=== PATIENT | female | born 1950 | race Caucasian/White ===

== ENCOUNTER 2019-03-08 08:15 | Day surgery (SDC) | payer OTHER, BC ==
--- OUTSIDE RECORDS SUMMARY | 2019-03-08 08:22 | XMS REPORT ---
:1950 Author Organization [facility] Address [facility] [address] [place] [address] Care Team Providers Name Role Phone TARIQ OLIVO Unavailable Unavailable Problems This patient has no known problems. Allergies, Adverse Reactions, Alerts This patient has no known allergies or adverse reactions. Medications This patient has no known medications. Results Test Description Test Time Test Comments Text Results Atomic Results Result Comments CSF CULTURE + GRAM STAIN 2016-06-12 08:55:00 Test Item Value Reference Range Comments CULTURE (BEAKER) (test qfev=4784) No growth GRAM STAIN RESULT (BEAKER) (test wqot=9633) No White blood cells seen GRAM STAIN RESULT (BEAKER) (test sddm=81937) No organisms seen HSV 1/2 PCR, [id number] 13:55:00 Test Item Value Reference Range Comments HSV BY PCR (BEAKER) (test hbnm=503) NEGATIVE NEGATIVE Herpes Simplex Virus (HSV) not detected.These assays were performed by real- time PCR utilizing fluorogenic hydrolysis probe technology for the detection of Herpes Simplex Virus-1 and/or Herpes Simplex Virus-2 in approved specimens. A 154 base pair region of the HSV-1 and HSV-2 UL5 gene is amplified, and typing is achieved by using type specific probes. An internal control is used to confirm PCR amplification. Genetic variation and other factors can affect the accuracy of nucleic acid testing; therefore, the results should be interpreted in light of clinical data.This test was developed and its performance characteristics determined by the [facility] Pathology Department, Section of Molecular Pathology. It has not been cleared or approved by the U.S. Food and Drug Administration (FDA), as FDA approval is not required for clinical use of the test. Validation was done as required by the Clinical Laboratory Amendments of 1988.CBC W/PLT COUNT & AUTO [id number] 05:40:00 Test Item Value Reference Range Comments WHITE BLOOD CELL COUNT (BEAKER) (test antm=714) 3.2 K/ L 4.0-10.0 RED BLOOD CELL COUNT (BEAKER) (test lvkb=550) 3.52 M/ L 4.00-5.00 HEMOGLOBIN (BEAKER) (test nzrp=734) 10.5 GM/DL 12.0-15.0 HEMATOCRIT (BEAKER) (test ndky=458) 33.5 % 36.0-45.0 MEAN CORPUSCULAR VOLUME (BEAKER) (test qiul=411) 95.1 fL 82.0-99.0 MEAN CORPUSCULAR HEMOGLOBIN (BEAKER) (test 29.8 pg 27.0-33.0 hjgf=862) MEAN CORPUSCULAR HEMOGLOBIN CONC (BEAKER) (test 31.4 GM/DL 32.0-36.0 ttyd=135) RED CELL DISTRIBUTION WIDTH (BEAKER) (test 12.8 % 10.3-14.2 mmvt=792) PLATELET COUNT (BEAKER) (test jftg=287) 164 K/CU MM 150-430 MEAN PLATELET VOLUME (BEAKER) (test qhcf=190) 7.5 fL 6.5-10.5 NUCLEATED RED BLOOD CELLS (BEAKER) (test 0 /100 WBC 0-0 sfpg=021) NEUTROPHILS RELATIVE PERCENT (BEAKER) (test 83 % rugt=582) LYMPHOCYTES RELATIVE PERCENT (BEAKER) (test 16 % axvl=825) MONOCYTES RELATIVE PERCENT (BEAKER) (test 2 % qish=969) EOSINOPHILS RELATIVE PERCENT (BEAKER) (test 0 % skmc=901) BASOPHILS RELATIVE PERCENT (BEAKER) (test 0 % slas=147) NEUTROPHILS ABSOLUTE COUNT (BEAKER) (test 2.68 K/ L 1.80-8.00 aror=926) LYMPHOCYTES ABSOLUTE COUNT (BEAKER) (test 0.50 K/ L 1.48-4.50 gvoq=453) MONOCYTES ABSOLUTE COUNT (BEAKER) (test 0.05 K/ L 0.00-1.30 vqie=654) EOSINOPHILS ABSOLUTE COUNT (BEAKER) (test 0.00 K/ L 0.00-0.50 cwlk=427) BASOPHILS ABSOLUTE COUNT (BEAKER) (test 0.00 K/ L 0.00-0.20 vlle=526) 0.00BASI METABOLIC [id number] 05:15:00 Test Item Value Reference Range Comments SODIUM (BEAKER) (test 140 meq/L 136-145 fnrq=436) POTASSIUM (BEAKER) (test 4.0 meq/L 3.5-5.1 Specimen slightly jtyu=727) hemolyzed CHLORIDE (BEAKER) (test 107 meq/L 98-107 vnzu=871) CO2 (BEAKER) (test 22 meq/L 22-29 yiqw=671) BLOOD UREA NITROGEN 22 mg/dL 7-21 (BEAKER) (test iywa=674) CREATININE (BEAKER) (test 0.70 mg/dL 0.57-1.25 Specimen slightly nuex=518) hemolyzed GLUCOSE RANDOM (BEAKER) 155 mg/dL 70-105 (test xdio=737) CALCIUM (BEAKER) (test 8.5 mg/dL 8.4-10.2 ffwg=352) EGFR (BEAKER) (test 83 mL/min/1.73 sq m ESTIMATED GFR IS NOT kkgb=7511) ACCURATE CREATININE CLEARANCE IN PREDICTING GLOMERULAR FILTRATION RATE. ESTIMATED GFR IS NOT APPLICABLE FOR DIALYSIS PATIENTS. CBC W/PLT COUNT & AUTO [id number] 10:46:00 Test Item Value Reference Range Comments WHITE BLOOD CELL COUNT (BEAKER) (test fiwj=918) 2.5 K/ L 4.0-10.0 RED BLOOD CELL COUNT (BEAKER) (test hmbw=115) 3.38 M/ L 4.00-5.00 HEMOGLOBIN (BEAKER) (test tzgz=389) 10.6 GM/DL 12.0-15.0 HEMATOCRIT (BEAKER) (test qyqr=614) 32.9 % 36.0-45.0 MEAN CORPUSCULAR VOLUME (BEAKER) (test tgkv=181) 97.2 fL 82.0-99.0 MEAN CORPUSCULAR HEMOGLOBIN (BEAKER) (test 31.2 pg 27.0-33.0 kmaz=264) MEAN CORPUSCULAR HEMOGLOBIN CONC (BEAKER) (test 32.1 GM/DL 32.0-36.0 ngot=463) RED CELL DISTRIBUTION WIDTH (BEAKER) (test 13.8 % 10.3-14.2 qchx=418) PLATELET COUNT (BEAKER) (test bkiv=860) 146 K/CU MM 150-430 MEAN PLATELET VOLUME (BEAKER) (test wrqf=864) 7.1 fL 6.5-10.5 NUCLEATED RED BLOOD CELLS (BEAKER) (test 0 /100 WBC 0-0 cabm=275) NEUTROPHILS RELATIVE PERCENT (BEAKER) (test 44 % myli=366) LYMPHOCYTES RELATIVE PERCENT (BEAKER) (test 39 % iddx=245) MONOCYTES RELATIVE PERCENT (BEAKER) (test 13 % kbds=538) EOSINOPHILS RELATIVE PERCENT (BEAKER) (test 4 % ieup=164) BASOPHILS RELATIVE PERCENT (BEAKER) (test 1 % quih=664) NEUTROPHILS ABSOLUTE COUNT (BEAKER) (test 1.10 K/ L 1.80-8.00 hfsv=150) LYMPHOCYTES ABSOLUTE COUNT (BEAKER) (test 0.98 K/ L 1.48-4.50 jxfz=990) MONOCYTES ABSOLUTE COUNT (BEAKER) (test 0.33 K/ L 0.00-1.30 vews=593) EOSINOPHILS ABSOLUTE COUNT (BEAKER) (test 0.10 K/ L 0.00-0.50 duyr=252) BASOPHILS ABSOLUTE COUNT (BEAKER) (test 0.01 K/ L 0.00-0.20 bppj=604) 0.000.500.000.000.000.000.00(MANUAL DIFFERENTIAL)2016-06-09 10:46:00 Test Item Value Reference Range Comments TOTAL COUNTED (BEAKER) (test kkkr=9784) WBC MORPHOLOGY (BEAKER) (test kfkt=972) Normal PLT MORPHOLOGY (BEAKER) (test xamv=629) Normal RBC MORPHOLOGY (BEAKER) (test dvtl=158) Normal BASIC METABOLIC [id number] 05:41:00 Test Item Value Reference Range Comments SODIUM (BEAKER) (test 141 meq/L 136-145 mdgx=907) POTASSIUM (BEAKER) (test 3.5 meq/L 3.5-5.1 dvlj=271) CHLORIDE (BEAKER) (test 107 meq/L 98-107 yldw=988) CO2 (BEAKER) (test 24 meq/L 22-29 lcic=298) BLOOD UREA NITROGEN 13 mg/dL 7-21 (BEAKER) (test kmnr=600) CREATININE (BEAKER) (test 0.64 mg/dL 0.57-1.25 wfpp=952) GLUCOSE RANDOM (BEAKER) 106 mg/dL 70-105 (test tbkc=347) CALCIUM (BEAKER) (test 8.4 mg/dL 8.4-10.2 qyzs=098) EGFR (BEAKER) (test 93 mL/min/1.73 sq m ESTIMATED GFR IS NOT qels=4350) ACCURATE CREATININE CLEARANCE IN PREDICTING GLOMERULAR FILTRATION RATE. ESTIMATED GFR IS NOT APPLICABLE FOR DIALYSIS PATIENTS. CSF CELL COUNT [id number] 17:59:00 Test Item Value Reference Range Comments APPEARANCE CSF (BEAKER) (test ebmz=980) Clear Clear COLOR CSF (BEAKER) (test idjl=421) Colorless Colorless RBC CSF (BEAKER) (test rgmc=049) 59 /cu mm 0-5 WBC CSF (BEAKER) (test qxll=1884) 9 /cu mm <=5 RBCS FRESH (BEAKER) (test btla=8644) 100% Fresh NUMBER OF CELLS DIFF'D (BEAKER) (test rojf=3660) 20 NEUTROPHIL, CSF (BEAKER) (test usan=229) 0 % 0-5 LYMPHS CSF (BEAKER) (test nrcw=294) 80 % 40-80 MONO/MACROPHAGE CSF (BEAKER) (test svnx=807) 20 % 15-45 EOSINOPHILS CSF (BEAKER) (test mrro=328) 0 % <=0 BASO CSF (BEAKER) (test chxu=932) 0 % <=0 TUBE NUMBER CSF (BEAKER) (test euto=7535) 1 GLUCOSE, [id number] 17:10:00 Test Item Value Reference Range Comments GLUCOSE CSF (BEAKER) (test wkby=824) 55 mg/dL 40-70 PROTEIN, [id number] 17:10:00 Test Item Value Reference Range Comments PROTEIN CSF (BEAKER) (test aqcz=507) 59 mg/dL 15-45 HEMOGLOBIN [id number] 10:13:00 Test Item Value Reference Range Comments HEMOGLOBIN A1C (BEAKER) (test zomw=460) 5.2 % 4.3-6.1 BASIC METABOLIC [id number] 06:16:00 Test Item Value Reference Range Comments SODIUM (BEAKER) (test 137 meq/L 136-145 kihb=763) POTASSIUM (BEAKER) (test 3.9 meq/L 3.5-5.1 ddpf=242) CHLORIDE (BEAKER) (test 105 meq/L 98-107 qnvr=675) CO2 (BEAKER) (test 22 meq/L 22-29 leve=217) BLOOD UREA NITROGEN 12 mg/dL 7-21 (BEAKER) (test gbls=665) CREATININE (BEAKER) (test 0.60 mg/dL 0.57-1.25 jxco=120) GLUCOSE RANDOM (BEAKER) 87 mg/dL 70-105 (test jmzp=290) CALCIUM (BEAKER) (test 7.8 mg/dL 8.4-10.2 vwpu=564) EGFR (BEAKER) (test 100 mL/min/1.73 sq m ESTIMATED GFR IS NOT flmd=3806) ACCURATE CREATININE CLEARANCE IN PREDICTING GLOMERULAR FILTRATION RATE. ESTIMATED GFR IS NOT APPLICABLE FOR DIALYSIS PATIENTS. LIPID [id number] 06:07:00 Test Item Value Reference Range Comments TRIGLYCERIDES (BEAKER) (test iehu=135) 141 mg/dL CHOLESTEROL (BEAKER) (test pvgx=192) 194 mg/dL HDL CHOLESTEROL (BEAKER) (test vecf=051) 56 mg/dL LDL CHOLESTEROL CALCULATED (BEAKER) (test 110 mg/dL wljf=190) Triglyceride Reference Range: Low Risk <150 Borderline 150- 199 High Risk 200-499 Very High Risk >=500Cholesterol Reference Range: Low Risk <200 Borderline 200-239 High Risk > 240HDL Cholesterol Reference Range: Low Risk >=60 High Risk <40LDL Cholesterol Reference Range: Optimal <100 Near Optimal 100-129 Borderline 130-159 High 160-189 Very High >=190HEPATIC FUNCTION [id number] 06:07:00 Test Item Value Reference Range Comments TOTAL PROTEIN (BEAKER) (test fhxx=815) 5.5 gm/dL 6.0-8.3 ALBUMIN (BEAKER) (test btff=8042) 3.2 g/dL 3.5-5.0 BILIRUBIN TOTAL (BEAKER) (test tfnb=456) 0.5 mg/dL 0.2-1.2 BILIRUBIN DIRECT (BEAKER) (test scnh=445) 0.2 mg/dL 0.1-0.5 ALKALINE PHOSPHATASE (BEAKER) (test rihd=007) 59 U/L 40-150 AST (SGOT) (BEAKER) (test jbuk=503) 16 U/L 5-34 ALT (SGPT) (BEAKER) (test ojnb=761) 8 U/L 6-55 BASIC METABOLIC [id number] 05:40:00 Test Item Value Reference Range Comments SODIUM (BEAKER) (test 138 meq/L 136-145 urlz=326) POTASSIUM (BEAKER) (test 3.9 meq/L 3.5-5.1 qvoz=024) CHLORIDE (BEAKER) (test 107 meq/L 98-107 zzjv=680) CO2 (BEAKER) (test 23 meq/L 22-29 gjxs=742) BLOOD UREA NITROGEN 12 mg/dL 7-21 (BEAKER) (test fxvb=564) CREATININE (BEAKER) (test 0.59 mg/dL 0.57-1.25 rpfj=049) GLUCOSE RANDOM (BEAKER) 90 mg/dL 70-105 (test valh=758) CALCIUM (BEAKER) (test 7.8 mg/dL 8.4-10.2 baay=520) EGFR (BEAKER) (test 102 mL/min/1.73 sq m ESTIMATED GFR IS NOT emki=2116) ACCURATE CREATININE CLEARANCE IN PREDICTING GLOMERULAR FILTRATION RATE. ESTIMATED GFR IS NOT APPLICABLE FOR DIALYSIS PATIENTS. CBC W/PLT COUNT & AUTO [id number] 05:37:00 Test Item Value Reference Range Comments WHITE BLOOD CELL COUNT (BEAKER) (test utnh=247) 3.9 K/ L 4.0-10.0 RED BLOOD CELL COUNT (BEAKER) (test drlc=809) 3.45 M/ L 4.00-5.00 HEMOGLOBIN (BEAKER) (test lyel=378) 10.4 GM/DL 12.0-15.0 HEMATOCRIT (BEAKER) (test ihij=187) 32.6 % 36.0-45.0 MEAN CORPUSCULAR VOLUME (BEAKER) (test rgwh=270) 94.6 fL 82.0-99.0 MEAN CORPUSCULAR HEMOGLOBIN (BEAKER) (test 30.2 pg 27.0-33.0 gmen=634) MEAN CORPUSCULAR HEMOGLOBIN CONC (BEAKER) (test 32.0 GM/DL 32.0-36.0 smnp=902) RED CELL DISTRIBUTION WIDTH (BEAKER) (test 12.8 % 10.3-14.2 lqnj=915) PLATELET COUNT (BEAKER) (test jpns=241) 159 K/CU MM 150-430 MEAN PLATELET VOLUME (BEAKER) (test vmeq=612) 7.0 fL 6.5-10.5 NUCLEATED RED BLOOD CELLS (BEAKER) (test 0 /100 WBC 0-0 obcn=011) NEUTROPHILS RELATIVE PERCENT (BEAKER) (test 71 % oake=944) LYMPHOCYTES RELATIVE PERCENT (BEAKER) (test 16 % jzvl=143) MONOCYTES RELATIVE PERCENT (BEAKER) (test 11 % axxm=392) EOSINOPHILS RELATIVE PERCENT (BEAKER) (test 2 % mvtk=502) BASOPHILS RELATIVE PERCENT (BEAKER) (test 1 % hzpr=429) NEUTROPHILS ABSOLUTE COUNT (BEAKER) (test 2.75 K/ L 1.80-8.00 sudp=022) LYMPHOCYTES ABSOLUTE COUNT (BEAKER) (test 0.61 K/ L 1.48-4.50 hzwd=625) MONOCYTES ABSOLUTE COUNT (BEAKER) (test 0.43 K/ L 0.00-1.30 jcfz=537) EOSINOPHILS ABSOLUTE COUNT (BEAKER) (test 0.09 K/ L 0.00-0.50 yjbl=980) BASOPHILS ABSOLUTE COUNT (BEAKER) (test 0.02 K/ L 0.00-0.20 fkfz=375) [id number] 05:30:00 Test Item Value Reference Range Comments PROTIME (BEAKER) (test afss=389) 12.8 seconds 11.7-14.7 INR (BEAKER) (test pwqh=155) 1.0 <=5.9 PARTIAL THROMBOPLASTIN TIME (BEAKER) (test 26.3 seconds 22.5-36.0 pluw=548) RECOMMENDED COUMADIN/WARFARIN INR THERAPY RANGESSTANDARD DOSE: 2.0 - 3.0 Includes: PROPHYLAXIS forvenous thrombosis, systemic embolization; TREATMENT for venous thrombosis and/or pulmonary embolus.HIGH RISK: Target INR is 2.5-3.5 for patients with mechanical heart valves.POCT-GLUCOSE [id number] 22:11:00 Test Item Value Reference Range Comments POC-GLUCOSE METER (BEAKER) 107 mg/dL 70-110 TESTED AT [facility] [address] [facility] (test vsgl=5086) [facility] [address]
--- OUTSIDE RECORDS SUMMARY | 2019-03-08 08:22 | XMS REPORT ---
:1950 Author Organization [employer] Care Team Providers Name Role Phone Ranjan Membreno Provider Role Unavailable Allergies, Adverse Reactions, Alerts Substance Reaction Event Type codine Info Not Available Drug Allergy Sulfa Info Not Available Drug Allergy Problems Problem Type Condition Code Onset Dates Condition Status Assessment Pain of right hip joint M25.551 Active Assessment Right sciatic nerve pain M54.31 Active Problem Pain of right hip joint M25.551 Active Problem Abnormal mammogram R92.8 Active Problem Right sciatic nerve pain M54.31 Active Problem Asthma, unspecified asthma J45.909 Active severity, unspecified whether complicated, unspecified whether persistent Problem Essential hypertension I10 Active Problem Rheumatoid arthritis involving M06.9 Active multiple sites, unspecified rheumatoid factor presence Medications Medication Code Code Instructions Start End Status Dosage System Date Date Ferrous Sulfate [facility] 75946532645 325 (65 Fe) MG Active 1 tablet Orally Once a day Simvastatin ND 53525903084 20 MG Orally Active 1 tablet Once a day in the evening Leflunomide [facility] 54305263835 20 MG Orally Active 1 tablet Once a day Montelukast [facility] 75594450967 10 MG Orally Active 1 tablet Sodium Once a day Levothyroxine [facility] 98931972544 75 MCG Orally Active 1 tablet Sodium Once a day on an empty stomach in the morning Symbicort [facility] 73027747315 160-4.5 MCG/ACT Active 2 puffs Inhalation Twice a day Ibuprofen [facility] [address]-99 800 MG/8ML Active as Intravenous directed Lyrica [facility] 62180485221 100 MG Orally Active 1 capsule Three times a day Omeprazole ND 08621853932 20 MG Orally Active 1 capsule Once a day Lisinopril ND 21974396390 20 MG Orally Active 1 tablet Once a day ProAir HFA [facility] 70644375799 108 (90 Base) Active 2 puffs as MCG/ACT needed Inhalation every 6 hrs Results No Known Results Summary Purpose eClinicalWorks Submission
[2019-03-08 08:48] LABS: MPV 8.1 fL (7.6-11.3)
[2019-03-08 08:54] VITALS: BMI 28.3
[2019-03-08 08:57] LABS: Protime INR 0.99
[2019-03-08 09:22] LABS: Platelet Estimate ADEQ
[2019-03-08] MEDS ORDERED: ACETAMINOPHEN 500 MG TAB ONE (11:03)
--- NOTE | 2019-03-08 11:06 | RAD REPORT ---
EXAM DESCRIPTION: RAD - Spine Lumbar W obliques - 03/08/2019 10:43 am CLINICAL HISTORY: Back pain FINDINGS: Posterior fusion L4 and L5. Pedicular screws united by rods and bone plugs have been plac ed. Bones are osteoporotic. No fracture or dislocation Osteoarthritis involves the facet joints L5-S1
[2019-03-08 11:12] VITALS: O2SAT 96
--- NOTE | 2019-03-08 11:26 | RAD REPORT ---
EXAM DESCRIPTION: CTSpine Lumbar Wo Con03/08/2019 10:47 am CLINICAL HISTORY: Radiculopathy M54.5,M47.26 COMPARISON: December 2018 MRI TECHNIQUE: Computed axial tomography lumbar spine was obtained with coronal and sagittal reconstruct ion. 12 cc Isovue 200 was administered into the thecal sac All CT scans are performed using dose optimization technique as appropriate and may include automated exposure control or mA/KV adjustment according to patient size. FINDINGS: Minimal disc bulge L1-2 Disc bulge L2-3 mildly encroaches upon the thecal sac. The neural foramina are patent Disc bulge, ligamentum flavum and facet hypertrophy are present at L3-4. The thecal sac measures 9 mi llimeters. Mild narrowing of the neural foramina bilaterally Pedicular screws united by rods have been placed at L4 and L5. A bone plug is present at L4-5. A heidi laminectomy is present. The thecal sac is normal caliber. The neural foramina are patent. Specificall y the right neural foramina is not narrowed. Disc bulge and osteophyte L5-S1. Ligamentum flavum and facet hypertrophy. Mild narrowing of the theca l sac. Small right lateral disc herniation. Moderate to marked narrowing of the right neural foramina . IMPRESSION: Spondylosis L3-4 results in mild central spinal stenosis Posterior fusion L4 and L5 Spondylosis and small right lateral disc herniation L5-S1. This results in moderate to marked right f oraminal stenosis
--- NOTE | 2019-03-08 12:44 | RAD REPORT ---
EXAM DESCRIPTION: RAD - Myelography Lumbar - 03/08/2019 10:43 am CLINICAL HISTORY: Radiculopathy COMPARISON: MRI December 2018 TECHNIQUE: The procedure, risks and alternatives to the procedure were discussed with the patient in detail. After answering all questions, both oral and written consent were obtained. The patient was placed prone into the fluoroscopy suite. The skin and subcutaneous tissues were anest hetized with lidocaine. Under fluoroscopic guidance a 22 gauge spinal needle was advanced into the th ecal sac at the L2-3 level. 12 cc Isovue 200 was administered into the subarachnoid spaces 5 Fluoroscopic spot images were obtained. Fluoroscopy time 1.4 minutes. The patient then left for a CT scan. Patient's head was elevated 30 degrees IMPRESSION: Lumbar myelogram. Refer to the CT scan report for findings The patient experienced immediate complication
[2019-03-08 14:03] VITALS: BP 118/47; TEMP 97
== END 2019-03-08 13:00 | disposition home or self-care (01) ==
LOC: DS 08:15
PROVIDERS: ATTEND Specialist
DX: M54.5 Low back pain (principal); M47.26 Other spondylosis with radiculopathy, lumbar region
CPT/HCPCS: 36415; 62304; 72110; 72131; 85049; 85610; 85730

== ENCOUNTER 2020-02-03 10:09 | Day surgery (SDC) | payer OTHER, BC ==
[2020-02-01 15:58] LABS: Protime INR 1.23
--- NOTE | 2020-02-02 11:45 | EKG ---
Test Date: 2020-02-01 Test Time: 14:49:19 Property Insurance Claims Examiner: JEREMÍAS MEASUREMENT RESULTS: Intervals: Rate: 87 MN: 198 QRSD: 76 QT: 366 QTc: 440 [place]: P: 59 MN: 198 QRS: 0 T: 76 INTERPRETIVE STATEMENTS: Normal sinus rhythm Nonspecific ST abnormality Abnormal ECG Compared to ECG 10/06/2019 12:34:50 ST (T wave) deviation now present Atrial premature complex(es) no longer present Aberrant conduction of supraventricular beat(s) no longer present Left ventricular hypertrophy no longer present Electronically Signed On 02-02-20 11:40:47 NEIGHBORHOOD AIDE by Ney Nelson
--- OUTSIDE RECORDS SUMMARY | 2020-02-03 10:11 | XMS REPORT | Clinical Summary ---
:1950 Author Organization [facility] Address [address] [place] [address] Care Team Providers Name Role Phone Unavailable Primary Care Provider Unavailable Allergies Active Allergy Reactions Severity Noted Date Comments Codeine Nausea And Vomiting High 06/07/2016 Sulfa (Sulfonamide Antibiotics) Nausea And Vomiting High Tramadol Nausea And Vomiting High 06/08/2016 Medications Medication Sig Dispensed Refills Start Date End Date Status lisinopril Take 20 mg by 0 Activ e (PRINIVIL,ZESTRIL) 20 mouth daily. MG tablet omeprazole (PRILOSEC) Take 20 mg by 0 Active 20 MG capsule mouth daily. leflunomide (ARAVA) 20 Take 20 mg by 0 Active MG tablet mouth daily. predniSONE (DELTASONE) Take 5 mg by 0 Active 5 MG tablet mouth daily. calcium Take 1 tablet by 0 Act les carbonate-vitamin D3 mouth daily. (OSCAL-D) 500 mg(1,250mg) -200 unit per tablet coenzyme Q10 200 mg Take 200 mg by 0 Active capsule mouth daily. Active Problems Problem Noted Date Headache, unspecified headache type 06/07/2016 Social History Tobacco Use Types Packs/Day Years Used Date Never Smoker Alcohol Use Drinks/Week oz/Week Comments Not Asked Sex Assigned at Date Recorded Not on file Last Filed Vital Signs Not on file Plan of Treatment Not on file Results Not on fileafter 02/02/2019 Insurance Payer Benefit Plan / Subscriber ID Effective Dates Phone Addre ss Type Group MEDICARE MEDICARE A B [id number] 2013-Present Medicare [facility] POS [id number] 2016-Present HMO/POS - MGD CARE SELECT CHOICE Advance Directives For more information, please contact: [phone] Code Status Date Activated Date Inactivated Comments Full Code 06/07/2016 10:02 PM 06/11/2016 8:18 PM This code status was determined by: Patient
--- OUTSIDE RECORDS SUMMARY | 2020-02-03 10:12 | XMS REPORT ---
:1950 Author Organization [employer] Care Team Providers Name Role Phone Vivian Lala Provider Role Unavailable Allergies, Adverse Reactions, Alerts Substance Reaction Event Type Iron (Ferrous Gluconate) constipation Drug Allergy Sulfur Info Not Available Drug Allergy Remicade severe headaches Drug Allergy Hydroxychloroquine Sulfate nausea with Tramadol Drug Allergy Codeine Sulfate Info Not Available Drug Allergy Problems Problem Type Condition Code Onset Dates Condition Statu s Assessment Rheumatoid arthritis with M05.79 Ac tive rheumatoid factor of multiple sites without organ or systems involvement Assessment Pain, joint, multiple sites M25.50 Active Problem 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 therapy Problem Postmenopausal Z78.0 Active Problem Encounter for immunization Z23 A ctive Problem Benign essential hypertension I10 Active Problem Rheumatoid arthritis with M05.79 Ac tive rheumatoid factor of multiple sites without organ or systems involvement Problem Abnormal immunological finding in R76.9 Active serum Problem Osteoarthritis M19.90 Active Assessment Postmenopausal Z78.0 Active Assessment Other fpc (current) drug Z79.899 Active therapy Assessment Abnormal immunological finding in R76.9 Active serum Assessment Benign essential hypertension I10 Active Assessment Osteoarthritis M19.90 Active Medications Medication Code Code Instructions Start End Status Dosage System Date Date Ezetimibe [facility] 43560619069 10 MG Orally Active 1 tab let Once a day Omeprazole [facility] 23759844193 20 MG Orally Active 1 ca psule Once a day Ibuprofen [facility] 07843175795 800 MG Active TAKE 1 TABLET BY MOUTH TWICE A DAY WITH FOOD OR MILK NEEDED Montelukast ND 15664106873 10 MG Orally Active 1 t ablet in Sodium Once a day the evening Lyrica ND 70463803560 100 MG Orally Active 1 caps ule Once a day Cimzia [facility] 00010837416 2 X 200 MG/ML July 29Feb 09, Active 1 ml Prefilled Subcutaneous 2019 2019 every 2 weeks Leflunomide ND 83269084612 20 MG Orally Active 1 t ablet Once a day Duloxetine HCl ND 57618154140 60 MG Orally Active 1 capsule Once a day Lisinopril [facility] 52259451907 20 MG Orally Active 1 ta blet Once a day Albuterol ND 0 twice a day Active as direc ortiz (bid) as needed (prn) Symbicort [facility] 47234921215 160-4.5 MCG/ACT Active 2 puffs Inhalation Twice a day Vital Signs Date/Time: Dec 28, 2019 BMI 29.05 Index Weight 180 lbs Height 66 in Cardiac Monitoring Heart Rate 92 /min Blood Pressure Diastolic 98 mm Hg Blood Pressure Systolic 149 mm Hg Results No Known Results Summary Purpose eClinicalWorks Submission
--- OUTSIDE RECORDS SUMMARY | 2020-02-03 10:12 | XMS REPORT ---
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 91447217812 100 MG Orally Nov , Active 1 tablet twice a day 2019 (bid) Results No Known Results Summary Purpose eClinicalWorks Submission
--- OUTSIDE RECORDS SUMMARY | 2020-02-03 10:12 | XMS REPORT | Continuity of Care Document ---
:1950 Author Organization [employer] Care Team Providers Name Role Phone [employer] Unavailable Un available Problems Problem Status Onset Classification Date Comments Sourc e Date Reported Benign essential Active Problem 01/09/2020 [facility] hypertension [facility] [place] Rheumatoid Active Problem 01/09/[address] arthritis with of [facility] rheumatoid factor of multiple sites without organ or systems involvement Osteoarthritis Active Problem 01/09/2020 [facility] [place] Other [facility] Active Problem 01/09/2020 [facility] (current) drug of [facility] therapy Anemia Active Diagnosis 04/07/2019 [facility] [place] Heartburn Active Diagnosis 07/24/2019 [facility] [place] Pain in joint Active Diagnosis 07/24/2019 [facility] involving multiple o f [place] sites Postmenopausal Active Problem 01/09/2020 [facility] [place] Encounter for Active Problem 01/09/2020 [facility] immunization [facility] [place] Abnormal Active Problem 01/09/2020 [facility] immunological [facility] [place] finding in serum Pain, joint, Active Diagnosis 12/29/2019 [facility] multiple sites of [facility] Medications Medication Details Route Status Patient Ordering Order Source Instructions Provider Date Trimethoprim 1 tablet Orally Active 100 MG Orally Vo [facility] twice a day 020 [facility] (bid) [place] Leflunomide 1 tablet Orally Active 20 MG Orally Vo [facility] Once a day 020 [facility] [place] Cimzia 1 ml Subcutaneous Active 2 X 200 MG/ML [facility] Prefilled Subcutaneous 020 [facility] every 2 weeks [place] Duloxetine HCl 2 capsules Orally Active 30 MG Orally Vo R heum Once a day 020 [facility] [place] Leflunomide 1 tablet orally Active 20 mg orally Vo [facility] every day (qd) 019 [facility] [place] Rinvoq 1 tablet Orally Active 15 MG Orally Vo [facility] Once a day 019 [facility] [place] PredniSONE 1 tablet Orally Active 10 mg Orally [facility] Once a day 019 [facility] [place] Lyrica 1 capsule Orally Active 100 MG Orally [facility] Once a day [facility] [place] Iron 1 tablet Orally Active 325 (65 Fe) MG Vo [facility] Orally Once a [facility] of day [place] Albuterol as NA Active twice a day [facility] directed (bid) as [facility]tr of needed (prn) [place] Lisinopril 1 tablet Orally Active 20 MG Orally Vo [facility] Once a day [facility] [place] Omeprazole 1 capsule Orally Active 20 MG Orally [facility] Once a day [facility] [place] Promethazine 0.5 tablet Orally Active 50 MG Orally Vo [facility] HCl as needed every 12 hrs [facility] [place] Montelukast 1 tablet Orally Active 10 MG Orally [facility] Sodium in the Once a day [facility]tr of evening [place] Symbicort 2 puffs Inhalation Active 160-4.5 [facility] MCG/ACT [facility] Inhalation [place] Twice a day Ibuprofen TAKE 1 NA Active 800 MG [facility] TABLET BY [facility] MOUTH [place] TWICE A DAY WITH FOOD OR MILK NEEDED Lyrica 1 capsule Orally Active 75 MG Orally Vo [facility] Twice a day [facility] [place] Orencia 1 ml Subcutaneous Active 125 MG/ML Vo [facility] ClickJect Subcutaneous [facility]tr of once a week [place] Leflunomide 1 tablet Orally Active 20 MG Orally [facility] Once a day [facility] [place] Duloxetine HCl 1 capsule Orally Active 60 MG Orally [facility] Rh eum Once a day [facility] [place] Ezetimibe 1 tablet Orally Active 10 MG Orally [facility] Once a day [facility] [place] Omeprazole 1 capsule Orally Active 20 MG Orally [facility] Once a day [facility] [place] Lisinopril 1 tablet Orally Active 20 MG Orally [facility] Once a day [facility] [place] Allergies, Adverse Reactions, Alerts Substance Category Reaction Severity Reaction Status Date Comments S ource type Reported Iron (Ferrous Adverse constipation Adverse Active Rhe[facility] Gluconate) Reaction Reaction 0 [facility] [place] Sulfur Adverse Info Not Adverse Active Rhe[facility] Reaction Available Reaction 0 [facility] [place] Remicade Adverse severe Adverse Active [facility] Reaction headaches Reaction 0 [facility] [place] Hydroxychloroq Adverse nausea with Adverse Active Rhe[facility] uine Sulfate Reaction Tramadol Reaction 0 [facility] [place] Codeine Adverse Info Not Adverse Active [facility] Sulfate Reaction Available Reaction 0 [facility] [place] Immunizations No Data Provided for This Section Results No Data Provided for This Section Pathology Reports No Data Provided for This Section Diagnostic Reports No Data Provided for This Section Consultation Notes No Data Provided for This Section Discharge Summaries No Data Provided for This Section History and Physicals No Data Provided for This Section Vital Signs Vital Sign Value Date Comments Source Weight 180 12/28/2019 [facility] Height 66 12/28/2019 [facility] Heart Rate 92 12/28/2019 [facility] Diastolic (mm Hg) 98 12/28/2019 [facility] [place] Systolic (mm Hg) 149 12/28/2019 [facility] [place] Weight 174 04/06/2019 [facility] Height 66 04/06/2019 [facility] Heart Rate 97 04/06/2019 [facility] Diastolic (mm Hg) 98 04/06/2019 [facility] [place] Systolic (mm Hg) 161 04/06/2019 [facility] [place] Weight 187 02/02/2019 [facility] Height 66 02/02/2019 [facility] Heart Rate 85 02/02/2019 [facility] Diastolic (mm Hg) 83 02/02/2019 [facility] [place] Systolic (mm Hg) 144 02/02/2019 [facility] [place] Weight 169 11/10/2018 [facility] Height 66 11/10/2018 [facility] Heart Rate 95 11/10/2018 [facility] Diastolic (mm Hg) 81 11/10/2018 [facility] [place] Systolic (mm Hg) 143 11/10/2018 [facility] [place] Encounters No Data Provided for This Section Procedures No Data Provided for This Section Assessment and Plan No Data Provided for This Section Plan of Care No Data Provided for This Section Social History No Data Provided for This Section Family History No Data Provided for This Section Advance Directives No Data Provided for This Section Functional Status No Data Provided for This Section
--- OUTSIDE RECORDS SUMMARY | 2020-02-03 10:12 | XMS REPORT ---
:1950 Author Organization [employer] Care Team Providers Name Role Phone Gina Méndez Provider Role Unavailable Allergies No Known Allergies Problems Problem Type Condition Code Onset Dates Condition Statu s Assessment Rheumatoid arthritis with M05.79 Ac tive rheumatoid factor of multiple sites without organ or systems involvement Problem Other fdc (current) drug Z79.899 Active therapy Problem Postmenopausal Z78.0 Active Problem Encounter for immunization Z23 A ctive Problem Benign essential hypertension I10 Active Problem Rheumatoid arthritis with M05.79 Ac tive rheumatoid factor of multiple sites without organ or systems involvement Problem Abnormal immunological finding in R76.9 Active serum Problem Osteoarthritis M19.90 Active Medications Medication Code Code Instructions Start End Status Dosage System Date Date Duloxetine HCl [facility] [id number] 60 MG Orally Active 1 capsule Once a day Results No Known Results Summary Purpose [employer] Submission
--- OUTSIDE RECORDS SUMMARY | 2020-02-03 10:13 | XMS REPORT | Continuity of Care Document ---
:1950 Author Organization [facility] [place] t Address [facility] [address] [place] [address] Care Team Providers Name Role Phone KINSEY OLIVO Attending Clinician Unavailable KINSEY OLIVO Admitting Clinician Unavailable Problems Condition Condition Condition Status Onset Resolution Last Treating Co mments Source Name Details Category Date Date Treatment Clinician Date Headache, Headache, Disease Active [facility] unspecifie unspecifie 4-14 Maryam kes - d headache d headache 00:00: Me dical type type 00 Center Pain of Pain of Problem Active [facility] right hip right hip [facility] - joint joint [facility] Right Right Problem Active [facility] sciatic sciatic [facility] - nerve pain nerve pain Me moria l [facility] Clinics Abnormal Abnormal Problem Active [facility] mammogram mammogram [facility] - [facility] Asthma, Asthma, Problem Active [facility] unspecifie unspecifie Maryam kes - d asthma d asthma Memori a severity, severity, l unspecifie unspecifie Ou tpati d whether d whether ent complicate complicate Cl inics d, d, unspecifie unspecifie d whether d whether persistent persistent Essential Essential Problem Active [facility] hypertensi hypertensi Maryam kes - on on [facility] Rheumatoid Rheumatoid Problem Active [facility] arthritis arthritis Luke [facility] - involving involving Gordon nora multiple multiple l sites, sites, Outpati unspecifie unspecifie en t d d Clinics rheumatoid rheumatoid factor factor presence presence Benign Problem Active 2020-01-09 Memor ia essential 03:45:57 l hypertensi Benign Herm sammie on essential hypertensi on Active Problem 0 [facility] Rheumatoid Problem Active 2020-01-09 M emoria arthritis 03:45:57 l with [place] rheumatoid Rheumatoid factor of arthritis multiple with sites rheumatoid without factor of organ or multiple systems sites involvemen without t organ or systems involvemen t Active Problem 01/09/2020 [facility] Osteoarthr Problem Active 2020-01-09 M emoria itis 03:45:57 l [place] Osteoarthr itis Active Problem 01/09/2020 [facility] Other long Problem Active 2020-01-09 M emoria term 03:45:57 l (current) Other Sebastian n drug intermediate card tender therapy (current) drug therapy Active Problem 01/09/2020 [facility] Anemia Diagnosis Active 2019-04-07 Mem oria 03:45:32 l Anemia Carter Active Diagnosis 04/07/2019 [facility] Heartburn Diagnosis Active 2019-07-24 Memoria 02:45:19 l [place] Heartburn Active Diagnosis 07/24/2019 [facility] Postmenopa Problem Active 2020-01-09 M emoria usal 03:45:57 l [place] Postmenopa usal Active Problem 01/09/2020 [facility] Encounter Problem Active 2020-01-09 Nh moria for 03:45:57 l immunizati Sebastian n on Encounter for immunizati on Active Problem 0 [facility] Abnormal Problem Active 2020-01-09 Mem oria immunologi 03:45:57 l eder Abnormal Sebastian n finding in immunologi serum eder finding in serum Active Problem 01/09/2020 [facility] Pain, Diagnosis Active 2019-12-29 Mem oria joint, 03:45:53 l multiple Pain, Carter sites joint, multiple sites Active Diagnosis 12/29/2019 [facility] Allergies, Adverse Reactions, Alerts Allergy Allergy Status Severity Reaction(s) Onset Inactive Treating Comm ents Source Name Type Date Date Clinician Iron Iron Active constipation 2019-02 Gordon nora (Ferrous (Ferrous 1-03 l Gluconat Gluconat 00:00: Sebastian n e) e) 00 Sulfur Sulfur Active Info Not 2019-02 Memoria Available 1-03 l 00:00: [place] 00 Remicade Remicade Active severe 2019-02 Memori a headaches 1-03 l 00:00: [place] 00 Hydroxyc Hydroxyc Active nausea with 2019- M emoria hloroqui hloroqui Tramadol 1-03 l ne ne 00:00: Sulfate Sulfate 00 Codeine Codeine Active Info Not 2019-02 Memori a Sulfate Sulfate Available 1-03 l 00:00: 00 Tramadol Drug Active Nausea And [facility] Int[facility]omiting 4[facility]15 [facility] Center Codeine Drug Active [facility] Allergy [facility] - [facility] Center Sulfa Drug Active Nausea And [facility] (Sulfona Allergy Vomiting 4-14 [facility] - mide 00:00: Medical Antibiot 00 Center ics) codine Adverse Active Info Not [facility] Sulfa Adverse Active Info Not [facility] Social History Social Habit Start Date Stop Date Quantity Comments Source Sex Assigned At [facility] Alcohol intake 2016-06-07 2016-06-07 [facility] es - 00:00:00 00:00:00 [facility] Smoking Status Start Date Stop Date Source Never smoker [facility] Medications Ordered Filled Start Stop Current Ordering Indication Dosage Frequency Signature Comments Components Source Medication Medication Date Date Medication? Clinician (SIG) Name Name Trimethopri 2019-02 Yes Gina 1 tablet Memoria m 1-10 Vo l 00:00: 00 Lyrica 2019-02 Yes Vivian 1 capsule Memor ia 1-04 Vilardo l 03:45: 53 Albuterol 2019-02 Yes Viivan as Memoria -04 Vilardo directed l 03:45: 53 Montelukast 2019-02 Yes Vivian 1 tablet M emoria Sodium -04 Vilardo in the l 03:45: evening 53 Symbicort 2019-02 Yes Vivian 2 puffs Gordon nora -04 Vilardo l 03:45: 53 Ibuprofen 2019-02 Yes Vivian TAKE 1 Memor ia 1-04 Vilardo TABLET BY l 03:45: MOUTH 53 TWICE A DAY WITH FOOD OR MILK NEEDED Leflunomide 2019-02 Yes Vivian 1 tablet M emoria 1-04 Vilardo l 03:45: Carter Duloxetine 2019-1 Yes Vivian 1 capsule M emoria HCl 1-04 Vilardo l 03:45: Carter 53 Ezetimibe 2019- Yes Vivian 1 tablet Mem oria -04 Vilardo l 03:45: Carter Omeprazole 2019- Yes Vivian 1 capsule M emoria -04 Vilardo l 03:45: Carter Lisinopril 2019- Yes Vivian 1 tablet Me moria -04 Vilardo l 03:45: Carter Leflunomide 2019-0 Yes Gina 1 tablet Memoria 8-27 Vo l 00:00: Cimzia 2019-0 Yes Vivian 1 ml Memoria Prefilled 6-05 Vilardo l 00:00: Iron 2019-0 Yes Gina 1 tablet Mem oria 5-30 Vo l 02:45: Carter Lisinopril 2019-0 Yes Gina 1 tablet Memoria 5-30 Vo l 02:45: Carter Omeprazole 2019-0 Yes Gina 1 capsule Memoria 5-30 Vo l 02:45: Carter Promethazin 2019-0 Yes Gina 0.5 tablet Memoria e HCl 5-30 Vo as needed l 02:45: Carter Duloxetine 2019-0 Yes Gina 2 capsules Memoria HCl 2-11 Vo l 00:00: Leflunomide 2018- Yes Gina 1 tablet Memoria 2-16 Vo l 00:00: Rinvoq 2018- Yes Gina 1 tablet M emoria 2-11 Vo l 00:00: Lyrica 2018-0 Yes Gina 1 capsule Memoria 9-18 Vo l 02:45: Carter Orencia 2018-0 Yes Gina 1 ml Gordon nora ClickJect 9-18 Vo l 02:45: Carter PredniSONE 2018-0 Yes Gina 1 tablet Memoria 9-17 Vo l 00:00: lisinopril Yes 20mg QD Take [address] (PRINIVIL,Z 4-18 by mouth Luke s - ESTRIL) 20 18:18: daily. Medic al MG tablet 35 Center omeprazole Yes 20mg QD Take [address] (PRILOSEC) 4-18 by mouth [facility] - 20 MG 18:18: daily. Medical capsule 35 [place] leflunomide Yes 20mg QD Take [address] [facility] (ARAVA) 20 4-18 by mouth [facility] - MG tablet 18:18: daily. Medica l 35 [place] predniSONE Yes 5mg QD Take [address] (DELTASONE) 4-18 by mouth Luke s - 5 MG tablet 18:18: daily. Medi eder 35 [place] calcium Yes 1{tbl} QD Take [address] [facility] carbonate-v 4-18 tablet by Nikki es - itamin D3 18:18: mouth Medical (OSCAL-D) 35 daily. [place] 500 mg(1,250mg) -200 unit per tablet coenzyme Yes 200mg QD Take [address] [facility] Q10 200 mg 4-18 mg by Lukes - capsule 18:18: mouth Medical 35 daily. [place] Ferrous Ferrous Yes Ranjan [address] [facility] Sulfate Sulfate [facility] Clinics Simvastatin Simvastatin Yes Ranjan [address] [facility] Membreno in the [facility] - evening Mem[facility] l Outpat[facility] ent Clinics Leflunomide Leflunomide Yes Ranjan [address] [facility] [facility] [place] Yes Ranjan [address] [facility] Sodium Sodium Membreno [facility] Outpati ent Clinics Levothyroxi Levothyroxi Yes Ranajn [address] [facility] ne Sodium ne Sodium Membreno on an Maryam kes - empty Memoria stomach in l the Outpati morning ent Clinics Symbicort Symbicort Yes Ranjan [address] [facility] Ibuprofen Ibuprofen Yes Ranjan as [facility] directed [facility] Lyrica Lyrica Yes Ranjan [address] [facility] Omeprazole Omeprazole Yes Ranjan [address] [facility] Lisinopril Lisinopril Yes Ranjan [address] [facility] [facility] ProAir HFA ProAir HFA Yes Ranjan [address] [facility] Membreno needed [facility]ics Vital Signs Vital Name Observation Time Observation Value Comments Source Weight 2019-12-28 15:30:00 [facility] [place] Height 2019-12-28 15:30:00 [facility] [place] Heart Rate 2019-12-28 15:30:00 [facility] [place] Diastolic (mm Hg) 2019-12-28 15:30:00 Mem orial [place] Systolic (mm Hg) 2019-12-28 15:30:00 Gordon rial Carter Weight 2019-04-06 17:00:00 [facility] [place] Height 2019-04-06 17:00:00 [facility] [place] Heart Rate 2019-04-06 17:00:00 [facility] [place] Diastolic (mm Hg) 2019-04-06 17:00:00 Mem orial [place] Systolic (mm Hg) 2019-04-06 17:00:00 Gordon rial Carter Weight 2019-02-02 17:00:00 [facility] [place] Height 2019-02-02 17:00:00 [facility] [place] Heart Rate 2019-02-02 17:00:00 [facility] [place] Diastolic (mm Hg) 2019-02-02 17:00:00 Mem orial [place] Systolic (mm Hg) 2019-02-02 17:00:00 Gordon rial [place] Weight 2018-11-10 15:15:00 [facility] [place] Height 2018-11-10 15:15:00 [facility] [place] Heart Rate 2018-11-10 15:15:00 [facility] [place] Diastolic (mm Hg) 2018-11-10 15:15:00 Mem orial [place] Systolic (mm Hg) 2018-11-10 15:15:00 Gordon rial [place] Procedures This patient has no known procedures. Encounters Start End Encounter Admission Attending Care Care Encounter Source Date/Time Date/Time Type Type Clinicians Facility Department ID 2020-01-04 2020-01-04 [facility] - [id number] e[facility]inic 13:26:00 13:26:00 Rheumatol [facility] 2019-12-28 2019-12-28 Outpatient PRL - PRL - [id number] eClinic 09:30:00 09:30:00 Rheumatol [facility] 2019-11-22 2019-11-22 Outpatient [facility] - [id number] eClinic 14:05:00 14:05:00 Rheumatol [facility] 2019-07-23 2019-07-23 Outpatient [facility] - [facility] - [id number] eClinic 12:58:00 12:58:00 Rheumatol [facility] 2019-07-23 2019-07-23 Outpatient [facility] - [facility] - [id number] eClinic 11:30:00 11:30:00 Rheumatol [facility] 2019-04-06 2019-04-06 Outpatient PRL - PRL - [id number] eClinic 11:00:00 11:00:00 Rheumatol [facility] 2019-02-02 2019-02-02 Outpatient [facility] - [facility] - [id number] eClinic 12:07:00 12:07:00 Rheumatol [facility] 2019-02-02 2019-02-02 Outpatient PRL - PRL - [id number] eClinic 11:00:00 11:00:00 Rheumatol [facility] 2018-11-20 2018-11-20 Outpatient [facility] - [facility] - [id number] eClinic 09:07:00 09:07:00 Rheumatol [facility] 2018-11-11 2018-11-11 Outpatient [facility] - [facility] - [id number] eClinic 11:31:00 11:31:00 Rheumatol [facility] 2018-11-10 2018-11-10 Outpatient PRL - PRL - [id number] eClinic 10:15:00 10:15:00 Rheumatol [facility] 2018-09-30 2018-09-30 [facility] [id number] 14:00:00 14:00:00 [facility] Clinics Results Test Description Test Time Test Comments Results Result Comments Source CSF CULTURE + GRAM STAIN 2016-06-12 08:55:00 Test Item Value Reference Range Interpretation Comme nts CULTURE (BEAKER) (test code = 1095) No growth GRAM STAIN RESULT (BEAKER) (test code = 1123) No White blood cells seen GRAM STAIN RESULT (BEAKER) (test code = 35213) No organisms seen HSV 1/2 PCR, [id number] 13:55:00 Test Item Value Reference Range Interpretation Comments HSV BY PCR (BEAKER) (test code = NEGATIVE NEGATIVE 334) Herpes Simplex Virus (HSV) not detected.These assays were performed by real-time PCR utilizing fluorogenic hydrolysis probe technology for [...] and its performance characteristics determined by the [facility] Pathology Department, Section of Molecular Pathology. It has not been cleared or approved by the U.S. Food and Drug Administration (FDA), as FDA approval is not required for clinical use of the test. Validation was done as required by the Clinical Laboratory Amendments of 1988.CBC W/PLT COUNT & AUTO [id number] 05:40:00 Test Item Value Reference Range Interpretation Comments WHITE BLOOD CELL COUNT (BEAKER) 3.2 K/ L 4.0-10.0 L (test code = 775) RED BLOOD CELL COUNT (BEAKER) 3.52 M/ L 4.00-5.00 L (test code = 761) HEMOGLOBIN (BEAKER) (test code = 10.5 GM/DL 12.0-15.0 L 410) HEMATOCRIT (BEAKER) (test code = 33.5 % 36.0-45.0 L 411) MEAN CORPUSCULAR VOLUME (BEAKER) 95.1 fL 82.0-99.0 (test code = 753) MEAN CORPUSCULAR HEMOGLOBIN 29.8 pg 27.0-33.0 (BEAKER) (test code = 751) MEAN CORPUSCULAR HEMOGLOBIN CONC 31.4 GM/DL 32.0-36.0 L (BEAKER) (test code = 752) RED CELL DISTRIBUTION WIDTH 12.8 % 10.3-14.2 (BEAKER) (test code = 412) PLATELET COUNT (BEAKER) (test 164 K/CU MM 150-430 code = 756) MEAN PLATELET VOLUME (BEAKER) 7.5 fL 6.5-10.5 (test code = 754) NUCLEATED RED BLOOD CELLS 0 /100 WBC 0-0 (BEAKER) (test code = 413) NEUTROPHILS RELATIVE PERCENT 83 % (BEAKER) (test code = 429) LYMPHOCYTES RELATIVE PERCENT 16 % (BEAKER) (test code = 430) MONOCYTES RELATIVE PERCENT 2 % (BEAKER) (test code = 431) EOSINOPHILS RELATIVE PERCENT 0 % (BEAKER) (test code = 432) BASOPHILS RELATIVE PERCENT 0 % (BEAKER) (test code = 437) NEUTROPHILS ABSOLUTE COUNT 2.68 K/ L 1.80-8.00 (BEAKER) (test code = 670) LYMPHOCYTES ABSOLUTE COUNT 0.50 K/ L 1.48-4.50 L (BEAKER) (test code = 414) MONOCYTES ABSOLUTE COUNT (BEAKER) 0.05 K/ L 0.00-1.30 (test code = 415) EOSINOPHILS ABSOLUTE COUNT 0.00 K/ L 0.00-0.50 (BEAKER) (test code = 416) BASOPHILS ABSOLUTE COUNT (BEAKER) 0.00 K/ L 0.00-0.20 (test code = 417) 0.00BASI METABOLIC [id number] 05:15:00 Test Item Value Reference Range Interpretation Comments SODIUM (BEAKER) 140 meq/L 136-145 (test code = 381) POTASSIUM (BEAKER) 4.0 meq/L 3.5-5.1 Specimen slightly (test code = 379) hemolyzed CHLORIDE (BEAKER) 107 meq/L 98-107 (test code = 382) CO2 (BEAKER) (test 22 meq/L 22-29 code = 355) BLOOD UREA NITROGEN 22 mg/dL 7-21 H (BEAKER) (test code = 354) CREATININE (BEAKER) 0.70 mg/dL 0.57-1.25 Specimen slightly (test code = 358) hemolyzed GLUCOSE RANDOM 155 mg/dL 70-105 H (BEAKER) (test code = 652) CALCIUM (BEAKER) 8.5 mg/dL 8.4-10.2 (test code = 697) EGFR (BEAKER) (test 83 mL/min/1.73 ESTIMA QUINTEN GFR IS code = 1092) sq m NOT ACCURATE CREATININE CLEARANCE IN PREDICTING GLOMERULAR FILTRATION RATE . ESTIMATED GFR I S NOT APPLICABLE FOR DIALYSIS PATIEN TS. CBC W/PLT COUNT & AUTO [id number] 10:46:00 Test Item Value Reference Range Interpretation Comments WHITE BLOOD CELL COUNT (BEAKER) 2.5 K/ L 4.0-10.0 L (test code = 775) RED BLOOD CELL COUNT (BEAKER) 3.38 M/ L 4.00-5.00 L (test code = 761) HEMOGLOBIN (BEAKER) (test code = 10.6 GM/DL 12.0-15.0 L 410) HEMATOCRIT (BEAKER) (test code = 32.9 % 36.0-45.0 L 411) MEAN CORPUSCULAR VOLUME (BEAKER) 97.2 fL 82.0-99.0 (test code = 753) MEAN CORPUSCULAR HEMOGLOBIN 31.2 pg 27.0-33.0 (BEAKER) (test code = 751) MEAN CORPUSCULAR HEMOGLOBIN CONC 32.1 GM/DL 32.0-36.0 (BEAKER) (test code = 752) RED CELL DISTRIBUTION WIDTH 13.8 % 10.3-14.2 (BEAKER) (test code = 412) PLATELET COUNT (BEAKER) (test 146 K/CU MM 150-430 L code = 756) MEAN PLATELET VOLUME (BEAKER) 7.1 fL 6.5-10.5 (test code = 754) NUCLEATED RED BLOOD CELLS 0 /100 WBC 0-0 (BEAKER) (test code = 413) NEUTROPHILS RELATIVE PERCENT 44 % (BEAKER) (test code = 429) LYMPHOCYTES RELATIVE PERCENT 39 % (BEAKER) (test code = 430) MONOCYTES RELATIVE PERCENT 13 % (BEAKER) (test code = 431) EOSINOPHILS RELATIVE PERCENT 4 % (BEAKER) (test code = 432) BASOPHILS RELATIVE PERCENT 1 % (BEAKER) (test code = 437) NEUTROPHILS ABSOLUTE COUNT 1.10 K/ L 1.80-8.00 L (BEAKER) (test code = 670) LYMPHOCYTES ABSOLUTE COUNT 0.98 K/ L 1.48-4.50 L (BEAKER) (test code = 414) MONOCYTES ABSOLUTE COUNT (BEAKER) 0.33 K/ L 0.00-1.30 (test code = 415) EOSINOPHILS ABSOLUTE COUNT 0.10 K/ L 0.00-0.50 (BEAKER) (test code = 416) BASOPHILS ABSOLUTE COUNT (BEAKER) 0.01 K/ L 0.00-0.20 (test code = 417) 0.000.500.000.000.000.000.00(MANUAL DIFFERENTIAL)2016-06-09 10:46:00 Test Item Value Reference Range Interpretation Comments TOTAL COUNTED (BEAKER) (test code = 1351) WBC MORPHOLOGY (BEAKER) (test code = Normal 487) PLT MORPHOLOGY (BEAKER) (test code = Normal 486) RBC MORPHOLOGY (BEAKER) (test code = Normal 762) BASIC METABOLIC [id number] 05:41:00 Test Item Value Reference Range Interpretation Comments SODIUM (BEAKER) 141 meq/L 136-145 (test code = 381) POTASSIUM (BEAKER) 3.5 meq/L 3.5-5.1 (test code = 379) CHLORIDE (BEAKER) 107 meq/L 98-107 (test code = 382) CO2 (BEAKER) (test 24 meq/L 22-29 code = 355) BLOOD UREA NITROGEN 13 mg/dL 7-21 (BEAKER) (test code = 354) CREATININE (BEAKER) 0.64 mg/dL 0.57-1.25 (test code = 358) GLUCOSE RANDOM 106 mg/dL 70-105 H (BEAKER) (test code = 652) CALCIUM (BEAKER) 8.4 mg/dL 8.4-10.2 (test code = 697) EGFR (BEAKER) (test 93 mL/min/1.73 ESTIMA QUINTEN GFR IS code = 1092) sq m NOT ACCURATE CREATININE CLEARANCE IN PREDICTING GLOMERULAR FILTRATION RATE . ESTIMATED GFR I S NOT APPLICABLE FOR DIALYSIS PATIEN TS. CSF CELL COUNT [id number] 17:59:00 Test Item Value Reference Range Interpretation Comments APPEARANCE CSF (BEAKER) (test code Clear Clear = 407) COLOR CSF (BEAKER) (test code = Colorless Colorless 408) RBC CSF (BEAKER) (test code = 409) 59 /cu mm 0-5 H WBC CSF (BEAKER) (test code = 9 /cu mm <=5 H 1020) RBCS FRESH (BEAKER) (test code = 100% Fresh 1444) NUMBER OF CELLS DIFF'D (BEAKER) 20 (test code = 1591) NEUTROPHIL, CSF (BEAKER) (test 0 % 0-5 code = 324) LYMPHS CSF (BEAKER) (test code = 80 % 40-80 438) MONO/MACROPHAGE CSF (BEAKER) (test 20 % 15-45 code = 439) EOSINOPHILS CSF (BEAKER) (test 0 % <=0 code = 360) BASO CSF (BEAKER) (test code = 0 % <=0 440) TUBE NUMBER CSF (BEAKER) (test 1 code = 2678) GLUCOSE, [id number] 17:10:00 Test Item Value Reference Range Interpretation Comments GLUCOSE CSF (BEAKER) (test code = 55 mg/dL 40-70 406) PROTEIN, [id number] 17:10:00 Test Item Value Reference Range Interpretation Comments PROTEIN CSF (BEAKER) (test code = 59 mg/dL 15-45 H 378) HEMOGLOBIN [id number] 10:13:00 Test Item Value Reference Range Interpretation Comments HEMOGLOBIN A1C (BEAKER) (test code = 5.2 % 4.3-6.1 368) BASIC METABOLIC [id number] 06:16:00 Test Item Value Reference Range Interpretation Comments SODIUM (BEAKER) 137 meq/L 136-145 (test code = 381) POTASSIUM (BEAKER) 3.9 meq/L 3.5-5.1 (test code = 379) CHLORIDE (BEAKER) 105 meq/L 98-107 (test code = 382) CO2 (BEAKER) (test 22 meq/L 22-29 code = 355) BLOOD UREA NITROGEN 12 mg/dL 7-21 (BEAKER) (test code = 354) CREATININE (BEAKER) 0.60 mg/dL 0.57-1.25 (test code = 358) GLUCOSE RANDOM 87 mg/dL 70-105 (BEAKER) (test code = 652) CALCIUM (BEAKER) 7.8 mg/dL 8.4-10.2 L (test code = 697) EGFR (BEAKER) (test 100 mL/min/1.73 ESTIM ATED GFR IS code = 1092) sq m NOT ACCURATE CREATININE CLEARANCE IN PREDICTING GLOMERULAR FILTRATION RATE . ESTIMATED GFR I S NOT APPLICABLE FOR DIALYSIS PATIEN TS. LIPID [id number] 06:07:00 Test Item Value Reference Range Interpretation Comments TRIGLYCERIDES (BEAKER) (test code = 141 mg/dL 540) CHOLESTEROL (BEAKER) (test code = 194 mg/dL 631) HDL CHOLESTEROL (BEAKER) (test code 56 mg/dL = 976) LDL CHOLESTEROL CALCULATED (BEAKER) 110 mg/dL (test code = 633) Triglyceride Reference Range: Low Risk <150 Borderline 150-199 High Risk 200-499 Very High Risk >=500Cholesterol Reference Range: Low Risk <200 Borderline 200-239 High Risk >240HDL Cholesterol Reference Range: Low Risk >=60 High Risk <40LDL Cholesterol Reference Range: Optimal <100 Near Optimal 100-129 Borderline 130-159 High 160-189 Very High >=190HEPATIC FUNCTION [id number] 06:07:00 Test Item Value Reference Range Interpretation Comments TOTAL PROTEIN (BEAKER) (test code = 5.5 gm/dL 6.0-8.3 L 770) ALBUMIN (BEAKER) (test code = 1145) 3.2 g/dL 3.5-5.0 L BILIRUBIN TOTAL (BEAKER) (test code 0.5 mg/dL 0.2-1.2 = 377) BILIRUBIN DIRECT (BEAKER) (test 0.2 mg/dL 0.1-0.5 code = 706) ALKALINE PHOSPHATASE (BEAKER) (test 59 U/L 40-150 code = 346) AST (SGOT) (BEAKER) (test code = 16 U/L 5-34 353) ALT (SGPT) (BEAKER) (test code = 8 U/L 6-55 347) BASIC METABOLIC [id number] 05:40:00 Test Item Value Reference Range Interpretation Comments SODIUM (BEAKER) 138 meq/L 136-145 (test code = 381) POTASSIUM (BEAKER) 3.9 meq/L 3.5-5.1 (test code = 379) CHLORIDE (BEAKER) 107 meq/L 98-107 (test code = 382) CO2 (BEAKER) (test 23 meq/L 22-29 code = 355) BLOOD UREA NITROGEN 12 mg/dL 7-21 (BEAKER) (test code = 354) CREATININE (BEAKER) 0.59 mg/dL 0.57-1.25 (test code = 358) GLUCOSE RANDOM 90 mg/dL 70-105 (BEAKER) (test code = 652) CALCIUM (BEAKER) 7.8 mg/dL 8.4-10.2 L (test code = 697) EGFR (BEAKER) (test 102 mL/min/1.73 ESTIM ATED GFR IS code = 1092) sq m NOT ACCURATE CREATININE CLEARANCE IN PREDICTING GLOMERULAR FILTRATION RATE . ESTIMATED GFR I S NOT APPLICABLE FOR DIALYSIS PATIEN TS. CBC W/PLT COUNT & AUTO [id number] 05:37:00 Test Item Value Reference Range Interpretation Comments WHITE BLOOD CELL COUNT (BEAKER) 3.9 K/ L 4.0-10.0 L (test code = 775) RED BLOOD CELL COUNT (BEAKER) 3.45 M/ L 4.00-5.00 L (test code = 761) HEMOGLOBIN (BEAKER) (test code = 10.4 GM/DL 12.0-15.0 L 410) HEMATOCRIT (BEAKER) (test code = 32.6 % 36.0-45.0 L 411) MEAN CORPUSCULAR VOLUME (BEAKER) 94.6 fL 82.0-99.0 (test code = 753) MEAN CORPUSCULAR HEMOGLOBIN 30.2 pg 27.0-33.0 (BEAKER) (test code = 751) MEAN CORPUSCULAR HEMOGLOBIN CONC 32.0 GM/DL 32.0-36.0 (BEAKER) (test code = 752) RED CELL DISTRIBUTION WIDTH 12.8 % 10.3-14.2 (BEAKER) (test code = 412) PLATELET COUNT (BEAKER) (test 159 K/CU MM 150-430 code = 756) MEAN PLATELET VOLUME (BEAKER) 7.0 fL 6.5-10.5 (test code = 754) NUCLEATED RED BLOOD CELLS 0 /100 WBC 0-0 (BEAKER) (test code = 413) NEUTROPHILS RELATIVE PERCENT 71 % (BEAKER) (test code = 429) LYMPHOCYTES RELATIVE PERCENT 16 % (BEAKER) (test code = 430) MONOCYTES RELATIVE PERCENT 11 % (BEAKER) (test code = 431) EOSINOPHILS RELATIVE PERCENT 2 % (BEAKER) (test code = 432) BASOPHILS RELATIVE PERCENT 1 % (BEAKER) (test code = 437) NEUTROPHILS ABSOLUTE COUNT 2.75 K/ L 1.80-8.00 (BEAKER) (test code = 670) LYMPHOCYTES ABSOLUTE COUNT 0.61 K/ L 1.48-4.50 L (BEAKER) (test code = 414) MONOCYTES ABSOLUTE COUNT (BEAKER) 0.43 K/ L 0.00-1.30 (test code = 415) EOSINOPHILS ABSOLUTE COUNT 0.09 K/ L 0.00-0.50 (BEAKER) (test code = 416) BASOPHILS ABSOLUTE COUNT (BEAKER) 0.02 K/ L 0.00-0.20 (test code = 417) 0.00PT/[id number] 05:30:00 Test Item Value Reference Range Interpretation Comments PROTIME ([facility]) (test code = 12.8 seconds 11.7-14.7 759) INR ([facility]) (test code = 370) 1.0 <=5.9 PARTIAL THROMBOPLASTIN TIME 26.3 seconds 22.5-36.0 (BEAKER) (test code = 760) RECOMMENDED COUMADIN/WARFARIN INR THERAPY RANGESSTANDARD DOSE: 2.0 - 3.0 Includes: PROPHYLAXIS forvenous thrombosis, systemic embolization; TREATMENT for venous thrombosis and/or pulmonary embolus.HIGH RISK: Target INR is 2.5-3.5 for patients with mechanical heart valves.POCT-GLUCOSE [id number] 22:11:00 Test Item Value Reference Range Interpretation Comments POC-GLUCOSE METER 107 mg/dL 70-[address] [facility] 67[address] ([facility]) (test code = [place] 0885) [id number]
[2020-02-03] MEDS ORDERED: NA CHLORIDE 0.9% 500 ML ONE (10:31)
[2020-02-03] MEDS ORDERED: HEPA 1000U/500MLS 2,000 UNIT/1,000 ML BAG IV ONE (13:04)
[2020-02-03] MEDS ORDERED: HEPARIN 5000 UNIT/ML 1 ML VIAL ONE (13:04)
[2020-02-03] MEDS ORDERED: MIDAZOLAM HCL 2 MG/2 ML INJ ONE (13:05)
[2020-02-03] MEDS ORDERED: FENTANYL CITR 100 MCG/2 ML ONE (13:05)
[2020-02-03] MEDS ORDERED: HEPARIN 10,000 UNIT/10 ML VIAL IV ONE (13:05)
[2020-02-03] MEDS ORDERED: VERAPAMIL HCL 10 MG/4 ML VIAL IV ONE (13:05)
[2020-02-03] MEDS ORDERED: NITROGLYCERIN 100 MCG/ML SYR (for cath lab use only) IV ONE (13:05)
[2020-02-03] MEDS ORDERED: ATROPINE SULF 1 MG/10 ML SYR IV ONE (13:06)
[2020-02-03] MEDS ORDERED: ACETYLCYST 20% 4 ML VIAL IH ONE (13:38)
[2020-02-03] MEDS ORDERED: NA CHLORIDE 0.9% 0 ML IV ONE ×2 (13:43→14:43)
[2020-02-03] MEDS ORDERED: METOPROLOL TARTRATE 5 MG/5 ML INJ IV ONE ×2 (14:14→14:16)
[2020-02-03] MEDS ORDERED: REGADENOSON 0.4 MG/5 ML SYR IV ONE (14:17)
[2020-02-03] MEDS ORDERED: HEPA 1000U/500MLS 1,000 UNIT/500 ML BAG IV ONE (14:24)
[2020-02-03] MEDS ORDERED: ONDANSETRON 4 MG/2 ML VIAL ONE (14:41)
[2020-02-03] MEDS ORDERED: ADENOSINE 6 MG/ 2ML VIAL IV ONE (14:42)
[2020-02-03] MEDS ORDERED: TICAGRELOR 90 MG TABLET PO ONE (14:49)
[2020-02-03] MEDS ORDERED: CLOPIDOGREL 75 MG TABLET ONE (15:12)
[2020-02-03] MEDS ORDERED: ASPIRIN 325 MG TAB ONE (15:12)
[2020-02-03] MEDS ORDERED: PROMETHAZINE INJ 25 MG/ML AMP ONE (15:33)
[2020-02-03 17:51] VITALS: TEMP 96.9
[2020-02-03 18:00] VITALS: O2SAT 98
[2020-02-03 18:35] VITALS: BP 126/70
--- NOTE | 2020-02-03 23:28 | OP ---
Date of Procedure: 02/03/2020 Surgeon: COTY FIGUEROA Procedure Performed: 1.Selective coronary angiogram. 2.Right heart catheterization. 3.Percutaneous coronary intervention of severe mid left anterior descending stenosis using 2.75 x 38 mm Synergy drug-eluting stent. Access: Right radial artery 6-[place] closed with TR band. Complications: None. Bleeding: Less than 50 mL. Anesthesia: Total sedation time was 75 minutes. Description Of Procedure: After risks, benefits, and alternatives were explained, the patient agreed to procedure and signed informed consent, the patient was brought into the cardiac catheterization l aboratory, prepped and draped in usual sterile fashion. Then, accessed right radial artery using a [employer] micropuncture kit and we then took a 5-[place] Lucama catheter into the aortic root, engaged t he left main and the right coronary artery, took standard views, and then proceeded intervention part . We gave systemic heparin to assure ACT level above 250 and then we took an EBU 3.5 guide, 6-[place] in to the aortic root, engaged the left main, and then we took initially the Comet wire into the aortic root and equalized pressure and we used a Comet wire to cross the mid LAD stenosis and the IFR was 0. 89 and FFR was 0.79 and decided to proceed with PCI based on the FFR and IFR numbers. Then, we took a short Runthrough wire across the stenosis and then took a 2.5 x 20 mm NC balloon and pre-dilated th e lesion very well and the lesion was expanded nicely and then we took a 2.75 x 38 mm Synergy drug-el uting stent deployed across the long tubular stenosis with good results, BRITTANY-3 flow, and 0% restenos is. I removed the wire and final injection showed no complications. Then, we removed the guide and the sheath and placed TR band with good hemostasis. Conclusion: Severe mid LAD disease confirmed by IFR and FFR 0.89 and 0.79 and status post PCI using 2.75 x 38 mm Synergy drug-eluting stent. Plan: 1.We will load Brilinta and aspirin. Continue Plavix 75 mg daily. She will get a Plavix load with 300 before she leaves and Lipitor 40 mg daily and aspirin 81 mg. She will take also Eliquis as tripl e therapy for a month and then we will drop the aspirin after that. 2.Discharge home once criteria met and follow up in the office in 4 weeks. /EL Voice ID: [id number] Report ID: [id number]
== END 2020-02-03 18:25 | disposition home or self-care (01) ==
LOC: CCL 10:09
PROVIDERS: ATTEND Internal Medicine
DX: I25.10 Atherosclerotic heart disease of native coronary artery without angina pectoris (principal); I11.0 Hypertensive heart disease with heart failure; I50.30 Unspecified diastolic (congestive) heart failure; Z20.828 Contact with and (suspected) exposure to other viral communicable diseases
CPT/HCPCS: 93005; 36415; 85610; 85347 ×4; 85730; 93456; 92978; 93571; U0002; C1893; C1725; C9600; J0153; J2550; J1644 ×3; J2250; J3010; J2785; J7040; J2405

== ENCOUNTER 2022-04-10 06:00 | Day surgery (SDC) | payer OTHER, BC ==
[2022-04-10] MEDS ORDERED: Ringers Lactate 1,000 ML IV ONE (06:22)
[2022-04-10] MEDS ORDERED: LABETALOL 20 MG/4ML SYRINGE IV ONE (06:26)
[2022-04-10] MEDS ORDERED: NA CHLORIDE 0.9% 1,000 ML ONE (06:38)
[2022-04-10] MEDS ORDERED: CEFAZOLIN SODIUM 1 GM/VIAL ONE (06:38)
[2022-04-10] MEDS ORDERED: propofoL 200 MG/20 ML VIAL IV ONE (07:43)
[2022-04-10] MEDS ORDERED: LIDOCAINE 1% MPF 5 ML VIAL ONE (07:43)
[2022-04-10 10:38] VITALS: BP 148/80; TEMP 97.7; O2SAT 98
[2022-04-10] MEDS ORDERED: HYDROCODONE/APAP 10/325 TAB ONE (11:09)
--- NOTE | 2022-04-10 12:08 | RAD REPORT ---
EXAM DESCRIPTION: RAD - Small Bowel Series - 04/10/2022 11:53 am CLINICAL HISTORY: Status post EGD. Bleeding in stomach. COMPARISON: None. TECHNIQUE: AP labor relations consultant images of the abdomen were obtained. Serial AP images of the abdomen were obtai braulio following oral and IV contrast administration. FINDINGS: Machine Clipper film shows a nonspecific bowel gas pattern. No obstruction or free air. No suspicious calcifica tions. Lumbar fusion hardware is present. Gastric size and muscosal fold pattern are normal. No delay in transit of contrast into the small bow el, with contrast reaching the ascending colon 30 minutes following oral administration. Small bowel is normal in diameter with no muscosal fold thickening or other abnormalities. No intrinsic or extrin sic mass identifiable. Terminal ileum has normal appearance. Transit time to the colon is normal. IMPRESSION: Normal small bowel series.
[2022-04-11 14:31] LABS: Specific Gravity 1.014 (1.005-1.030); Urine Bacteria <20 /HPF (<20); Urine Bilirubin NEGATIVE (Negative); Urine Blood Trace (Negative); Urine Clarity Turbid (Clear); Urine Color Light-Yellow (Yellow); Urine Crystals Unidentified Few /HPF (None Seen); Urine Glucose NEGATIVE (Negative); Urine Mucus 1+ /HPF (None Seen); Urine Protein TRACE (Negative); Urine RBC 21-50 /HPF (None Seen); Urine Urobilinogen Normal (Normal); Urine WBC Clump Rare /HPF (None Seen)
== END 2022-04-10 09:30 | disposition home or self-care (01) ==
LOC: OR 06:00
PROVIDERS: ATTEND Internal Medicine Gastroenterology
PROC: 0DB68ZX Excision of Stomach, Via Natural or Artificial Opening Endoscopic, Diagnostic (ICD-10-PCS; principal; 2022-04-10 07:30)
PROC: 0DB88ZX Excision of Small Intestine, Via Natural or Artificial Opening Endoscopic, Diagnostic (ICD-10-PCS; 2022-04-10 07:30)
DX: D50.9 Iron deficiency anemia, unspecified (principal); K44.9 Diaphragmatic hernia without obstruction or gangrene; K29.71 Gastritis, unspecified, with bleeding; K25.3 Acute gastric ulcer without hemorrhage or perforation; K29.50 Unspecified chronic gastritis without bleeding
CPT/HCPCS: 88312; 88305; 74250; 43239; J2704; J2001; J7120; J7030; J0690

== ENCOUNTER 2023-01-03 10:58 | Emergency (ER) | payer OTHER, BC ==
--- OUTSIDE RECORDS SUMMARY | 2023-01-03 11:05 | XMS REPORT | Continuity of Care Document ---
:1950 Author Organization [facility] t Address [address] [place] [address] [address] [place] [address] Care Team Providers Name Role Phone KACY FORD Primary Care Physician Unavailable Giana Peterson Attending Clinician Unavailable [email or web address] Attending Clinician Unavailable MIGUEL ANGEL NOEL Attending Clinician Unavailable Miguel Angel Noel MD Attending Clinician ROSELYN ESCALANTE Attending Clinician Unavailable ROSELYN ESCALANTE Attending Clinician Unavailable Roselyn Escalante DO Attending Clinician Doctor Unassigned, [place] Attending Clinician Unavailable TATE GUNN Attending Clinician Unavailable TARIQ OLIVO Attending Clinician Unavailable Giana Peterson Admitting Clinician Unavailable [email or web address] Admitting Clinician Unavailable MIGUEL ANGEL NOEL Admitting Clinician Unavailable TARIQ OLIVO Admitting Clinician Unavailable Payers Payer Name Policy Type Policy Effective Date Expiration Date Sour ce Number MEDICARE PART A [id number] 2013 \\T\\ B 00:00:00 BCBS TRADITIONAL [id number] 2016 00:00:00 [employer] Blue 6 [id number] [facility] Shield of [facility] Problems Condition Condition Condition Status Onset Resolution Last Treating Co mments Source Name Details Category Date Date Treatment Clinician Date Headache, Headache, Disease Active [facility] unspecifie unspecifie 4-14 Maryam kes d headache d headache 00:00: Me dical type type 00 Center Osteoarthr Osteoarth Diagnosis Active 2021-08-08 Memoria itis ritis 02:46:18 l Active [place] Diagnosis 08/08/2021 [facility] Primary Primary Problem Active 2021-08-08 Me moria osteoarthr osteoarthr 02:46:18 l itis of itis of [place] right hip right hip Active Problem 08/08/2021 [facility] Abnormal Abnormal Problem Active 2021-08-08 Memoria immunologi immunologi 02:46:18 l eder eder [place] finding in finding in serum serum Active Problem 08/08/2021 [facility] Primary Primary Problem Active 2021-08-08 M emoria osteoarthr osteoarthr 02:46:18 l itis of itis of [place] left hip left hip Active Problem 08/08/2021 [facility] 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) Herm sammie drug drug therapy therapy Active Diagnosis 08/08/2021 [facility] Postmenopa Postmenop Problem Active 2021-08-08 Memoria usal ausal 02:46:18 l Active [place] Problem 08/08/2021 [facility] Encounter Encounter Problem Active 2021-08-08 Memoria for for 02:46:18 l immunizati immunizati Maximiliano rmann on on Active Problem 08/08/2021 [facility] Pain in Pain in Diagnosis Active 2020-10-21 Memoria left hand left hand 02:45:06 l Active [place] Diagnosis 10/21/2020 [facility] Pain in Pain in Diagnosis Active 2020-10-21 Memoria right hand right hand 02:45:06 l Active [place] Diagnosis 10/21/2020 [facility] Heartburn Heartburn Diagnosis Active 2019-07-24 Memoria Active 02:45:19 l Diagnosis [place] 07/24/2019 [facility] Anemia Anemia Diagnosis Active 2019-04-07 Me moria Active 03:45:32 l Diagnosis [place] 04/07/2019 [facility] Pain, Pain, Diagnosis Active 2020-03-01 Mem oria joint, joint, 03:45:53 l multiple multiple Sebastian n sites sites Active Diagnosis 03/01/2020 [facility] Greater Greater Diagnosis Active 2021-08-08 Memoria trochanter trochanter 02:46:18 l ic ic [place] bursitis bursitis of right of right hip hip Active Diagnosis 08/08/2021 [facility] Shortness Shortness Diagnosis Active 2020-05-31 Memoria of breath of breath 02:45:45 l Active [place] Diagnosis 05/31/2020 [facility] Pain in Pain in Diagnosis Active 2020-05-31 Memoria hip hip Active 02:45:45 l Diagnosis Sebastian n 05/31/2020 [facility] Pain in Pain in Diagnosis Active 2020-05-31 Memoria hand hand 02:45:45 l Active [place] Diagnosis 05/31/2020 [facility] Benign Benign Problem Active 2021-08-08 Gordon blake essential essential 02:46:18 l hypertensi hypertensi He rmann on on Active Problem 08/08/2021 [facility] Rheumatoid Rheumatoi Problem Active 2021-08-08 Memoria arthritis d 02:46:18 l with arthritis [place] rheumatoid with factor of rheumatoid multiple factor of sites multiple without sites organ or without systems organ or involvemen systems t involvemen t Active Problem 08/08/2021 [facility] No known No known Disease Unive rs active active ity of problems problems [facility] [place] [facility] Rheumatoid Acute Problem Commo n arthritis rheumatoid Spi rit arthritis - [facility] Iron Fe Problem Common deficiency deficiency Sp dewey anemia anemia - [facility] 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 anthony [facility] [id number] Primary Problem Comm on osteoarthr Spirit itis of - [facility] right knee [facility] [id number] Right Problem Common sciatic [facility] nerve pain [facility] [id number] Asthma, Problem Commo n unspecifie Spirit d asthma - [facility] severity, St unspecifie [facility] d whether Medical complicate Center d, unspecifie d whether persistent [id number] Essential Problem Comm on hypertensi Spirit on [facility] [id number] Rheumatoid Problem Co mmon arthritis [facility] involving - [facility] multiple [facility] unspecifie Medica l d Center rheumatoid factor presence [id number] Abnormal Problem Comm on mammogram [facility] Allergies, Adverse Reactions, Alerts Allergy Allergy Status Severity Reaction(s) Onset Inactive Treating Comm ents Source Name Type Date Date Clinician Iron Iron Active constipation Gordon blake (Ferrous (Ferrous 6-14 l Gluconat Gluconat 00:00: Sebastian shields) cornelius) 00 Sulfur Sulfur Active Info Not Memoria Available 6-14 l 00:00: Remicade Remicade Active severe Memori a headaches 6-14 l 00:00: Hydroxyc Hydroxyc Active nausea with M emoria hloroqui hloroqui Tramadol 6-14 l ne ne 00:00: Sulfate Sulfate 00 Codeine Codeine Active Info Not Memori a Sulfate Sulfate Available 6-14 l 00:00: CODEINE DRUG Active Rash Univers INGREDI 4-23 ity of 00:00: [address] Codeine Propensi Active Other - See " sick as Univers ty to comments 06-16 a dog per ity o f adverse 00:00: patient" [place] reaction 00 Medical s Branch codeine DA Active SV [facility] 06-16 [place] 00:00: [place] 00 [facility] SULPHA DA Active SV RASHES AND [facility] DRUGS VERY SICK TO 06-16 [place] HER STOMACH 00:00: [place] 00 [facility] codeine DA Active SV BAD [facility] RASH,HORRIBL 06-16 [place] Y SICK IN 00:00: [place] HER STOMACH 00 Medic al Center Tramadol Drug Active Nause[facility] Center Codeine Drug Active [facility] Allergy [facility]: [facility] Center Sulfa Drug Active Nause[facility] (Sulfona [facility]ergy [facility]omiting 4[facility]14 [facility] 00:00: Medical Antibiot 00 Center ics) Social History Social Habit Start Date Stop Date Quantity Comments Source History of [facility] - Tobacco Use [facility] Exposure to 2022-07-01 2022-07-11 Not sure University of SARS-CoV-2 00:00:00 10:33:00 [facility] (event) [place] Tobacco use and 2021-01-25 2021-01-25 Smokeless tobacco Un iversity of exposure 00:00:00 00:00:00 non-user [facility] [place] [facility] Alcohol intake 2016-06-07 2016-06-07 [facility]k es 00:00:00 00:00:00 [facility] Sex Ass[birth year] At [birth year] [facility] 00:00:00 00:00:00 Medical Center Smoking Status Start Date Stop Date Source Never Smoker [facility] Medications Ordered Filled Start Stop Current Ordering Indication Dosage Frequency Signature Comments Components Source Medication Medication Date Date Medication? Clinician (SIG) Name Name Muaricio Martínez No 1mL Common (Triamcinol (Triamcinol 8-29 S pirit one) one) 00:00: - [facility] Bupivicaine Bupivicaine No 4mL Common Thayer Thayer 8-29 Spirit 00:00: - [facility] Mauricio Martínez 2023-0 No 1mL Common (Triamcinol (Triamcinol 8-29 S pirit one) one) 00:00: - [facility] 00 [facility] Bupivicaine Bupivicaine 2022-0 No 4mL Common Thayer Thayer 8-29 Spirit 00:00: - [facility] 00 [facility] Bupivicaine Bupivicaine 2022-0 No 2.5mg Common Thayer Thayer 2-13 Spirit 00:00: - [facility] 00 [facility] Kenalog Kenalog 2022-0 No 40mg Common (Triamcinol (Triamcinol 2-13 S pirit one) one) 00:00: - [facility] 00 [facility] Bupivicaine Bupivicaine 2022-0 No 2.5mg Common Thayer Thayer 2-13 Spirit 00:00: - [facility] 00 [facility] Markoalog Kenalog 2022-0 No 40mg Common (Triamcinol (Triamcinol 2-13 S pirit one) one) 00:00: - [facility] 00 [facility] Naropin Naropin 2021-0 No 5mg Common (Ropivacain (Ropivacain 9-20 S pirit e HCl) e HCl) 00:00: - [facility] 00 [facility] Mauricio Kenalog 2021-0 No 40mg Common (Triamcinol (Triamcinol 9-20 S pirit one) one) 00:00: - [facility] 00 [facility] Naropin Naropin 2021-0 No 5mg Common (Ropivacain (Ropivacain 9-20 S pirit e HCl) e HCl) 00:00: - [facility] 00 [facility] Kenalog Kenalog 2021-0 No 40mg Common (Triamcinol (Triamcinol 9-20 S pirit one) one) 00:00: - [facility] 00 [facility] Naropin Naropin 2021-0 No 5mg Common (Ropivacain (Ropivacain 9-20 S pirit e HCl) e HCl) 00:00: - [facility]I 00 [facility] Markoalog Kenalog 2021-0 No 40mg Common (Triamcinol (Triamcinol 9-20 S pirit one) one) 00:00: - [facility] 00 [facility] Naropin Naropin 2-0 No 5mg Common (Ropivacain (Ropivacain 9-20 S pirit e HCl) e HCl) 00:00: - [facility] 00 [facility] Kenalog Kenalog 2021-0 No 40mg Common (Triamcinol (Triamcinol 9-20 S pirit one) one) 00:00: - [facility]I 00 [facility] Naropin Naropin 2-0 No 5mg Common (Ropivacain (Ropivacain 9-20 S pirit e HCl) e HCl) 00:00: - [facility]I 00 [facility] Kenalog Kenalog 2021-0 No 40mg Common (Triamcinol (Triamcinol 9-20 S pirit one) one) 00:00: - [facility] 00 [facility] Naropin Naropin 2-0 No 5mg Common (Ropivacain (Ropivacain 9-20 S pirit e HCl) e HCl) 00:00: - [facility]I 00 [facility] Kenalog Kenalog 2021-0 No 40mg Common (Triamcinol (Triamcinol 9-20 S pirit one) one) 00:00: - [facility]I 00 [facility] Naropin Naropin 2-0 No 5mg Common (Ropivacain (Ropivacain 9-20 S pirit e HCl) e HCl) 00:00: - CHI 00 [facility] Kenalog Kenalog 2021-0 No 40mg Common (Triamcinol (Triamcinol 9-20 S pirit one) one) 00:00: - CHI 00 [facility] Naropin Naropin 2-0 No 5mg Common (Ropivacain (Ropivacain 9-20 S pirit e HCl) e HCl) 00:00: - CHI 00 [facility] Kenalog Kenalog 2-0 No 40mg Common (Triamcinol (Triamcinol 9-20 S pirit one) one) 00:00: - CHI 00 [facility] Naropin Naropin 2-0 No 5mg Common (Ropivacain (Ropivacain 9-20 S pirit e HCl) e HCl) 00:00: - CHI 00 [facility] Kenalog Kenalog No 40mg Common (Triamcinol (Triamcinol 9-20 S pirit one) one) 00:00: - [facility]I 00 [facility] Montelukast Yes Gina 1 tablet Memoria Sodium 6-15 Vo in the l 02:46: evening [place] 18 Ibuprofen 0 Yes Gina TAKE 1 Memoria 6-15 Vo TABLET BY l 02:46: MOUTH [place] 18 TWICE A DAY WITH FOOD OR MILK NEEDED Albuterol Yes Gina as Me moria 6-15 Vo directed l 02:46: [place] 18 Leflunomide Yes Gina 1 tablet Memoria 6-15 Vo l 02:46: [place] 18 Cimzia Yes Gina 1 ml Memor ia 6-15 Vo l 02:46: [place] 18 Ezetimibe Yes Gina 1 tablet Memoria 6-15 Vo l 02:46: [place] Peralta Levocetiriz Yes Gina 1 tablet Memoria ine 6-15 Vo in the l Dihydrochlo 02:46: evening Her courtney ride 18 Gabapentin 0 Yes Gina 1 capsule Memoria 6-15 Vo l 02:46: [place] 18 Vitamin D Yes Gina 1 capsule Memoria (Ergocalcif 6-15 Vo l manav) 02:46: [place] 18 Furosemide 0 Yes Gina 1 tablet Memoria 6-15 Vo l 02:46: [place] 18 Metoprolol 0 Yes Gina 1 tablet Memoria Tartrate 6-15 Vo with food l 02:46: [place] 18 Clopidogrel 0 Yes Gina 1 tablet Memoria Bisulfate 6-15 Vo l 02:46: [place] 18 Pantoprazol 0 Yes Gina 1 tablet Memoria e Sodium 6-15 Vo l 02:46: [place] 18 Melatonin 0 Yes Gina 1 tablet Memoria 6-15 Vo at bedtime l 02:46: as needed [place] 18 Lisinopril Yes Gina 1 tablet Memoria 6-15 Vo l 02:46: [place] 18 Atorvastati Yes Gina 1 tablet Memoria n Calcium 6-15 Vo l 02:46: [place] 18 Eliquis Yes Gina TAKE 1 Me moria 6-15 Vo TABLET BY l 02:46: MOUTH [place] 18 TWICE A DAY Duloxetine Yes Gina TAKE 1 Memoria HCl 6-15 Vo CAPSULE BY l 02:46: MOUTH [place] 18 EVERY DAY FOR 30 DAYS Nitrofurant Yes Gina one Memoria oin-Macrobi 6-09 Vo capsule l d 100 mg 5d 00:00: Sebastian n 00 Duloxetine Yes Vivian 1 capsule M emoria HCl 4-19 Vil[place] l 02:45: Symbicort Yes Vivian 2 puffs Gordon blake 4-19 [place] l 02:45: Omeprazole Yes Vivian 1 capsule M emoria 4-19 [place] l 02:45: Dexamethaso Yes Vivian 1 tab Gordon blake ne 4-19 [place] l 02:45: leflunomide 2020-02 Yes 20mg Take 20 mg Univers 20 mg 2-02 by mouth ity of tablet 15:24: daily. [address] DULoxetine 2020-02 Yes 60mg Take 60 mg U nivers 60 mg 2-02 by mouth ity of capsule 15:24: daily. [address] ibuprofen 2020-02 Yes 800mg Take 800 Uni vers 800 mg 2-02 mg by ity of tablet 15:24: mouth [place] 48 every 6 Medical (six) Branch hours as needed. albuterol 2020-02 Yes 2{puff} Inhale 2 U nivers 90 2-02 Puffs 4 ity of mcg/actuati 15:24: (four[place] inhal[place] 48 times Medical daily. Branch budesonide- 2020-02 Yes 2{puff} Inhale 2 Univers formoteroL 2-02 Puffs 2 ity of 160-4.5 15:24: (two) [place] mcg/actuati 48 times Medical on inhaler daily. Branch Certolizuma 2020-02 Yes inject Univ ers b Pegol 2-02 under the ity of (CIMZIA) 15:24: skin. [place] 400 mg/2 mL 48 Every Medical (200 mg/mL other Branch x 2) SyKt Friday. leflunomide 2020-02 Yes 20mg Take 20 mg Univers 20 mg 2-02 by mouth ity of tablet 15:24: daily. [address] DULoxetine 2020-02 Yes 60mg Take 60 mg U nivers 60 mg 2-02 by mouth ity of capsule 15:24: daily. [address] ibuprofen 2020-02 Yes 800mg Take 800 Uni vers 800 mg 2-02 mg by ity of tablet 15:24: mouth [place] 48 every 6 Medical (six) Branch hours as needed. albuterol 2020-02 Yes 2{puff} Inhale 2 U nivers 90 2-02 Puffs 4 ity of mcg/actuati 15:24: (four) [place] inhaler 48 times Medical daily. Branch budesonide- 2020-02 Yes 2{puff} Inhale 2 Univers formoteroL 2-02 Puffs 2 ity of 160-4.5 15:24: (two) [place] mcg/actuati 48 times Medical on inhaler daily. Branch Certolizuma 2020-02 Yes inject [facility] ers b Pegol 2-02 under the ity of (CIMZIA) 15:24: skin. [place] 400 mg/2 mL 48 Every Medical (200 mg/mL other Branch x 2) SyKt Friday. leflunomide 2020-02 Yes 20mg Take 20 mg Univers 20 mg 2-02 by mouth ity of tablet 15:24: daily. [address] DULoxetine 2020-02 Yes 60mg Take 60 mg U nivers 60 mg 2-02 by mouth ity of capsule 15:24: daily. [address] ibuprofen 2020-02 Yes 800mg Take 800 Uni vers 800 mg 2-02 mg by ity of tablet 15:24: mouth [place] 48 every 6 Medical (six) Branch hours as needed. albuterol 2020-02 Yes 2{puff} Inhale 2 U nivers 90 2-02 Puffs 4 ity of mcg/actuati 15:24: (four) [place] inhaler 48 times Medical daily. Branch budesonide- 2020-02 Yes 2{puff} Inhale 2 Univers formoteroL 2-02 Puffs 2 ity of 160-4.5 15:24: (two) [place] mcg/actuati 48 times Medical on inhaler daily. Branch Certolizuma 2020-02 Yes inject Univ ers b Pegol 2-02 under the ity of (CIMZIA) 15:24: skin. [place] 400 mg/2 mL 48 Every Medical (200 mg/mL other Branch x 2) SyKt Friday. leflunomide 2020-02 Yes 20mg Take 20 mg Univers 20 mg 2-02 by mouth ity of tablet 15:24: daily. [address] Branch DULoxetine 2020-02 Yes 60mg Take 60 mg U nivers 60 mg 2-02 by mouth ity of capsule 15:24: daily. [address] Branch ibuprofen 2020-02 Yes 800mg Take 800 Uni vers 800 mg 2-02 mg by ity of tablet 15:24: mouth [place] [id number] every 6 Medical (six) Branch hours as needed. albuterol 2020-02 Yes 2{puff} Inhale 2 U nivers 90 2-02 Puffs 4 ity of mcg/actuati 15:24: (four) [place] inhaler 48 times Medical daily. Branch budesonide- 2020-02 Yes 2{puff} Inhale 2 Univers formoteroL 2-02 Puffs 2 ity of 160-4.5 15:24: (two) [place] mcg/actuati 48 times Medical on inhaler daily. Branch Certolizuma 2020-02 Yes inject Univ ers b Pegol 2-02 under the ity of (CIMZIA) 15:24: skin. [place] 400 mg/2 mL 48 Every Medical (200 mg/mL other Branch x 2) SyKt Friday. metoprolol 2020-02 Yes 25mg Take 25 mg U nivers succinate 2-02 by mouth ity of XL 25 mg 24 15:24: daily. [place] hr tablet Medical Branch apixaban 2020-02 Yes 2.5mg Take 2.5 Univ ers 2.5 mg 2-02 mg by ity of tablet 15:24: mouth 2 [place] 47 (two) Medical times Branch daily. lisinopriL 2020-02 Yes 10mg Take 10 mg U nivers 10 mg 2-02 by mouth ity of tablet 15:24: daily. [address] Branch clopidogreL 2020-02 Yes 75mg Take 75 mg Univers 75 mg 2-02 by mouth ity of tablet 15:24: daily. [place] [address] Medical Branch atorvastati 2020-02 Yes 40mg Take 40 mg Univers n 40 mg 2-02 by mouth ity of tablet 15:24: at [place] [address] bedtime. Medical Branch ergocalcife 2020-02 Yes [id number] Take Univ ers rol, 2-02 50,000 ity of vitamin D2, 15:24: Units by [place] (VITAMIN D2 47 mouth Medical ORAL) weekly. Branch metoprolol 2020-02 Yes 25mg Take 25 mg U nivers succinate 2-02 by mouth ity of XL 25 mg 24 15:24: daily. [place] hr tablet Medical Branch apixaban 2020-02 Yes 2.5mg Take 2.5 Univ ers 2.5 mg 2-02 mg by ity of tablet 15:24: mouth 2 [place] [address] ([facility]) Medical times [place] daily. lisinopriL 2020-02 Yes 10mg Take 10 mg U nivers 10 mg 2-02 by mouth ity of tablet 15:24: daily. [address] clopidogreL 2020-02 Yes 75mg Take 75 mg Univers 75 mg 2-02 by mouth ity of tablet 15:24: daily. [address] Branch atorvastati 2020-02 Yes 40mg Take 40 mg Univers n 40 mg 2-02 by mouth ity of tablet 15:24: at [place] [address] bedtime. Medical Branch ergocalcife 2020-02 Yes [id number] Take Univ ers rol, 2-02 50,000 ity of vitamin D2, 15:24: Units by [place] (VITAMIN D2 47 mouth Medical ORAL) weekly. Branch metoprolol 2020-02 Yes 25mg Take 25 mg U nivers succinate 2-02 by mouth ity of XL 25 mg 24 15:24: daily. [place] hr tablet 47 Medical Branch apixaban 2020-02 Yes 2.5mg Take 2.5 Univ ers 2.5 mg 2-02 mg by ity of tablet 15:24: mouth 2 [place] [address] (two) Medical times [place] daily. lisinopriL 2020-02 Yes 10mg Take 10 mg U nivers 10 mg 2-02 by mouth ity of tablet 15:24: daily. [address] clopidogreL 2020-02 Yes 75mg Take 75 mg Univers 75 mg 2-02 by mouth ity of tablet 15:24: daily. [address] Branch atorvastati 2020-02 Yes 40mg Take 40 mg Univers n 40 mg 2-02 by mouth ity of tablet 15:24: at [place] [address] bedtime. Medical Branch ergocalcife 2020-02 Yes [id number] Take Univ ers rol, 2-02 50,000 ity of vitamin D2, 15:24: Units by [place] (VITAMIN D2 47 mouth Medical ORAL) weekly. Branch metoprolol 2020-02 Yes 25mg Take 25 mg U nivers succinate 2-02 by mouth ity of XL 25 mg 24 15:24: daily. [facility] s hr [place] [address] Medical Branch apixaban 2020-02 Yes 2.5mg Take 2.5 Univ ers 2.5 mg 2-02 mg by ity of tablet 15:24: mouth 2 [place] [address] (two) Medical times Branch daily. lisinopriL 2020-02 Yes 10mg Take 10 mg U nivers 10 mg 2-02 by mouth ity of tablet 15:24: daily. [address] clopidogreL 2020-02 Yes 75mg Take 75 mg Univers 75 mg 2-02 by mouth ity of tablet 15:24: daily. [address] atorvastati 2020-02 Yes 40mg Take 40 mg Univers n 40 mg 2-02 by mouth ity of tablet 15:24: at [place] [address] bedtime. Medical Branch ergocalcife 2020-02 Yes [id number] Take Univ ers rol, 2-02 50,000 ity of vitamin D2, 15:24: Units by [place] (VITAMIN D2 47 mouth Medical ORAL) weekly. Branch furosemide 2020-02 Yes 20mg Take 20 mg U nivers 20 mg 2-02 by mouth ity of tablet 15:24: daily. [address] pantoprazol 2020-02 Yes 40mg Take 40 mg Univers e 40 mg EC 2-02 by mouth ity o f tablet 15:24: daily. [address] montelukast 2020-02 Yes 10mg Take 10 mg Univers 10 mg 2-02 by mouth ity of tablet 15:24: daily. [address] gabapentin 2020-02 Yes 300mg Take 300 Un christopher 300 mg 2-02 mg by ity of capsule 15:24: mouth [place] [address] daily. [facility] ezetimibe 2020-02 Yes 10mg Take 10 mg Un christopher 10 mg 2-02 by mouth ity of tablet 15:24: daily. [address] furosemide 2020-02 Yes 20mg Take 20 mg U nivers 20 mg 2-02 by mouth ity of tablet 15:24: daily. [address] pantoprazol 2020-02 Yes 40mg Take 40 mg Univers e 40 mg EC 2-02 by mouth ity o f tablet 15:24: daily. [address] montelukast 2020-02 Yes 10mg Take 10 mg Univers 10 mg 2-02 by mouth ity of tablet 15:24: daily. [address] gabapentin 2020-02 Yes 300mg Take 300 Un christopher 300 mg 2-02 mg by ity of capsule 15:24: mouth [place] [address] daily. [facility] ezetimibe 2020-02 Yes 10mg Take 10 mg Un christopher 10 mg 2-02 by mouth ity of tablet 15:24: daily. [address] furosemide 2020-02 Yes 20mg Take 20 mg U nivers 20 mg 2-02 by mouth ity of tablet 15:24: daily. [address] pantoprazol 2020-02 Yes 40mg Take 40 mg Univers e 40 mg EC 2-02 by mouth ity o f tablet 15:24: daily. [address] montelukast 2020-02 Yes 10mg Take 10 mg Univers 10 mg 2-02 by mouth ity of tablet 15:24: daily. [address] gabapentin 2020-02 Yes 300mg Take 300 Un christopher 300 mg 2-02 mg by ity of capsule 15:24: mouth [place] [address] daily. [facility] ezetimibe 2020-02 Yes 10mg Take 10 mg Un christpoher 10 mg 2-02 by mouth ity of tablet 15:24: daily. [address] furosemide 2020-02 Yes 20mg Take 20 mg U nivers 20 mg 2-02 by mouth ity of tablet 15:24: daily. [address] pantoprazol 2020-02 Yes 40mg Take 40 mg Univers e 40 mg EC 2-02 by mouth ity o f tablet 15:24: daily. [address] montelukast 2020-02 Yes 10mg Take 10 mg Univers 10 mg 2-02 by mouth ity of tablet 15:24: daily. [address] gabapentin 2020-02 Yes 300mg Take 300 Un christopher 300 mg 2-02 mg by ity of capsule 15:24: mouth [place] [address] daily. Medical Branch ezetimibe 2020-02 Yes 10mg Take 10 mg Un christopher 10 mg 2-02 by mouth ity of tablet 15:24: daily. [address] Gabapentin 2020-02 Yes Vivian 1 capsule M emoria 2-01 Vil[place] l 03:45: [place] 54 Eliquis 2020-02 Yes Vivian TAKE 1 Memoria 2-01 [place] TABLET BY l 03:45: MOUTH [place] 54 TWICE A DAY Lyrica Yes Gina 1 capsule Memoria 4-07 Vo l 02:45: [place] 45 Lisinopril Yes Gina 1 tablet Memoria 4-07 Vo l 02:45: [place] 45 Aspirin EC Yes Gina 1 tablet Memoria 4-07 Vo l 02:45: [place] 45 Cimzia Yes Gina INJECT 200 Memoria Prefilled 4-07 Vo MG l 02:45: SUBCUTANEO [place] 45 USLY EVERY 2 WEEKS Trimethopri 2019-02 Yes Vivian 1 tablet M emoria m 1-10 [place] l 00:00: [place] Leflunomide 2019-0 Yes Gina 1 tablet Memoria 8-27 Vo l 00:00: [place] 00 Cimzia 2019-0 Yes Vivian 1 ml Memoria Prefilled 6-05 [place] l 00:00: [place] 00 Iron 2019-0 Yes Gina 1 tablet Mem oria 5-30 Vo l 02:45: [place] 19 Omeprazole 2019-0 Yes Gina 1 capsule Memoria 5-30 Vo l 02:45: [place] 19 Promethazin 2019-0 Yes Gina 0.5 tablet Memoria e HCl 5-30 Vo as needed l 02:45: [place] 19 Lisinopril 2019-0 Yes Gina 1 tablet Memoria 5-30 Vo l 02:45: Carter 19 Duloxetine 2019-0 Yes Gina 2 capsules Memoria HCl 2-11 Vo l 00:00: Leflunomide 2018- Yes Gina 1 tablet Mem[facility] 2-16 Vo l 00:00: Rinvoq 2018- Yes Gina 1 tablet M emoria 2-11 Vo l 00:00: Lyrica 0 Yes Gina 1 capsule [facility] 9-18 Vo l 02:45: Orencia Yes Gina 1 ml Gordon blake ClickJect 9-18 Vo l 02:45: PredniSONE Yes Gina 1 tablet [facility] 9-17 Vo l 00:00: omeprazole Yes 20mg QD Take [address] [facility] (PRILOSEC) 4-18 by mouth [facility] 20 MG 18:18: daily. Medical capsule 35 [place] leflunomide Yes 20mg QD Take [address] [facility] (ARAVA) 20 4-18 by mouth [facility] MG tablet 18:18: daily. Medica l [address] [place] predniSONE Yes 5mg QD Take [address] [facility] (DELTASONE) 4-18 by mouth Luke [facility] 5 MG tablet 18:18: daily. Medi eder 35 [place] calcium Yes 1{tbl} QD Take [address] [facility] carbonate-v 4-18 tablet by Nikki es itamin D3 18:18: mouth Medical (OSCAL-D) 35 daily. [place] 500 mg(1,250mg) -200 unit per tablet coenzyme Yes 200mg QD Take [address] Q10 200 mg 4-18 mg by [facility] capsule 18:18: mouth Medical 35 daily. [place] lisinopril Yes 20mg QD Take [address] (PRINIVIL,Z 4-18 by mouth Luke s ESTRIL) 20 18:18: daily. Medic al MG tablet 35 [place] Ferrous Ferrous Yes Ranjan 1 tablet Com mon Sulfate Sulfate [facility] Simvastatin Simvastatin Yes Ranjan 1 tablet Common [place] in the [facility] evening [facility] Leflunomide Leflunomide Yes Ranjan 1 tablet Common [facility] Montelukast Montelukast Yes Ranjan 1 tablet Common Sodium Sodium [facility] Levothyroxi Levothyroxi Yes Ranjan 1 tablet Common ne Sodium ne Sodium Membreno on an Sp dewey empty - [facility] stomach in [facility] Symbicort Symbicort Yes Ranjan 2 puffs Common [facility] Ibuprofen Ibuprofen Yes Ranjan as Com mon Membreno directed [facility] Lyrica Lyrica Yes Ranjan 1 capsule Comm on [facility] Omeprazole Omeprazole Yes Ranjan 1 capsule Common [facility] Lisinopril Lisinopril Yes Ranjan 1 tablet Common [facility] ProAir HFA ProAir HFA Yes Ranjan 2 puffs as Common Membreno needed [facility] Ezetimibe Ezetimibe No Ezetimibe ProAir HFA ProAir HFA No 2{puffs QID ProAir HFA 108 (90 108 (90 _as_nee 108 (90 Base) Base) ded} Base) MCG/ACT MCG/ACT MCG/ACT Lyrica 100 Lyrica 100 No 1{capsu TID Lyrica 100 MG MG le} MG Leflunomide Leflunomide No 1{table QD Leflunomid 20 MG 20 MG t} e 20 MG Metoprolol Metoprolol No Metoprolol Tartrate Tartrate Tartrate Levothyroxi Levothyroxi No Levothyrox ne Sodium ne Sodium ine Sodium Eliquis Eliquis No Eliquis DULoxetine DULoxetine No DULoxetine HCl HCl HCl Pantoprazol Pantoprazol No Pantoprazo e Sodium e Sodium le Sodium Furosemide Furosemide No Furosemide Omeprazole Omeprazole No 1{capsu QD Omeprazole 20 MG 20 MG le} 20 MG Gabapentin Gabapentin No Gabapentin Lisinopril Lisinopril No 1{table QD Lisinopril 20 MG 20 MG t} 20 MG Atorvastati Atorvastati No Atorvastat n Calcium n Calcium in Calcium Montelukast Montelukast No 1{table QD Montelukas Sodium 10 Sodium 10 t} t Sodium MG MG 10 MG Symbicort Symbicort No 2{puffs BID Symbicort 160-4.5 160-4.5 } 160-4.5 MCG/ACT MCG/ACT MCG/ACT Levocetiriz Levocetiriz No Levocetiri ine ine zine Dihydrochlo Dihydrochlo Dihydrochl ride ride oride Clopidogrel Clopidogrel No Clopidogre & Aspirin & Aspirin l & Aspirin Ezetimibe Ezetimibe No Ezetimibe ProAir HFA ProAir HFA No 2{puffs QID ProAir HFA 108 (90 108 (90 _as_nee 108 (90 Base) Base) ded} Base) MCG/ACT MCG/ACT MCG/ACT Lyrica 100 Lyrica 100 No 1{capsu TID Lyrica 100 MG MG le} MG Leflunomide Leflunomide No 1{table QD Leflunomid 20 MG 20 MG t} e 20 MG Metoprolol Metoprolol No Metoprolol Tartrate Tartrate Tartrate Levothyroxi Levothyroxi No Levothyrox ne Sodium ne Sodium ine Sodium Eliquis Eliquis No Eliquis DULoxetine DULoxetine No DULoxetine HCl HCl HCl Pantoprazol Pantoprazol No Pantoprazo e Sodium e Sodium le Sodium Furosemide Furosemide No Furosemide Omeprazole Omeprazole No 1{capsu QD Omeprazole 20 MG 20 MG le} 20 MG Gabapentin Gabapentin No Gabapentin Gabapentin Gabapentin No Gabapentin Symbicort Symbicort No 2{puffs BID Symbicort 160-4.5 160-4.5 } 160-4.5 MCG/ACT MCG/ACT MCG/ACT Lisinopril Lisinopril No 1{table QD Lisinopril 20 MG 20 MG t} 20 MG Montelukast Montelukast No 1{table QD Montelukas Sodium 10 Sodium 10 t} t Sodium MG MG 10 MG Atorvastati Atorvastati No Atorvastat n Calcium n Calcium in Calcium Lyrica 100 Lyrica 100 No 1{capsu TID Lyrica 100 MG MG le} MG ProAir HFA ProAir HFA No 2{puffs QID ProAir HFA 108 (90 108 (90 _as_nee 108 (90 Base) Base) ded} Base) MCG/ACT MCG/ACT MCG/ACT Ezetimibe Ezetimibe No Ezetimibe Furosemide Furosemide No Furosemide Omeprazole Omeprazole No 1{capsu QD Omeprazole 20 MG 20 MG le} 20 MG Pantoprazol Pantoprazol No Pantoprazo e Sodium e Sodium le Sodium Clopidogrel Clopidogrel No Clopidogre & Aspirin & Aspirin l & Aspirin Leflunomide Leflunomide No 1{table QD Leflunomid 20 MG 20 MG t} e 20 MG Levocetiriz Levocetiriz No Levocetiri ine ine zine Dihydrochlo Dihydrochlo Dihydrochl ride ride oride DULoxetine DULoxetine No DULoxetine HCl HCl HCl Eliquis Eliquis No Eliquis Levothyroxi Levothyroxi No Levothyrox ne Sodium ne Sodium ine Sodium Metoprolol Metoprolol No Metoprolol Tartrate Tartrate Tartrate Gabapentin Gabapentin No Gabapentin Symbicort Symbicort No 2{puffs BID Symbicort 160-4.5 160-4.5 } 160-4.5 MCG/ACT MCG/ACT MCG/ACT Lisinopril Lisinopril No 1{table QD Lisinopril 20 MG 20 MG t} 20 MG Montelukast Montelukast No 1{table QD Montelukas Sodium 10 Sodium 10 t} t Sodium MG MG 10 MG Atorvastati Atorvastati No Atorvastat n Calcium n Calcium in Calcium Lyrica 100 Lyrica 100 No 1{capsu TID Lyrica 100 MG MG le} MG ProAir HFA ProAir HFA No 2{puffs QID ProAir HFA 108 (90 108 (90 _as_nee 108 (90 Base) Base) ded} Base) MCG/ACT MCG/ACT MCG/ACT Ezetimibe Ezetimibe No Ezetimibe Furosemide Furosemide No Furosemide Omeprazole Omeprazole No 1{capsu QD Omeprazole 20 MG 20 MG le} 20 MG Pantoprazol Pantoprazol No Pantoprazo e Sodium e Sodium le Sodium Clopidogrel Clopidogrel No Clopidogre & Aspirin & Aspirin l & Aspirin Leflunomide Leflunomide No 1{table QD Leflunomid 20 MG 20 MG t} e 20 MG Levocetiriz Levocetiriz No Levocetiri ine ine zine Dihydrochlo Dihydrochlo Dihydrochl ride ride oride DULoxetine DULoxetine No DULoxetine HCl HCl HCl Eliquis Eliquis No Eliquis Levothyroxi Levothyroxi No Levothyrox ne Sodium ne Sodium ine Sodium Metoprolol Metoprolol No Metoprolol Tartrate Tartrate Tartrate Montelukast Montelukast No 1{table QD Montelukas Sodium 10 Sodium 10 t} t Sodium MG MG 10 MG Leflunomide Leflunomide No 1{table QD Leflunomid 20 MG 20 MG t} e 20 MG Omeprazole Omeprazole No 1{capsu QD Omeprazole 20 MG 20 MG le} 20 MG Symbicort Symbicort No 2{puffs BID Symbicort 160-4.5 160-4.5 } 160-4.5 MCG/ACT MCG/ACT MCG/ACT Lyrica 100 Lyrica 100 No 1{capsu TID Lyrica 100 MG MG le} MG ProAir HFA ProAir HFA No 2{puffs QID ProAir HFA 108 (90 108 (90 _as_nee 108 (90 Base) Base) ded} Base) MCG/ACT MCG/ACT MCG/ACT Lisinopril Lisinopril No 1{table QD Lisinopril 20 MG 20 MG t} 20 MG Montelukast Montelukast No 1{table QD Montelukas Sodium 10 Sodium 10 t} t Sodium MG MG 10 MG Leflunomide Leflunomide No 1{table QD Leflunomid 20 MG 20 MG t} e 20 MG Omeprazole Omeprazole No 1{capsu QD Omeprazole 20 MG 20 MG le} 20 MG Symbicort Symbicort No 2{puffs BID Symbicort 160-4.5 160-4.5 } 160-4.5 MCG/ACT MCG/ACT MCG/ACT Lyrica 100 Lyrica 100 No 1{capsu TID Lyrica 100 MG MG le} MG ProAir HFA ProAir HFA No 2{puffs QID ProAir HFA 108 (90 108 (90 _as_nee 108 (90 Base) Base) ded} Base) MCG/ACT MCG/ACT MCG/ACT Lisinopril Lisinopril No 1{table QD Lisinopril 20 MG 20 MG t} 20 MG Montelukast Montelukast No 1{table QD Montelukas Sodium 10 Sodium 10 t} t Sodium MG MG 10 MG Leflunomide Leflunomide No 1{table QD Leflunomid 20 MG 20 MG t} e 20 MG Omeprazole Omeprazole No 1{capsu QD Omeprazole 20 MG 20 MG le} 20 MG Symbicort Symbicort No 2{puffs BID Symbicort 160-4.5 160-4.5 } 160-4.5 MCG/ACT MCG/ACT MCG/ACT Lyrica 100 Lyrica 100 No 1{capsu TID Lyrica 100 MG MG le} MG ProAir HFA ProAir HFA No 2{puffs QID ProAir HFA 108 (90 108 (90 _as_nee 108 (90 Base) Base) ded} Base) MCG/ACT MCG/ACT MCG/ACT Lisinopril Lisinopril No 1{table QD Lisinopril 20 MG 20 MG t} 20 MG Montelukast Montelukast No 1{table QD Montelukas Sodium 10 Sodium 10 t} t Sodium MG MG 10 MG Leflunomide Leflunomide No 1{table QD Leflunomid 20 MG 20 MG t} e 20 MG Omeprazole Omeprazole No 1{capsu QD Omeprazole 20 MG 20 MG le} 20 MG Symbicort Symbicort No 2{puffs BID Symbicort 160-4.5 160-4.5 } 160-4.5 MCG/ACT MCG/ACT MCG/ACT Lyrica 100 Lyrica 100 No 1{capsu TID Lyrica 100 MG MG le} MG ProAir HFA ProAir HFA No 2{puffs QID ProAir HFA 108 (90 108 (90 _as_nee 108 (90 Base) Base) ded} Base) MCG/ACT MCG/ACT MCG/ACT Lisinopril Lisinopril No 1{table QD Lisinopril 20 MG 20 MG t} 20 MG Lyrica 100 Lyrica 100 No 1{capsu TID Lyrica 100 MG MG le} MG Montelukast Montelukast No 1{table QD Montelukas Sodium 10 Sodium 10 t} t Sodium MG MG 10 MG Leflunomide Leflunomide No 1{table QD Leflunomid 20 MG 20 MG t} e 20 MG Lisinopril Lisinopril No 1{table QD Lisinopril 20 MG 20 MG t} 20 MG ProAir HFA ProAir HFA No 2{puffs QID ProAir HFA 108 (90 108 (90 _as_nee 108 (90 Base) Base) ded} Base) MCG/ACT MCG/ACT MCG/ACT Symbicort Symbicort No 2{puffs BID Symbicort 160-4.5 160-4.5 } 160-4.5 MCG/ACT MCG/ACT MCG/ACT Omeprazole Omeprazole No 1{capsu QD Omeprazole 20 MG 20 MG le} 20 MG Lisinopril Lisinopril No 1{table QD Lisinopril 20 MG 20 MG t} 20 MG Atorvastati Atorvastati No Atorvastat n Calcium n Calcium in Calcium Montelukast Montelukast No 1{table QD Montelukas Sodium 10 Sodium 10 t} t Sodium MG MG 10 MG Symbicort Symbicort No 2{puffs BID Symbicort 160-4.5 160-4.5 } 160-4.5 MCG/ACT MCG/ACT MCG/ACT Levocetiriz Levocetiriz No Levocetiri ine ine zine Dihydrochlo Dihydrochlo Dihydrochl ride ride oride Clopidogrel Clopidogrel No Clopidogre & Aspirin & Aspirin l & Aspirin Vital Signs Vital Name Observation Time Observation Value Comments Source height 2022-04-08 11:00:00 65 [in_i] [facility] weight 2022-04-08 11:00:00 181 [lb_av] [facility] temperature 2022-04-08 11:00:00 98.4 [degF] [facility] bmi 2022-04-08 11:00:00 30.12 kg/m2 [facility] blood pressure 2022-04-08 11:00:00 138 mm[Hg] [facility] blood pressure 2022-04-08 11:00:00 86 mm[Hg] [facility] height 2022-03-26 09:00:00 65 [in_i] [facility] weight 2022-03-26 09:00:00 181.1 [lb_av] [facility] temperature 2022-03-26 09:00:00 98.1 [degF] [facility] bmi 2022-03-26 09:00:00 30.13 kg/m2 [facility] blood pressure 2022-03-26 09:00:00 133 mm[Hg] [facility] - systolic [facility] blood pressure 2022-03-26 09:00:00 81 mm[Hg] [facility] height 2022-01-15 14:30:00 65 [in_i] [facility] weight 2022-01-15 14:30:00 182.6 [lb_av] [facility] temperature 2022-01-15 14:30:00 97.0 [degF] [facility] bmi 2022-01-15 14:30:00 30.38 kg/m2 [facility] blood pressure 2022-01-15 14:30:00 133 mm[Hg] [facility] blood pressure 2022-01-15 14:30:00 79 mm[Hg] [facility] height 2021-11-13 15:00:00 65 [in_i] [facility] weight 2021-11-13 15:00:00 182.6 [lb_av] Common [facility] temperature 2021-11-13 15:00:00 97.6 [degF] [facility] bmi 2021-11-13 15:00:00 30.38 kg/m2 [facility] blood pressure 2021-11-13 15:00:00 136 mm[Hg] [facility] blood pressure 2021-11-13 15:00:00 78 mm[Hg] [facility] Systolic blood 2021-03-29 15:32:00 137 mm[Hg] Univer sity of pressure [facility] Diastolic blood 2021-03-29 15:32:00 81 mm[Hg] Unive rsity of pressure [facility] Heart rate 2021-03-29 15:32:00 89 /min [facility] Respiratory rate 2021-03-29 15:32:00 19 /min [facility] Body height 2021-03-29 15:32:00 166.4 cm [facility] Body weight 2021-03-29 15:32:00 80.105 kg [facility] BMI 2021-03-29 15:32:00 28.94 kg/m2 [facility] Oxygen saturation in 2021-03-29 15:32:00 97 /min [facility] Arterial blood by [facility] Pulse oximetry Branch Weight 2021-08-07 16:10:00 [facility] Height 2021-08-07 16:10:00 [facility] [place] Heart Rate 2021-08-07 16:10:00 [facility] [place] Diastolic (mm Hg) 2021-08-07 16:10:00 Mem [facility] [place] Systolic (mm Hg) 2021-08-07 16:10:00 Gordon [facility] [place] Weight 2021-04-24 19:40:00 [facility] Height 2021-04-24 19:40:00 [facility] [place] Heart Rate 2021-04-24 19:40:00 [facility] [place] Diastolic (mm Hg) 2021-04-24 19:40:00 Mem orial [facility] Systolic (mm Hg) 2021-04-24 19:40:00 Gordon [facility] [place] Weight 2021-01-23 19:30:00 [facility] [place] Height 2021-01-23 19:30:00 [facility] [place] Temperature Oral (F) 2021-01-23 19:30:00 97.8 F [facility] [place] Heart Rate 2021-01-23 19:30:00 [facility] [place] Diastolic (mm Hg) 2021-01-23 19:30:00 Mem orial [facility] Systolic (mm Hg) 2021-01-23 19:30:00 Gordon rial [place] Weight 2020-05-30 15:30:00 [facility] [place] Height 2020-05-30 15:30:00 [facility] [place] Heart Rate 2020-05-30 15:30:00 [facility] Diastolic (mm Hg) 2020-05-30 15:30:00 Mem orial [place] Systolic (mm Hg) 2020-05-30 15:30:00 Gordon rial [place] Weight 2020-02-29 17:20:00 [facility] Height 2020-02-29 17:20:00 [facility] [place] Heart Rate 2020-02-29 17:20:00 [facility] [place] Diastolic (mm Hg) 2020-02-29 17:20:00 Mem orial [facility] Systolic (mm Hg) 2020-02-29 17:20:00 Gordon rial [facility] Weight 2019-12-28 15:30:00 [facility] Height 2019-12-28 15:30:00 [facility] [place] Heart Rate 2019-12-28 15:30:00 [facility] [place] Diastolic (mm Hg) 2019-12-28 15:30:00 Mem orial [facility] Systolic (mm Hg) 2019-12-28 15:30:00 Gordon rial [place] Weight 2019-04-06 17:00:00 [facility] Height 2019-04-06 17:00:00 [facility] Heart Rate 2019-04-06 17:00:00 [facility] [place] Diastolic (mm Hg) 2019-04-06 17:00:00 Mem orial [place] Systolic (mm Hg) 2019-04-06 17:00:00 Gordon rial [facility] Weight 2019-02-02 17:00:00 [facility] Height 2019-02-02 17:00:00 [facility] [place] Heart Rate 2019-02-02 17:00:00 [facility] Diastolic (mm Hg) 2019-02-02 17:00:00 Mem orial [place] Systolic (mm Hg) 2019-02-02 17:00:00 Gordon rial [facility] Weight 2018-11-10 15:15:00 [facility] [place] Height 2018-11-10 15:15:00 [facility] Heart Rate 2018-11-10 15:15:00 [facility] Diastolic (mm Hg) 2018-11-10 15:15:00 Mem orial [facility] Systolic (mm Hg) 2018-11-10 15:15:00 Gordon rial [place] Procedures Procedure Date / Time Performing Clinician Source Performed MR LUMBAR SPINE WO 2022-07-11 16:17:23 Miguel Angel Noel [facility] NOTICE OF PRIVACY 2022-07-11 15:34:05 Doctor Unassigned, No Univ [facility] PRACTICES Name Medical Branch CONSENT/REFUSAL FOR 2022-07-11 15:32:57 Doctor Unassigned, No Un [facility] DIAGNOSIS AND TREATMENT Name Medical Branch ASSIGNMENT OF BENEFITS 2022-07-11 15:32:38 Doctor Unassigned, No [facility] Medical Branch AUTHORIZATION TO RELEASE 2021-03-29 06:01:00 Doctor Unassigned, No [facility] PHI TO [facility] Name Medical Branch [id number] 2020-06-19 00:00:00 RANRO [facility] [place] Encounters Start End Encounter Admission Attending Care Care Encounter Source Date/Time Date/Time Type Type Clinicians Facility Department ID 2023-01-03 Outpatient [id number] Memoria 11:01:30 [id number] [place] [id number] 2022-03-26 Outpatient STLMLC STLMLC [id number] Common 10:10:00 [id number] [facility] 2021-11-13 Outpatient STLMLC STLMLC [id number] Common 14:53:00 [id number] [facility] 2021-11-12 Outpatient STLMLC STLMLC [id number] Common 15:16:01 [facility] 2021-03-21 Outpatient STLMLC STLMLC [id number] Common 13:12:03 [id number] [facility] 2021-03-21 Outpatient STLMLC STLMLC [id number] Common 13:06:13 [id number] [facility] 2020-12-24 Emergency [facility] [id number] Univers 14:55:32 [facility] 2020-06-16 Inpatient LESLY PetersonDAMASO MED [id number] [facility] 19:26:00 Nioti 60 [facility] 2022-12-24 2022-12-24 Outpatient [id number] PRIV PRIV [id number] [facility] 00:00:00 00:00:00 diyala_S [id number] Medic al 2022-12-23 2022-12-23 Outpatient [id number] PRIV PRIV [id number] [facility] 00:00:00 00:00:00 diyala_S [id number] Medic al 2022-07-11 2022-07-11 [facility] [id number] Univers 10:33:54 23:59:00 MIGUEL ANGEL ity [facility] 2022-07-11 2022-07-11 [facility] [id number] Univers 10:33:54 23:59:00 Encounter Miguel Angel Rondon EMMONAK [id number] ity [facility] [id number] [facility] [id number] [facility] 804 Branch 2022-04-08 2022-04-08 OFFICE STLMLC STLMLC [id number] Co mmon 00:00:00 00:00:00 VISIT [facility] ESTAB PT - CHI LEVEL 4 [facility] 2022-04-03 2022-04-03 (TEL) STLMLC STLMLC [id number] Co mmon 00:00:00 00:00:00 Spirit [facility] 2022-03-27 2022-03-27 (TEL) STLMLC STLMLC [id number] Co mmon 00:00:00 00:00:00 [facility] - [facility] 2022-03-26 2022-03-26 OFFICE STLMLC STLMLC [id number] Co mmon 00:00:00 00:00:00 VISIT [facility] ESTAB PT - CHI LEVEL 4 [facility] 2022-01-15 2022-01-15 OFFICE STLMLC STLMLC [id number] Co mmon 00:00:00 00:00:00 VISIT [facility] ESTAB PT - CHI LEVEL 4 [facility] 2021-11-15 2021-11-15 (TEL) STLMLC STLMLC [id number] Co mmon 00:00:00 00:00:00 Spirit [facility] 2021-11-13 2021-11-13 OFFICE STLMLC STLMLC [id number] Co mmon 00:00:00 00:00:00 VISIT NEW Spir it PT LEVEL 4 - [facility] 2021-08-16 2021-08-16 Outpatient R ROSELYN ESCALANTE [facility] [id number] Univers 10:30:00 10:30:00 ROSELYN ESCALANTE i ty of [facility] 2021-08-16 2021-08-16 Outpatient R ROSELYN ESCALANTE [facility] 10 [id number] Univers 10:30:00 10:30:00 ROSELYN ESCALANTE i ty of [facility] 2021-08-07 2021-08-07 Outpatient PRL - PRL - [id number] eClinic 11:10:00 11:10:00 Rheumatol [facility]Works ogy y [facility] 2021-07-30 2021-07-30 Outpatient SEBLE FISHERU - [id number] eClinic 22:49:00 22:49:00 Rheumatol Rheumatolog alWorks ogy y [facility] 2021-04-24 2021-04-24 Outpatient PRL - PRL - [id number] eClinic 14:40:00 14:40:00 Rheumatol Rheumatolog alWorks ogy y [facility] 2021-03-29 2021-03-29 Outpatient R ROSELYN ESCALANTE [facility] 10 [id number] Univers 10:00:00 10:17:13 ROSELYN ESCALANTE i ty [facility] 2021-03-29 2021-03-29 Office Petar [facility] [id number] Univers 10:00:00 10:17:13 Visit Roselyn ARELLANO [id number] i ty [facility] [id number] Graciela s PROFESSIO [id number] Va dical NAL 085 [facility] 2021-03-29 2021-03-29 Outpatient R ROSELYN ESCALANTE [facility] [id number] Univers 10:00:00 10:17:13 ROSELYN ESCALANTE i ty [facility] 2021-03-29 2021-03-29 Orders Doctor LOWE [id number] Univers 00:00:00 00:00:00 Only Unassigned, NATAN [id number] ity of [place] [facility] [id number] Ish as [id number] [address] 2021-02-26 2021-02-26 Outpatient PRL - PRL - [id number] eClinic 15:20:00 15:20:00 Rheumatol [facility]umatolog [facility]Works ogy y [facility] 2021-01-25 2021-01-25 Outpatient R ROSELYN ESCALANTE [facility] 10 [id number] Univers 15:00:00 15:00:00 ROSELYN ESCALANTE i ty [facility] 2021-01-25 2021-01-25 Outpatient R ROSELYN ESCALANTE [facility] 10 [id number] Univers 15:00:00 15:00:00 ROSELYN ESCALANTE i ty [facility] 2021-01-25 2021-01-25 Office Petar [facility] [id number] Univers 14:15:45 14:45:45 Visit Roselyn ARELLANO [id number] i ty [facility] [id number] [place] [id number] [place] [id number] [facility] 2021-01-25 2021-01-25 Orders Doctor MYNOR [id number] Univers 00:00:00 00:00:00 Only Unassigned, NATAN [id number] ity of [place] [facility] [id number] Ish as [id number] [address] 2021-01-24 2021-01-24 Outpatient PRL - PRL - [id number] eClinic 14:51:00 14:51:00 Rheumatol [facility]Works ogy y [facility] 2021-01-23 2021-01-23 Outpatient PRL - PRL - [id number] eClinic 13:30:00 13:30:00 Rheumatol [facility]Works ogy y [facility] 2020-11-13 2020-11-13 Orders Doctor MYNOR [id number] Univers 00:00:00 00:00:00 Only Unassigned, NATAN [id number] [facility] [id number] Ish as [id number] [address] 2020-07-14 2020-07-14 Outpatient SEBLE - SEBLE - [id number] eClinic 10:35:00 10:35:00 Rheumatol [facility] ogy y [facility] 2020-06-28 2020-06-28 Outpatient PRL - PRL - [id number] eClinic 10:50:00 10:50:00 Rheumatol [facility] ogy y [facility] 2020-06-15 2020-06-15 Outpatient Moira GUNN, [facility] [id number] [facility] 12:15:00 12:15:00 TATE itfrances [facility] 2020-05-30 2020-05-30 Outpatient PRL - PRL - [id number] eClinic 10:30:00 10:30:00 Rheumatol [facility]umatolog [facility]Works ogy y [facility] 2020-04-04 2020-04-04 Outpatient PRL - PRL - [id number] eClinic 10:31:00 10:31:00 Rheumatol [facility]umatolog [facility]Works ogy y [facility] 2020-02-29 2020-02-29 Outpatient PRL - PRL - [id number] eClinic 11:20:00 11:20:00 Rheumatol [facility] ogy y [facility] 2020-01-04 2020-01-04 Outpatient SEBLE - SEBLE - [id number] eClinic 13:26:00 13:26:00 Rheumatol [facility]Works ogy y [facility] 2019-12-28 2019-12-28 Outpatient PRL - PRL - [id number] eClinic 09:30:00 09:30:00 Rheumatol [facility]umatolog [facility]Works ogy y [facility] 2019-11-22 2019-11-22 Outpatient SEBLE - SEBLE - [id number] eClinic 14:05:00 14:05:00 Rheumatol Rheumatolog alWorks ogy y [facility] 2019-07-23 2019-07-23 Outpatient SEBLE - SEBLE - [id number] eClinic 12:58:00 12:58:00 Rheumatol Rheumatolog alWorks ogy y [facility] 2019-07-23 2019-07-23 Outpatient SEBLE - SEBLE - [id number] eClinic 11:30:00 11:30:00 Rheumatol Rheumatolog alWorks [facility]gy y [facility] 2019-04-06 2019-04-06 Outpatient PRL - PRL - [id number] eClinic 11:00:00 11:00:00 Rheumatol Rheumatolog alWorks ogy y [facility] 2019-02-02 2019-02-02 Outpatient SEBLE - SEBLE - [id number] eClinic 12:07:00 12:07:00 Rheumatol Rheumatolog alWorks ogy y [facility] 2019-02-02 2019-02-02 Outpatient PRL - PRL - [id number] eClinic 11:00:00 11:00:00 Rheumatol Rheumatolog alWorks ogy y [facility] 2018-11-20 2018-11-20 Outpatient SEBLE - SEBLE - [id number] eClinic 09:07:00 09:07:00 Rheumatol Rheumatolog alWorks ogy y [facility] 2018-11-11 2018-11-11 Outpatient SEBLE - SEBLE - [id number] eClinic 11:31:00 11:31:00 Rheumatol Rheumatolog alWorks ogy y [facility] 2018-11-10 2018-11-10 Outpatient PRL - PRL - [id number] eClinic 10:15:00 10:15:00 Rheumatol Rheumatolog alWorks ogy y [facility] 2018-09-30 2018-09-30 [id number] Common 14:00:00 14:00:00 [facility] Results Test Description Test Time Test Comments Results Result Comments Source TRANSFERRRIN 2020-06-20 07:16:00 Test Item Value Reference Range Interpretation Comme nts TRANSFERRRIN (test code = 289 mg/dL 192-364 Pe rformed At: [facility] TRANSF) [address] [id number] Sanjai MD Ph:80 [phone] VITAMIN [id number] 07:16:00 Test Item Value Reference Range Interpretation Comments VITAMIN B12 (test code = VITB12) 453 pg/mL 239-931 N FOLIC ACID BY [id number] 07:16:00 Test Item Value Reference Range Interpretation Comments FOLIC ACID BY BLAKE 9.8 ng/mL REFERENCE VALUES: (test code = FOLR) NORMAL: 2 .76 - >20 ng/ML DEFICIENT: 1.04 - 2.79 ng/ML [id number] 07:16:00 Test Item Value Reference Range Interpretation Comments FERRITIN (test code = TAY) 15.0 NG/ML 11.1-264 N BASIC METABOLIC [id number] 04:29:00 Test Item Value Reference Range Interpretation Comments SODIUM (test code = 135 MMOL/L 137-145 L NA) POTASSIUM (test code = 3.6 MMOL/L 3.5-5.1 N K) CHLORIDE (test code = 99 MMOL/L 98-107 N CL) CARBON DIOXIDE (test 30 MMOL/L 22-30 N code = CO2) GLUCOSE (test code = 109 MG/DL 74-106 H GLU) BLOOD UREA NITROGEN 25 MG/DL 7-17 H (test code = BUN) GLOMERULAR FILTRATION 40 Report ing units: RATE (test code = GFR) ml/mi n/1.73 m2 (Modified MDRD Formula)Referen ce Range: > or = 6 0 ml/min/1.73 m2 CREATININE (test code 1.30 MG/DL 0.52-1.04 H = CREAT) CALCIUM (test code = 8.6 MG/DL 8.4-10.2 N CA) CBC W/AUTO [id number] 04:18:00 Test Item Value Reference Range Interpretation Comments WHITE BLOOD CELL (test code = 4.0 K/MM3 3.8-9.8 N WBC) RED BLOOD CELL (test code = 3.79 M/MM3 3.58-4.97 RBC) HEMOGLOBIN (test code = HGB) 9.5 G/DL 11.2-14.9 L HEMATOCRIT (test code = HCT) 32.8 % 33.2-43.5 L MEAN CELL VOLUME (test code = 87 fL 80.7-99.1 N MCV) MEAN CELL HGB (test code = MCH) 25.1 pg 27.0-34.1 L MEAN CELL HGB CONCETRATION 29.0 % 32.2-35.7 L (test code = MCHC) RED CELL DISTRIBUTION WIDTH 15.2 % 12.1-15.2 N (test code = RDW) PLATELET COUNT (test code = 273 K/MM3 129-368 N PLT) MEAN PLATELET VOLUME (test code 10.8 fl 7.4-10.4 H = MPV) NEUTROPHIL % (test code = NT%) 46.5 % 43-75 N IMMATURE GRANULOCYTE % (test 0.0 % 0.0-2.0 N code = IG%) LYMPHOCYTE % (test code = LY%) 33.6 % 14-44 N MONOCYTE % (test code = MO%) 15.8 % 4-13 H EOSINOPHIL % (test code = EO%) 3.8 % 0-6 N BASOPHIL % (test code = BA%) 0.3 % 0-2 N NUCLEATED RBC % (test code = 0.0 % 0-1.0 N NRBC%) NEUTROPHIL # (test code = NT#) 1.86 K/mm3 2.0-7.6 L IMMATURE GRANULOCYTE # (test 0.00 x10 3/uL 0-0.03 N code = IG#) LYMPHOCYTE # (test code = LY#) 1.34 K/mm3 1.0-3.8 N MONOCYTE # (test code = MO#) 0.63 K/mm3 0.1-0.8 N EOSINOPHIL # (test code = EO#) 0.15 K/mm3 0.0-0.2 N BASOPHIL # (test code = BA#) 0.01 K/mm3 0.0-0.2 N NUCLEATED RBC # (test code = 0.00 K/mm3 0.0-0.1 N NRBC#) DIFFERENTIAL [id number] 04:18:00 Test Item Value Reference Range Interpretation Comments RBC MORPHOLOGY REQUIRED (test code = RBCM) PLATELET ESTIMATE (test code = PLTEST) ADEQUATE PLATELET MORPHOLOGY (test code = NORMAL PLTMORPH) CBC W/AUTO [id number] 04:18:00 Test Item Value Reference Range Interpretation Comments WHITE BLOOD CELL (test code = 4.0 K/MM3 3.8-9.8 N WBC) RED BLOOD CELL (test code = 3.79 M/MM3 3.58-4.97 RBC) HEMOGLOBIN (test code = HGB) 9.5 G/DL 11.2-14.9 L HEMATOCRIT (test code = HCT) 32.8 % 33.2-43.5 L MEAN CELL VOLUME (test code = 87 fL 80.7-99.1 N MCV) MEAN CELL HGB (test code = MCH) 25.1 pg 27.0-34.1 L MEAN CELL HGB CONCETRATION 29.0 % 32.2-35.7 L (test code = MCHC) RED CELL DISTRIBUTION WIDTH 15.2 % 12.1-15.2 N (test code = RDW) PLATELET COUNT (test code = 273 K/MM3 129-368 N PLT) MEAN PLATELET VOLUME (test code 10.8 fl 7.4-10.4 H = MPV) NEUTROPHIL % (test code = NT%) 46.5 % 43-75 N IMMATURE GRANULOCYTE % (test 0.0 % 0.0-2.0 N code = IG%) LYMPHOCYTE % (test code = LY%) 33.6 % 14-44 N MONOCYTE % (test code = MO%) 15.8 % 4-13 H EOSINOPHIL % (test code = EO%) 3.8 % 0-6 N BASOPHIL % (test code = BA%) 0.3 % 0-2 N NUCLEATED RBC % (test code = 0.0 % 0-1.0 N NRBC%) NEUTROPHIL # (test code = NT#) 1.86 K/mm3 2.0-7.6 L IMMATURE GRANULOCYTE # (test 0.00 x10 3/uL 0-0.03 N code = IG#) LYMPHOCYTE # (test code = LY#) 1.34 K/mm3 1.0-3.8 N MONOCYTE # (test code = MO#) 0.63 K/mm3 0.1-0.8 N EOSINOPHIL # (test code = EO#) 0.15 K/mm3 0.0-0.2 N BASOPHIL # (test code = BA#) 0.01 K/mm3 0.0-0.2 N NUCLEATED RBC # (test code = 0.00 K/mm3 0.0-0.1 N NRBC#) DIFFERENTIAL [id number] 04:18:00 Test Item Value Reference Range Interpretation Comments RBC MORPHOLOGY REQUIRED (test code = RBCM) PLATELET ESTIMATE (test code = PLTEST) ADEQUATE PLATELET MORPHOLOGY (test code = NORMAL PLTMORPH) COVID 19 Asymptomatic IH [id number] 09:07:00 Test Item Value Reference Range Interpretation Comments COVID 19 NEGATIVE Negative "Negative resul ts from Asymptomatic IH AG patients with symptom (test code = onset beyondfiv e days, COVNONPUIAG) should be treat ed as presumptive, andconfirmation with a molecular assay , if necessary forpa tient management may be performed. Nega tive results do notr ule out COVID-19 and sh ould not be used as the sole basisfor treatm ent or patient managem ent decisions, includinginfect ion control decisio ns. Negative result s should beconsidered in the context of a pa tients recent exposure s,history, and the presenc e of clinical signs and symptomsconsist ent with COVID-19.This t est detects both vi able andnon-viable S ARS-CoV and SARS CoV-2. Test performance dep endson the amount of virus (antigen) in the sample." CBC W/AUTO [id number] 06:26:00 Test Item Value Reference Range Interpretation Comments WHITE BLOOD CELL (test code = 6.4 K/MM3 3.8-9.8 N WBC) RED BLOOD CELL (test code = 4.53 M/MM3 3.58-4.97 RBC) HEMOGLOBIN (test code = HGB) 11.2 G/DL 11.2-14.9 N HEMATOCRIT (test code = HCT) 39.8 % 33.2-43.5 MEAN CELL VOLUME (test code = 88 fL 80.7-99.1 N MCV) MEAN CELL HGB (test code = MCH) 24.7 pg 27.0-34.1 L MEAN CELL HGB CONCETRATION 28.1 % 32.2-35.7 L (test code = MCHC) RED CELL DISTRIBUTION WIDTH 15.2 % 12.1-15.2 N (test code = RDW) PLATELET COUNT (test code = 259 K/MM3 129-368 N PLT) MEAN PLATELET VOLUME (test code 11.3 fl 7.4-10.4 H = MPV) NEUTROPHIL % (test code = NT%) 58.7 % 43-75 N IMMATURE GRANULOCYTE % (test 0.5 % 0.0-2.0 N code = IG%) LYMPHOCYTE % (test code = LY%) 25.9 % 14-44 N MONOCYTE % (test code = MO%) 11.8 % 4-13 N EOSINOPHIL % (test code = EO%) 2.8 % 0-6 N BASOPHIL % (test code = BA%) 0.3 % 0-2 N NUCLEATED RBC % (test code = 0.0 % 0-1.0 N NRBC%) NEUTROPHIL # (test code = NT#) 3.74 K/mm3 2.0-7.6 N IMMATURE GRANULOCYTE # (test 0.03 x10 3/uL 0-0.03 N code = IG#) LYMPHOCYTE # (test code = LY#) 1.65 K/mm3 1.0-3.8 N MONOCYTE # (test code = MO#) 0.75 K/mm3 0.1-0.8 N EOSINOPHIL # (test code = EO#) 0.18 K/mm3 0.0-0.2 N BASOPHIL # (test code = BA#) 0.02 K/mm3 0.0-0.2 N NUCLEATED RBC # (test code = 0.00 K/mm3 0.0-0.1 N NRBC#) DIFFERENTIAL [id number] 06:26:00 Test Item Value Reference Range Interpretation Comments RBC MORPHOLOGY REQUIRED (test code = RBCM) PLATELET ESTIMATE (test code = PLTEST) ADEQUATE PLATELET MORPHOLOGY (test code = NORMAL PLTMORPH) CBC W/AUTO [id number] 06:26:00 Test Item Value Reference Range Interpretation Comments WHITE BLOOD CELL (test code = 6.4 K/MM3 3.8-9.8 N WBC) RED BLOOD CELL (test code = 4.53 M/MM3 3.58-4.97 RBC) HEMOGLOBIN (test code = HGB) 11.2 G/DL 11.2-14.9 N HEMATOCRIT (test code = HCT) 39.8 % 33.2-43.5 MEAN CELL VOLUME (test code = 88 fL 80.7-99.1 N MCV) MEAN CELL HGB (test code = MCH) 24.7 pg 27.0-34.1 L MEAN CELL HGB CONCETRATION 28.1 % 32.2-35.7 L (test code = MCHC) RED CELL DISTRIBUTION WIDTH 15.2 % 12.1-15.2 N (test code = RDW) PLATELET COUNT (test code = 259 K/MM3 129-368 N PLT) MEAN PLATELET VOLUME (test code 11.3 fl 7.4-10.4 H = MPV) NEUTROPHIL % (test code = NT%) 58.7 % 43-75 N IMMATURE GRANULOCYTE % (test 0.5 % 0.0-2.0 N code = IG%) LYMPHOCYTE % (test code = LY%) 25.9 % 14-44 N MONOCYTE % (test code = MO%) 11.8 % 4-13 N EOSINOPHIL % (test code = EO%) 2.8 % 0-6 N BASOPHIL % (test code = BA%) 0.3 % 0-2 N NUCLEATED RBC % (test code = 0.0 % 0-1.0 N NRBC%) NEUTROPHIL # (test code = NT#) 3.74 K/mm3 2.0-7.6 N IMMATURE GRANULOCYTE # (test 0.03 x10 3/uL 0-0.03 N code = IG#) LYMPHOCYTE # (test code = LY#) 1.65 K/mm3 1.0-3.8 N MONOCYTE # (test code = MO#) 0.75 K/mm3 0.1-0.8 N EOSINOPHIL # (test code = EO#) 0.18 K/mm3 0.0-0.2 N BASOPHIL # (test code = BA#) 0.02 K/mm3 0.0-0.2 N NUCLEATED RBC # (test code = 0.00 K/mm3 0.0-0.1 N NRBC#) DIFFERENTIAL [id number] 06:26:00 Test Item Value Reference Range Interpretation Comments RBC MORPHOLOGY REQUIRED (test code = RBCM) PLATELET ESTIMATE (test code = PLTEST) ADEQUATE PLATELET MORPHOLOGY (test code = NORMAL PLTMORPH) BASIC METABOLIC [id number] 06:25:00 Test Item Value Reference Range Interpretation Comments SODIUM (test code = 134 MMOL/L 137-145 L NA) POTASSIUM (test code = 3.4 MMOL/L 3.5-5.1 L K) CHLORIDE (test code = 97 MMOL/L 98-107 L CL) CARBON DIOXIDE (test 29 MMOL/L 22-30 N code = CO2) ANION GAP (test code = 11 MMOL/L 14-24 L GAP) GLUCOSE (test code = 100 MG/DL 74-106 N GLU) BLOOD UREA NITROGEN 24 MG/DL 7-17 H (test code = BUN) GLOMERULAR FILTRATION > 60 Report ing units: RATE (test code = GFR) ml/mi n/1.73 m2 (Modified MDRD Formula)Referen ce Range: > or = 6 0 ml/min/1.73 m2 CREATININE (test code 0.90 MG/DL 0.52-1.04 N = CREAT) CALCIUM (test code = 8.9 MG/DL 8.4-10.2 N CA) CBC W/AUTO [id number] 06:30:00 Test Item Value Reference Range Interpretation Comments WHITE BLOOD CELL (test code = 4.4 K/MM3 3.8-9.8 N WBC) RED BLOOD CELL (test code = 3.83 M/MM3 3.58-4.97 RBC) HEMOGLOBIN (test code = HGB) 9.8 G/DL 11.2-14.9 L HEMATOCRIT (test code = HCT) 32.9 % 33.2-43.5 L MEAN CELL VOLUME (test code = 86 fL 80.7-99.1 N MCV) MEAN CELL HGB (test code = MCH) 25.6 pg 27.0-34.1 L MEAN CELL HGB CONCETRATION 29.8 % 32.2-35.7 L (test code = MCHC) RED CELL DISTRIBUTION WIDTH 15.1 % 12.1-15.2 N (test code = RDW) PLATELET COUNT (test code = 267 K/MM3 129-368 PLT) MEAN PLATELET VOLUME (test code 11.0 fl 7.4-10.4 H = MPV) NEUTROPHIL % (test code = NT%) 42.2 % 43-75 L IMMATURE GRANULOCYTE % (test 0.2 % 0.0-2.0 N code = IG%) LYMPHOCYTE % (test code = LY%) 37.4 % 14-44 N MONOCYTE % (test code = MO%) 15.0 % 4-13 H EOSINOPHIL % (test code = EO%) 5.0 % 0-6 N BASOPHIL % (test code = BA%) 0.2 % 0-2 N NUCLEATED RBC % (test code = 0.0 % 0-1.0 N NRBC%) NEUTROPHIL # (test code = NT#) 1.85 K/mm3 2.0-7.6 L IMMATURE GRANULOCYTE # (test 0.01 x10 3/uL 0-0.03 N code = IG#) LYMPHOCYTE # (test code = LY#) 1.64 K/mm3 1.0-3.8 N MONOCYTE # (test code = MO#) 0.66 K/mm3 0.1-0.8 N EOSINOPHIL # (test code = EO#) 0.22 K/mm3 0.0-0.2 H BASOPHIL # (test code = BA#) 0.01 K/mm3 0.0-0.2 N NUCLEATED RBC # (test code = 0.00 K/mm3 0.0-0.1 N NRBC#) HGB [id number] 20:52:00 Test Item Value Reference Range Interpretation Comments HEMOGLOBIN (test code = HGB) 9.4 G/DL 11.2-14.9 L HEMATOCRIT (test code = HCT) 32.7 % 33.2-43.5 L BASIC METABOLIC [id number] 08:53:00 Test Item Value Reference Range Interpretation Comments SODIUM (test code = 141 MMOL/L 137-145 N NA) POTASSIUM (test code = 4.3 MMOL/L 3.5-5.1 N K) CHLORIDE (test code = 102 MMOL/L 98-107 N CL) CARBON DIOXIDE (test 35 MMOL/L 22-30 H code = CO2) ANION GAP (test code = 8 MMOL/L 14-24 L GAP) GLUCOSE (test code = 102 MG/DL 74-106 GLU) BLOOD UREA NITROGEN 31 MG/DL 7-17 H (test code = BUN) GLOMERULAR FILTRATION > 60 Report ing units: RATE (test code = GFR) ml/mi n/1.73 m2 (Modified MDRD Formula)Referen ce Range: > or = 6 0 ml/min/1.73 m2 CREATININE (test code 0.90 MG/DL 0.52-1.04 N = CREAT) CALCIUM (test code = 8.6 MG/DL 8.4-10.2 N CA) HGB [id number] 08:40:00 Test Item Value Reference Range Interpretation Comments HEMOGLOBIN (test code = HGB) 7.6 G/DL 11.2-14.9 L HEMATOCRIT (test code = HCT) 26.5 % 33.2-43.5 L - XR CHEST [id number] 07:45:00 [facility] 1950 Sex: F PatientName: RANGEL VALDIVIA Unit No: [id number] EXAMS: CPT CODE: [id number] XR CHEST 1V [id number] EXAMINATION: - XR CHEST 1V. LOCATION: H39. HISTORY: Fatigue. COMPARISON: None. TECHNIQUE: Single AP view of the chest was obtained. FINDINGS: The heart is normal in size. 4 mm calcified right lower lobe granuloma is present. The left lung is clear. No acute osseous abnormality is identified. IMPRESSION: No acute cardiopulmonary abnormality. at 0745 Reported and signed by: Samra Duckworth MD CC: Dinesh Pineda MD Technologist: Philippe Dang, RT(R) Transcrpt Date/Tm/Trnsp: 06/17/2020 (0745) [email or web address] Orig Print D/T: S: 06/17/2020 (0748) [facility] NAME: RANGEL VALDIVIA [address] PHYS: [id number] - Dinesh Pineda MD [address] [place] [address] : 1950 AGE: 69 SEX: F LOC: Z.432 A PHONE #: [phone] EXAM DATE: 06/17/2020TATUS: ADM IN FAX #: [phone] RADIOLOGY NO: PAGE 1 Signed ReportURINALYSIS [id number] 07:18:00 Test Item Value Reference Range Interpretation Comments UA COLOR (test code = YELLOW YELLOW COLU) UA APPEARANCE (test code CLEAR CLEAR = APPU) UA GLUCOSE DIPSTICK (test NORMAL MG/DL NORMAL code = DGLUU) UA BILIRUBIN DIPSTICK NEGATIVE MG/DL NEGATIVE (test code = BILU) UA KETONE DIPSTICK (test NEGATIVE MG/DL NEGATIVE code = KETU) UA SPECIFIC GRAVITY (test 1.020 1.003-1.030 N code = SGU) UA BLOOD DIPSTICK (test 25 Hardik/mm3 NEGATIVE A code = KEVIN) UA PH DIPSTICK (test code 5.0 5.0-9.0 N = MILADY) UA PROTEIN DIPSTICK (test NEGATIVE MG/DL NEGATIVE code = PROU) UA UROBILINIOGEN DIPSTICK NORMAL MG/DL NORMAL (test code = URO) UA NITRITE DIPSTICK (test POSITIVE NEGATIVE A code = MADELIN) UA LEUKOCYTE ESTERASE 500 /mm3 NEGATIVE A DIPSTICK (test code = LEUU) UA CULTURE NEEDED? (test YES,WBC>10 & EPI<25 Culture Chk code = UACULT) Criteria SOURCE OF URINE: CLEAN CATCHUA [id number] 07:18:00 Test Item Value Reference Range Interpretation Comments UA RBC (test code = RBCU) 3-5 RBC/HPF 0-3 A UA WBC (test code = XWBCU) 30-40 WBC/HPF 0-5 A UA EPITHELIAL CELLS (test code FEW EPI/HPF FEW = EPIU) UA BACTERIA (test code = XBACU) MANY NONE A UA MUCUS (test code = MUCU) SLIGHT #/LPF NONE SOURCE OF URINE: CLEAN CATCHURINALYSIS [id number] 07:10:00 Test Item Value Reference Range Interpretation Comments UA COLOR (test code = COLU) YELLOW YELLOW UA APPEARANCE (test code = CLEAR CLEAR APPU) UA GLUCOSE DIPSTICK (test code NORMAL MG/DL NORMAL = DGLUU) UA BILIRUBIN DIPSTICK (test NEGATIVE MG/DL NEGATIVE code = BILU) UA KETONE DIPSTICK (test code NEGATIVE MG/DL NEGATIVE = KETU) UA SPECIFIC GRAVITY (test code 1.020 1.003-1.030 N = SGU) UA BLOOD DIPSTICK (test code = 25 Hardik/mm3 NEGATIVE A KEVIN) UA PH DIPSTICK (test code = 5.0 5.0-9.0 N MILADY) UA PROTEIN DIPSTICK (test code NEGATIVE MG/DL NEGATIVE = PROU) UA UROBILINIOGEN DIPSTICK NORMAL MG/DL NORMAL (test code = URO) UA NITRITE DIPSTICK (test code POSITIVE NEGATIVE A = MADELIN) UA LEUKOCYTE ESTERASE DIPSTICK 500 /mm3 NEGATIVE A (test code = LEUU) UA CULTURE NEEDED? (test code Criteria Culture Chk = UACULT) SOURCE OF URINE: CLEAN CATCHUA [id number] 07:10:00 Test Item Value Reference Range Interpretation Comments UA RBC (test code = RBCU) RBC/HPF 0-3 UA WBC (test code = XWBCU) WBC/HPF 0-5 UA EPITHELIAL CELLS (test code = EPI/HPF FEW EPIU) UA BACTERIA (test code = XBACU) NONE SOURCE OF URINE: CLEAN CATCHURINALYSIS [id number] 07:10:00 Test Item Value Reference Range Interpretation Comments UA COLOR (test code = COLU) YELLOW YELLOW UA APPEARANCE (test code = CLEAR CLEAR APPU) UA GLUCOSE DIPSTICK (test code NORMAL MG/DL NORMAL = DGLUU) UA BILIRUBIN DIPSTICK (test NEGATIVE MG/DL NEGATIVE code = BILU) UA KETONE DIPSTICK (test code NEGATIVE MG/DL NEGATIVE = KETU) UA SPECIFIC GRAVITY (test code 1.020 1.003-1.030 N = SGU) UA BLOOD DIPSTICK (test code = 25 Hardik/mm3 NEGATIVE A KEVIN) UA PH DIPSTICK (test code = 5.0 5.0-9.0 N MILADY) UA PROTEIN DIPSTICK (test code NEGATIVE MG/DL NEGATIVE = PROU) UA UROBILINIOGEN DIPSTICK NORMAL MG/DL NORMAL (test code = URO) UA NITRITE DIPSTICK (test code POSITIVE NEGATIVE A = MADELIN) UA LEUKOCYTE ESTERASE DIPSTICK 500 /mm3 NEGATIVE A (test code = LEUU) UA CULTURE NEEDED? (test code Criteria Culture Chk = UACULT) SOURCE OF URINE: CLEAN CATCHUA [id number] 07:10:00 Test Item Value Reference Range Interpretation Comments UA RBC (test code = RBCU) RBC/HPF 0-3 UA WBC (test code = XWBCU) WBC/HPF 0-5 UA EPITHELIAL CELLS (test code = EPI/HPF FEW EPIU) UA BACTERIA (test code = XBACU) NONE SOURCE OF URINE: CLEAN [id number] 05:59:00 Test Item Value Reference Range Interpretation Comments MAGNESIUM (test code = MAG) 2.3 MG/DL 1.6-2.3 N PROTHROMBIN [id number] 05:47:00 Test Item Value Reference Range Interpretation Comments PROTHROMBIN TIME PATIENT 12.7 9.5-12.7 N (test code = PTP) INTERNATIONAL NORMAL RATIO 1.1 0.86-1.14 N T he INR is to be used (test code = INR) only for m onitoring oral anticoagulantth erapy. INDICATION INR VALUE ------- ------- -----1. Prophylaxis, de ep venous thrombos is, including high risk surgery. 2.0 - 3.0 2. Prophylaxis, de ep venous thrombos is, hip surgery, treatm ent for deep venous thr ombosis or pulmonary prevention of s ystemic embolism in pat ients with valvular h eart disease, atrial fibrillation, t issue heart valve, or acute myocardial infa rction. 2.0 - 3.0 3. Mechanical pros thesis heart valves, recurrent syste blu embolism. 3.0 - 4.5 Comments to [employer]: ASAPGLYCOSYLATED HEMOGLOBIN [id number] 04:56:00 Test Item Value Reference Range Interpretation Comments GLYCOSYLATED 5.4 % 4.8-5.9 N Any condition t hat HEMOGLOBIN (HA1C) shortens e rythocyte (test code = survival or dec reasesmean GLYHGB) erythrocyte age (e.g., recovery from a cute blood loss,hemolytic anemia) will falsely lo wer HGBA1c resultsregardle ss of the method used. HG BA1c results from [facility] HbSS, HbCC, and HbSc must be interpreted with cautiongiven th e pathological pr ocesses, including anemia,increase d red cell turnover, trans fusion requirements, thatadversely i mpact HGBA1c as a mar ker of long-term glycemiccontrol . Alternative for ms of testing such as fructosaminesho uld be considered for these patients. MEAN BLOOD GLUCOSE 108 MG/DL 70-110 N (test code = MBG) [id number] 04:33:00 Test Item Value Reference Range Interpretation Comments TRANSFERRRIN (test code = TRANSF) mg/dl 200-370 VITAMIN [id number] 04:33:00 Test Item Value Reference Range Interpretation Comments VITAMIN B12 (test code = VITB12) 453 pg/mL 239-931 N FOLIC ACID BY [id number] 04:33:00 Test Item Value Reference Range Interpretation Comments FOLIC ACID BY BLAKE 9.8 ng/mL REFERENCE VALUES: (test code = FOLR) NORMAL: 2 .76 - >20 ng/ML DEFICIENT: 1.04 - 2.79 ng/ML [id number] 04:33:00 Test Item Value Reference Range Interpretation Comments FERRITIN (test code = TAY) 15.0 NG/ML 11.1-264 N [id number] 04:02:00 Test Item Value Reference Range Interpretation Comments TRANSFERRRIN (test code = TRANSF) mg/dl 200-370 VITAMIN [id number] 04:02:00 Test Item Value Reference Range Interpretation Comments VITAMIN B12 (test code = VITB12) pg/mL 239-931 FOLIC ACID BY [id number] 04:02:00 Test Item Value Reference Range Interpretation Comments FOLIC ACID BY BLAKE (test code = FOLR) ng/mL [id number] 04:02:00 Test Item Value Reference Range Interpretation Comments FERRITIN (test code = TAY) 15.0 NG/ML 11.1-264 N [id number] 03:37:00 Test Item Value Reference Range Interpretation Comments TROPONIN-I (test code = TROPI) < 0.012 NG/ML 0.012-0.033 L RETICULOCYTE [id number] 03:37:00 Test Item Value Reference Range Interpretation Comments RETICULOCYTE COUNT (test code = RETICT) 1.3 % 0.5-1.5 N LIPID PROFILE (CORONARY RISK)2020-06-17 03:36:00 Test Item Value Reference Range Interpretation Comments TRIGLYCERIDES (test 96 MG/DL TRIGLYCE RIDES code = TRIG) REFERENCE RANGE:Normal: < 150 mg/dLBorderline High: 150-199 mg/dLHi gh: 200-499 mg/dLVe ry High: >=500 mg/ dL CHOLESTEROL (test code 90 MG/DL <200 = CHOL) HDL CHOLESTEROL (test 41 MG/DL 40-59 N code = HDL) LIPOPROTEIN LDL (test 36 MG/DL 0-99 N OPTIM AL.........<100 code = LDL) mg/dLNEAR OPTIMAL/ABOVE OPTIMAL........ .100-12 9 mg/dL BORDERL INE HIGH.........13 0-159 mg/dL HIGH.........16 0-189 mg/dL VERY HIGH.........>/ = 190 mg/dL FE W/TOTAL IRON BINDING CAP.2020-06-17 03:35:00 Test Item Value Reference Range Interpretation Comments SERUM IRON (test code = IRON) 12 MCG/DL 37-170 L TOTAL IRON BINDING CAPACITY (test 356 MCG/DL 265-497 N code = TIBC) IRON SATURATION (test code = 3 % 12-57 L FESAT) LIPID PROFILE (CORONARY RISK)2020-06-17 03:24:00 Test Item Value Reference Range Interpretation Comments TRIGLYCERIDES (test 96 MG/DL TRIGLYCE RIDES code = TRIG) REFERENCE RANGE:Normal: < 150 mg/dLBorderline High: 150-199 mg/dLHi gh: 200-499 mg/dLVe ry High: >=500 mg/ dL CHOLESTEROL (test code 90 MG/DL <200 = CHOL) HDL CHOLESTEROL (test 41 MG/DL 40-59 N code = HDL) LIPOPROTEIN LDL (test MG/DL 0-99 code = LDL) FE W/TOTAL IRON BINDING CAP.2020-06-17 03:24:00 Test Item Value Reference Range Interpretation Comments SERUM IRON (test code = IRON) 12 MCG/DL 37-170 L TOTAL IRON BINDING CAPACITY (test MCG/DL 265-497 code = TIBC) IRON SATURATION (test code = FESAT) % 12-57 NT PRO-BRAIN NATRIURETIC [id number] 00:44:00 Test Item Value Reference Range Interpretation Comments NT PRO-BRAIN NATRIURETIC PEPTI 165.0 pg/mL 0-125 H (test code = PROBNP) GLUCOSE BEDSIDE [id number] 23:58:00 Test Item Value Reference Range Interpretation Comments GLUCOSE BEDSIDE TESTING (test code 115 MG/DL 60-99 H = GLUBED) COMPREHENSIVE METABOLIC [id number] 22:52:00 Test Item Value Reference Range Interpretation Comments SODIUM (test code 139 MMOL/L 137-145 N = NA) POTASSIUM (test 3.0 MMOL/L 3.5-5.1 L code = K) CHLORIDE (test 101 MMOL/L 98-107 N code = CL) CARBON DIOXIDE 31 MMOL/L 22-30 H (test code = CO2) GLUCOSE (test 155 MG/DL 74-106 H code = GLU) BLOOD UREA 28 MG/DL 7-17 H NITROGEN (test code = BUN) GLOMERULAR > 60 Reporting units : FILTRATION RATE ml/min/1.73 m2 (Modified (test code = GFR) MDRD Formu la)Reference Range: > or = 6 0 ml/min/1.73 m2 CREATININE (test 0.90 MG/DL 0.52-1.04 N code = CREAT) TOTAL PROTEIN 6.1 G/DL 6.3-8.2 L [facility] Clinical Diagnostic (test code = has made us nancy re of PROT) newinformation regarding the potential i nterference ofEltrombopag ( a bone marrow stimulan t used to treatthrombocyt onmenia and aplastic anemia ) with specific assays on the Vitros 5600 of which Total Protein is one of thoseassays per formed in our lab.Interfe rence testing perform ed at [facility] determined that Eltrombopag does interfere with Vitros Total Protein asfollowsEltrom bopag Interference fo r Vitros Product Total Protein:======= Eltrombopag Max Observed Av g. BiasConcentrati on Concentration Concentration== ==== 2.5 mg/dl 6.0 g/dl +0.41 +0.34 3.5 mg/dl 6.0 g /dl +0.50 +0.45 5 mg/dl 6 .0 g/dl +0.73 +0.65 2.5 mg/dl 8.0 g/dl +0.44 +0.4 1 3.5 mg/dl 8.0 g/dl +0.55 +0.52 5 mg/dl 8.0 g/dl +0.86 +0.77 ALBUMIN (test 3.3 G/DL 3.5-5.0 L code = ALB) CALCIUM (test 8.1 MG/DL 8.4-10.2 L code = CA) BILIRUBIN TOTAL 0.4 MG/DL 0.2-1.3 N Eltrombopag Interference (test code = for Vitros Prod uct TBil, BILT) BuBc: Assa y Eltrombopag Aylin lyte/ Max Observed Avg. B ias Concentration C oncentration Concentration== ====TBil 7mg/dl TBil/ 1. 2mg/dl +0.23mg.dl +0.2 0mg/dlBuBc 3.5mg/dl Bu/0.8 mg/dl +0.25mg/dl +0.2 4mg/dlBuBc 7 mg/dl Bu/14.2mg /dl +0.38mg/dl +0.2 5mg/dlBuBc 5mg/dl Bc/0mg/d l +0.25mg/dl +0.15mg/dlBuBc 3.5mg/dl Bc/2.8mg/dl +0. 25mg/dl +0.23mg/dl SGOT/AST (test 34 UNITS/L 14-36 N code = AST) SGPT/ALT (test 14 UNITS/L <35 code = ALT) ALKALINE 145 UNITS/L 38-126 H PHOSPHATASE (test code = ALKP) [id number] 22:52:00 Test Item Value Reference Range Interpretation Comments TROPONIN-I (test code = TROPI) < 0.012 NG/ML 0.012-0.033 L COMPREHENSIVE METABOLIC [id number] 22:31:00 Test Item Value Reference Range Interpretation Comments SODIUM (test code 139 MMOL/L 137-145 N = NA) POTASSIUM (test 3.0 MMOL/L 3.5-5.1 L code = K) CHLORIDE (test 101 MMOL/L 98-107 N code = CL) CARBON DIOXIDE 31 MMOL/L 22-30 H (test code = CO2) GLUCOSE (test 155 MG/DL 74-106 H code = GLU) BLOOD UREA 28 MG/DL 7-17 H NITROGEN (test code = BUN) GLOMERULAR > 60 Reporting units : FILTRATION RATE ml/min/1.73 m2 (Modified (test code = GFR) MDRD Formu la)Reference Range: > or = 6 0 ml/min/1.73 m2 CREATININE (test 0.90 MG/DL 0.52-1.04 N code = CREAT) TOTAL PROTEIN 6.1 G/DL 6.3-8.2 L [facility] Clinical Diagnostic (test code = has made us nancy re of PROT) newinformation regarding the potential i nterference ofEltrombopag ( a bone marrow stimulan t used to treatthrombocyt onmenia and aplastic anemia ) with specific assays on the Vitros 5600 of which Total Protein is one of thoseassays per formed in our lab.Interfe rence testing perform ed at [facility] determined that Eltrombopag does interfere with Vitros Total Protein asfollowsEltrom bopag Interference fo r Vitros Product Total Protein:======= Eltrombopag Max Observed Av g. BiasConcentrati on Concentration Concentration== ==== 2.5 mg/dl 6.0 g/dl +0.41 +0.34 3.5 mg/dl 6.0 g /dl +0.50 +0.45 5 mg/dl 6 .0 g/dl +0.73 +0.65 2.5 mg/dl 8.0 g/dl +0.44 +0.4 1 3.5 mg/dl 8.0 g/dl +0.55 +0.52 5 mg/dl 8.0 g/dl +0.86 +0.77 ALBUMIN (test 3.3 G/DL 3.5-5.0 L code = ALB) CALCIUM (test 8.1 MG/DL 8.4-10.2 L code = CA) BILIRUBIN TOTAL 0.4 MG/DL 0.2-1.3 N Eltrombopag Interference (test code = for Vitros Prod uct TBil, BILT) BuBc: Assa y Eltrombopag Aylin lyte/ Max Observed Avg. B ias Concentration C oncentration Concentration== ====TBil 7mg/dl TBil/ 1. 2mg/dl +0.23mg.dl +0.2 0mg/dlBuBc 3.5mg/dl Bu/0.8 mg/dl +0.25mg/dl +0.2 4mg/dlBuBc 7 mg/dl Bu/14.2mg /dl +0.38mg/dl +0.2 5mg/dlBuBc 5mg/dl Bc/0mg/d l +0.25mg/dl +0.15mg/dlBuBc 3.5mg/dl Bc/2.8mg/dl +0. 25mg/dl +0.23mg/dl SGOT/AST (test 34 UNITS/L 14-36 N code = AST) SGPT/ALT (test 14 UNITS/L <35 code = ALT) ALKALINE 145 UNITS/L 38-126 H PHOSPHATASE (test code = ALKP) [id number] 22:31:00 Test Item Value Reference Range Interpretation Comments TROPONIN-I (test code = TROPI) NG/ML 0.0-0.045 CBC W/AUTO [id number] 22:15:00 Test Item Value Reference Range Interpretation Comments WHITE BLOOD CELL (test code = 4.7 K/MM3 3.8-9.8 N WBC) RED BLOOD CELL (test code = 3.10 M/MM3 3.58-4.97 L RBC) HEMOGLOBIN (test code = HGB) 7.8 G/DL 11.2-14.9 L HEMATOCRIT (test code = HCT) 26.7 % 33.2-43.5 L MEAN CELL VOLUME (test code = 86 fL 80.7-99.1 N MCV) MEAN CELL HGB (test code = MCH) 25.2 pg 27.0-34.1 L MEAN CELL HGB CONCETRATION 29.2 % 32.2-35.7 L (test code = MCHC) RED CELL DISTRIBUTION WIDTH 14.9 % 12.1-15.2 N (test code = RDW) PLATELET COUNT (test code = 220 K/MM3 129-368 N PLT) MEAN PLATELET VOLUME (test code 10.9 fl 7.4-10.4 H = MPV) NEUTROPHIL % (test code = NT%) 51.4 % 43-75 N IMMATURE GRANULOCYTE % (test 0.2 % 0.0-2.0 N code = IG%) LYMPHOCYTE % (test code = LY%) 29.3 % 14-44 N MONOCYTE % (test code = MO%) 15.5 % 4-13 H EOSINOPHIL % (test code = EO%) 3.4 % 0-6 N BASOPHIL % (test code = BA%) 0.2 % 0-2 N NUCLEATED RBC % (test code = 0.0 % 0-1.0 N NRBC%) NEUTROPHIL # (test code = NT#) 2.42 K/mm3 2.0-7.6 N IMMATURE GRANULOCYTE # (test 0.01 x10 3/uL 0-0.03 N code = IG#) LYMPHOCYTE # (test code = LY#) 1.38 K/mm3 1.0-3.8 N MONOCYTE # (test code = MO#) 0.73 K/mm3 0.1-0.8 N EOSINOPHIL # (test code = EO#) 0.16 K/mm3 0.0-0.2 N BASOPHIL # (test code = BA#) 0.01 K/mm3 0.0-0.2 N NUCLEATED RBC # (test code = 0.00 K/mm3 0.0-0.1 N NRBC#) CSF CULTURE + GRAM [id number] 08:55:00 Test Item Value Reference Range Interpretation Comments CULTURE (BEAKER) (test No growth code = 1095) GRAM STAIN RESULT No White blood cells (BEAKER) (test code = seen 1123) GRAM STAIN RESULT No organisms seen (BEAKER) (test code = 13490) HSV 1/2 PCR, [id number] 13:55:00 Test Item Value Reference Range Interpretation [...] and its performance characteristics determined by the [facility]ology Department, Sectionof Molecular Pathology. It has not been cleared or approved by the U.S. Food and Drug Administration(FDA), as FDA approval is not required for clinical use of the test. Validation was done as requiredby the Clinical Laboratory Amendments of 1988.CBC W/PLT COUNT & AUTO [id number] 05:40:00 Test Item Value Reference Range Interpretation [...] 0.00-0.20 (test code = 417) 0.00BASI METABOLIC [id number] 05:15:00 Test Item Value Reference Range Interpretation [...] PATIEN TS. CBC W/PLT COUNT & AUTO [id number] 10:46:00 Test Item Value Reference Range Interpretation [...] (test code = Normal 762) BASIC METABOLIC [id number] 05:41:00 Test Item Value Reference Range Interpretation [...] FOR DIALYSIS PATIEN TS. CSF CELL COUNT [id number] 17:59:00 Test Item Value Reference Range Interpretation [...] NUMBER CSF (BEAKER) (test 1 code = 4598) GLUCOSE, [id number] 17:10:00 Test Item Value Reference Range Interpretation Comments GLUCOSE CSF (BEAKER) (test code = 55 mg/dL 40-70 406) PROTEIN, [id number] 17:10:00 Test Item Value Reference Range Interpretation Comments PROTEIN CSF (BEAKER) (test code = 59 mg/dL 15-45 H 378) HEMOGLOBIN [id number] 10:13:00 Test Item Value Reference Range Interpretation Comments HEMOGLOBIN A1C (BEAKER) (test code = 5.2 % 4.3-6.1 368) BASIC METABOLIC [id number] 06:16:00 Test Item Value Reference Range Interpretation [...] NOT APPLICABLE FOR DIALYSIS PATIEN TS. LIPID [id number] 06:07:00 Test Item Value Reference Range Interpretation Comments TRIGLYCERIDES (BEAKER) (test code = 141 mg/dL 540) CHOLESTEROL (BEAKER) (test code = 194 mg/dL 631) HDL CHOLESTEROL (BEAKER) (test code 56 mg/dL = 976) LDL CHOLESTEROL CALCULATED (BEAKER) 110 mg/dL (test code = 633) Triglyceride Reference Range: Low Risk <150 Borderline 150-199 High Risk 200- 499 Very High Risk >=500Cholesterol Reference Range: Low Risk <200 Borderline 200-239 High Risk >240HDL Cholesterol Reference Range: Low Risk >=60 High Risk <40LDL Cholesterol Reference Range: Optimal <100 Near Optimal 100-129 Borderline 130-159 High 160-189 Very High >=190HEPATIC FUNCTION [id number] 06:07:00 Test Item Value Reference Range Interpretation [...] = 8 U/L 6-55 347) BASIC METABOLIC [id number] 05:40:00 Test Item Value Reference Range Interpretation [...] PATIEN TS. CBC W/PLT COUNT & AUTO [id number] 05:37:00 Test Item Value Reference Range Interpretation [...] K/ L 0.00-0.20 (test code = 417) 0.00PT/[id number] 05:30:00 Test Item Value Reference Range Interpretation Comments PROTIME (BEAKER) (test code = 12.8 seconds 11.7-14.7 759) INR (BEAKER) (test code = 370) 1.0 <=5.9 PARTIAL THROMBOPLASTIN TIME 26.3 seconds 22.5-36.0 (BEAKER) (test code = 760) RECOMMENDED COUMADIN/WARFARIN INR THERAPY RANGESSTANDARD DOSE: 2.0 - 3.0 Includes: PROPHYLAXIS for venous thrombosis, systemic embolization; TREATMENT for venous thrombosis and/or pulmonary embolus.HIGH RISK: Target INR is 2.5-3.5 for patients with mechanical heart valves.POCT-GLUCOSE [id number] 22:11:00 Test Item Value Reference Range Interpretation Comments POC-GLUCOSE METER 107 mg/dL 70-110 TESTED AT [place] [address] (KIRBY) (test code = [place] [address]) [address]
--- NOTE | 2023-01-03 12:05 | RAD REPORT ---
EXAM DESCRIPTION: RAD - Chest Single View - 01/03/2023 11:58 am CLINICAL HISTORY: SOB Chest pain. COMPARISON: Chest Pa And Lat (2 Views) dated 12/17/2022; Chest Pa And Lat (2 Views) dated 03/03/2020; Chest Pa And Lat (2 Views) dated 10/06/2019; Chest Single View dated 02/12/2017 FINDINGS: Portable technique limits examination quality. The lungs are grossly clear. The heart is normal in size. No displaced fractures. IMPRESSION: No acute intrathoracic process suspected.
[2023-01-03 12:12] LABS: Protime INR 1.02
[2023-01-03 12:16] LABS: Albumin 2.9 g/dL (3.4-5.0); Bilirubin Direct 0.2 mg/dL (0-0.2); Bilirubin Indirect, Calculated 0.2 mg/dL (0.2-0.8); Bilirubin Total 0.4 mg/dL (0.2-1.0); Magnesium 2.6 mg/dL (1.6-2.4); Potassium 4.2 mEq/L (3.5-5.1); Protein, Total 6.4 g/dL (6.4-8.2); Troponin High Sensitivity 10.5 pg/mL (<58.9)
[2023-01-03 12:17] LABS: Absolute Lymphocytes (CBC) 0.7 K/uL (0.7-4.9); Hematocrit 29.8 % (36.0-45.0); Lymphocytes % 10.3 % (15.3-44.8); MCV 88.6 fL (80-100); MPV 7.5 fL (7.6-11.3); Platelets 324 thou/uL (152-406); RBC Red Blood Cell Count 3.37 M/uL (3.86-4.86)
[2023-01-03] MEDS ORDERED: SOD FERRIC GLUC COMPLX/SUCROSE 125 MG in NA CHLORIDE 0.9% 100 ML IV ONE (12:30)
--- NOTE | 2023-01-03 14:18 | ER ---
Nurse's Notes [facility] Name: Ally Valdivia Age: 72 yrs Sex: Female : 1950 Arrival Date: 01/03/2023 Time: 10:58 Bed 4 Private MD: Diagnosis: Iron deficiency anemia, unspecified Presentation: 01/03 11:07 Chief complaint: Patient states: a couple weeks ago I was sick and was prescribed abx iw and was told her iron was down , she does not feel good, has no energy, is SOB , has hx of anemia. Coronavirus screen: Client presents with at least one sign or symptom that may indicate coronavirus-19. Ebola Screen: Patient negative for fever greater than or equal to 101.5 degrees Fahrenheit, and additional compatible Ebola Virus Disease symptoms Patient denies exposure to infectious person. Patient denies travel to an Ebola-affected area in the 21 days before illness onset. No symptoms or risks identified at this time. Initial Sepsis Screen: Does the patient meet any 2 criteria? No. Patient's initial sepsis screen is negative. Does the patient have a suspected source of infection? No. Patient's initial sepsis screen is negative. Risk Assessment: Do you want to hurt yourself or someone else? Patient reports no desire to harm self or others. 11:07 Method Of Arrival: Ambulatory iw 11:07 Acuity: SANTHOSH 3 iw 11:41 Onset of symptoms was December 29, 2022. hb Historical: - Allergies: 11:06 Codeine; iw 11:06 Sulfa (Sulfonamide Antibiotics); iw 11:06 Talwin; iw - PMHx: 11:06 Asthma; Hypertension; Migraines; RA (Migraines); Crohn's disease; iw - Immunization history:: Adult Immunizations up to date. - Social history:: Smoking status: . Screenin:40 [facility] ED Fall Risk Assessment (Adult) Score/Fall Risk Level 0 - 2 = Low Risk hb Oriented to surroundings, Maintained a safe environment. Abuse screen: Denies threats or abuse. Denies injuries from another. Nutritional screening: No deficits noted. Tuberculosis screening: No symptoms or risk factors identified. Assessment: 11:39 General: Appears in no apparent distress. Behavior is calm, cooperative. Pain: Denies hb pain. Neuro: Level of Consciousness is awake, alert, obeys commands, Oriented to person, place, time, situation. Cardiovascular: Patient's skin is warm and dry. Respiratory: Reports shortness of breath Respiratory effort is even, unlabored, Respiratory pattern is regular, symmetrical. GI: No signs and/or symptoms were reported involving the gastrointestinal system. : No signs and/or symptoms were reported regarding the genitourinary system. EENT: No signs and/or symptoms were reported regarding the EENT system. Derm: Skin is dry, Skin is pale, Skin temperature is warm. Musculoskeletal: No signs and/or symptoms reported regarding the musculoskeletal system. 12:47 Reassessment: Patient appears in no apparent distress at this time. Patient and/or hb family updated on plan of care and expected duration. Pain level reassessed. Patient is alert, oriented x 3, equal unlabored respirations, skin warm/dry/pink. 12:58 Reassessment: Iron infusion started to LAC, see [place] [employer] for med administration. hb 13:40 Reassessment: Patient appears in no apparent distress at this time. Patient and/or tm6 family updated on plan of care and expected duration. Pain level reassessed. Vital Signs: 11:07 BP 134 / 65; Pulse 105; Resp 19; Temp 98.5; Pulse Ox 95% on R/A; iw 12:45 BP 141 / 71; Pulse 85; Resp 17; Pulse Ox 96% on R/A; hb 13:40 BP 150 / 77; Pulse 90; Resp 21; Pulse Ox 98% on R/A; tm6 ED Course: 11:01 Patient arrived in ED. im 11:02 Brandie Bartlett PA-C is PHCP. sb4 11:02 Yesica Alford MD is Attending Physician. sb4 11:07 Arm band placed on. iw 11:09 Triage completed. iw 11:25 Jose R Oropeza RN is Primary Nurse. tm6 11:40 Patient has correct armband on for positive identification. Provided Education on: . hb 11:40 Inserted saline lock: 20 gauge in left antecubital area, using aseptic technique. hb ,using aseptic technique. by Britt MOCTEZUMA Blood collected. 12:00 XRAY Chest (1 view) In Process Unspecified. EDMS 14:31 No provider procedures requiring assistance completed. IV discontinued, intact, hb bleeding controlled, No redness/swelling at site. Administered Medications: 13:11 Drug: Ferrlecit 125 mg IV at calculated rate once Route: IV; Rate: calculated rate; tm6 Site: left antecubital; Medication: 11:40 VIS not applicable for this client. hb Outcome: 14:17 Discharge ordered by MD. astudillo 14:30 Discharged to home via wheelchair, with family, 14:30 Condition: stable 14:30 Discharge instructions given to patient, family, Instructed on discharge instructions, follow up and referral plans. medication usage, Demonstrated understanding of instructions, follow-up care, 14:31 Patient left the ED. hb Signatures: Dispatcher [employer] EDSadie Santamaria RN RN Ally Blair RN RN Brandie Jack, PA-C PA-C sb4 Yuli Gallegos Tawney, RN RN tm6
--- NOTE | 2023-01-03 14:18 | EDPHYS ---
Physician Documentation [facility] Name: Ally Valdivia Age: 72 yrs Sex: Female : 1950 Arrival Date: 01/03/2023 Time: 10:58 Bed 4 Private MD: ED Physician Yesica Alford HPI: 01/03 11:22 This 72 yrs old Female presents to ER via Ambulatory with complaints of Shortness Of sb4 Breath. 13:20 patient states she has known iron deficiency anemia. she had blood work about 2 weeks sb4 and had a hemoglobin of 10.4 and iron of 7. she states she occasionally gets iron infusions but her dispersion mixer is out of town so they could not get that done. she states she has been taking PO iron supplements in the interim but has been feeling extremely fatigued and short of breath. Historical: - Allergies: 11:06 Codeine; iw 11:06 Sulfa (Sulfonamide Antibiotics); iw 11:06 Talwin; iw - PMHx: 11:06 Asthma; Hypertension; Migraines; RA (Migraines); Crohn's disease; iw - Immunization history:: Adult Immunizations up to date. - Social history:: Smoking status: . ROS: 13:20 Abdomen/GI: Negative for abdominal pain, nausea, vomiting, diarrhea, and constipation, sb4 13:20 Constitutional: Positive for fatigue, malaise, 13:20 Respiratory: Positive for shortness of breath, 13:20 All other systems are negative, Exam: 13:20 Head/Face: Normocephalic, atraumatic. Eyes: Extra-ocular motions intact. Periorbital sb4 areas with no swelling, redness, or edema. ENT: Mucous membranes moist. Cardiovascular: Regular rate and rhythm with a normal S1 and S2. Respiratory: Lungs have equal breath sounds bilaterally, clear to auscultation and percussion. No rales, rhonchi or wheezes noted. No increased work of breathing, no retractions or nasal flaring. Abdomen/GI: Soft, non-tender, no distension. Skin: Warm, dry with normal turgor. Normal color with no rashes, no lesions, and no evidence of cellulitis. MS/ Extremity: Pulses equal, no cyanosis. Neurovascular intact. Full, normal range of motion. Neuro: Awake and alert, GCS 15, oriented to person, place, time, and situation. Motor strength 5/5 in all extremities. Sensory grossly intact. 13:20 Constitutional: The patient appears alert, awake, pale, Vital Signs: 11:07 BP 134 / 65; Pulse 105; Resp 19; Temp 98.5; Pulse Ox 95% on R/A; iw 12:45 BP 141 / 71; Pulse 85; Resp 17; Pulse Ox 96% on R/A; hb 13:40 BP 150 / 77; Pulse 90; Resp 21; Pulse Ox 98% on R/A; tm6 MDM: 11:14 Patient medically screened. sb4 13:20 Antibiotic administration: Not indicated, the patient does not have an appreciated sb4 infiltrate. Data interpreted: Pulse oximetry: on room air is 96 %. Interpretation: normal. Differential diagnosis: Anemia asthma, Bronchitis viral Infection, bacterial infection, URI, pneumonia pneumonia. 14:16 Data reviewed: vital signs, nurses notes, lab test result(s), EKG, radiologic studies, sb4 I have discussed the patient's presentation/case with the attending Emergency Department Physician; and as a result, I will discharge patient. Consideration of Admission/Observation Escalation of care including admission/observation considered. Historians other than the Patient: Spouse/Significant Other: spouse. Care significantly affected by the following chronic conditions: Hypertension. Counseling: I had a detailed discussion with the patient and/or guardian regarding the historical points, exam findings, and any diagnostic results supporting the discharge/admit diagnosis, lab results, radiology results, the need for outpatient follow up, hematology, to return to the emergency department if symptoms worsen or persist or if there are any questions or concerns that arise at home. 01/03 11:15 Order name: Basic Metabolic Panel; Complete Time: 12:17 sb4 01/03 11:15 Order name: CBC with Diff; Complete Time: 12:19 sb4 01/03 11:15 Order name: LFT's; Complete Time: 12:17 sb4 01/03 11:15 Order name: Magnesium; Complete Time: 12:17 sb4 01/03 11:15 Order name: NT PRO-BNP; Complete Time: 12:17 sb4 01/03 11:15 Order name: PT-INR; Complete Time: 12:13 sb4 01/03 11:15 Order name: Troponin HS; Complete Time: 12:17 sb4 01/03 11:15 Order name: Type And Screen; Complete Time: 12:35 sb4 01/03 11:15 Order name: XRAY Chest (1 view); Complete Time: 12:07 sb4 01/03 11:15 Order name: EKG; Complete Time: 11:16 sb4 01/03 11:15 Order name: Cardiac monitoring; Complete Time: 11:37 sb4 01/03 11:15 Order name: EKG - Nurse/Tech; Complete Time: 11:37 sb4 01/03 11:15 Order name: IV Saline Lock; Complete Time: 11:41 sb4 01/03 11:15 Order name: Labs collected and sent; Complete Time: 11:41 sb4 01/03 11:15 Order name: O2 Per Protocol; Complete Time: 11:26 sb4 01/03 11:15 Order name: O2 Sat Monitoring; Complete Time: 11:26 sb4 EC:11 Rate is 94 beats/min. Rhythm is regular, Normal Sinus Rhythm. AR interval is normal at sb4 206 msec. QRS interval is normal at 74 msec. QT interval is normal at 452 msec. T waves are Normal. No ST changes noted. Interpreted by me. Reviewed by me. Administered Medications: 13:11 Drug: Ferrlecit 125 mg IV at calculated rate once Route: IV; Rate: calculated rate; tm6 Site: left antecubital; Disposition Summary: 01/03/23 14:17 Discharge Ordered Notes: Location: Home sb4 Problem: an ongoing problem sb4 Symptoms: have improved sb4 Condition: Stable sb4 Diagnosis - Iron deficiency anemia, unspecified sb4 Followup: sb4 - With: Emergency Department - When: As needed - Reason: Trouble breathing, Worsening of condition Discharge Instructions: - Discharge Summary Sheet sb4 - Iron Deficiency Anemia, Adult sb4 - Iron-Rich Diet sb4 - Preventing Iron Deficiency Anemia, Adult sb4 Forms: - Medication Reconciliation Form sb4 - Thank You Letter sb4 - Antibiotic Education sb4 - Prescription Opioid Use sb4 - Patient Portal Instructions sb4 - Leadership Thank You Letter sb4 Signatures: Dispatcher [employer] Sadie Altman RN RN iw Baxter, Heather, RN RN hb Brown, Sophia, PA-C PA-C sb4 Jose R Oropeza RN RN tm6
[2023-01-03 14:37] VITALS: TEMP 98.5
[2023-01-03 14:40] VITALS: BP 150/77; O2SAT 98
--- NOTE | 2023-01-04 14:09 | EKG ---
Test Date: 2023-01-03 Test Time: 11:31:41 Developer Analyst: HB MEASUREMENT RESULTS: Intervals: Rate: 94 NV: 206 QRSD: 74 QT: 362 QTc: 452 Velpen: P: 34 NV: 206 QRS: -19 T: 33 INTERPRETIVE STATEMENTS: Normal sinus rhythm Septal infarct, age undetermined Abnormal ECG Compared to ECG 02/01/2020 14:49:19 Myocardial infarct finding now present ST (T wave) deviation no longer present Electronically Signed On 01-04-23 14:07:00 POSTAL SERVICE WINDOW CLERK by Fernando Dash
== END 2023-01-03 14:31 | disposition home or self-care (01) ==
LOC: ER 10:58
DX: D50.9 Iron deficiency anemia, unspecified (principal); Z88.2 Allergy status to sulfonamides; Z88.5 Allergy status to narcotic agent; Z88.8 Allergy status to other drugs, medicaments and biological substances
CPT/HCPCS: 93005; 85025; 80048; 36415; 86900; 83735; 86850; 85610; 86901; 80076; 84484; 83880; 71045; 96374; 99284; J2916

== ENCOUNTER 2023-10-19 14:42 | Inpatient (IN) | payer OTHER, BC ==
[2023-10-19] MEDS ORDERED: NA CHLORIDE 0.9% 500 ML ONE (15:48)
[2023-10-19 16:24] LABS: Absolute Eosinophils 0.1 K/uL (0-0.5); Absolute Lymphocytes (CBC) 1.1 K/uL (0.7-4.9); Absolute Monocytes 0.6 K/uL (0.1-1.3); Absolute Neutrophil 2.6 K/uL (1.8-8.0); Basophils % 0.5 % (0-1.3); Eosinophils % 1.7 % (0-4.4); Hemoglobin 9.6 g/dL (12.0-15.0); Lymphocytes % 24.4 % (15.3-44.8); MCH 29.5 pg (27.0-35.0); MCV 95.4 fL (80-100); MPV 7.6 fL (7.6-11.3); Neutrophils % 59.4 % (41.7-73.7); Nucleated Red Blood Cells % 0.1 % (0-0); Platelets 329 thou/uL (152-406); RBC Red Blood Cell Count 3.24 M/uL (3.86-4.86); Red Cell Distribution Width 14.9 % (12.1-15.2)
[2023-10-19 16:29] LABS: Specific Gravity 1.009 (1.005-1.030); Sqamous Epithelial <5 /HPF (None Seen); Transitional Epithelial <5 /HPF (None Seen); Urine Bacteria <20 /HPF (<20); Urine Bilirubin NEGATIVE (Negative); Urine Blood Trace (Negative); Urine Clarity Extremely Turbid (Clear); Urine Color Dark-Yellow (Yellow); Urine Culture Reflex Order REFLEXED; Urine Glucose NEGATIVE (Negative); Urine Ketones NEGATIVE (Negative); Urine Microscopic Reflex YN ORDER UMIC; Urine Mucus Slight /HPF (None Seen); Urine Nitrite 1+ (Negative); Urine Protein TRACE (Negative); Urine Urobilinogen Normal (Normal); Urine WBC >50 /HPF (<5); Urine WBC Clump Few /HPF (None Seen)
[2023-10-19 16:38] LABS: Albumin 3.1 g/dL (3.4-5.0); Albumin/Globulin Ratio 0.8 (1.1-1.8); Anion Gap 6.8 mEq/L (5.0-15.0); Bilirubin Total 0.7 mg/dL (0.2-1.0); Globulin 3.8 g/dL (2.3-3.5); Magnesium 2.3 mg/dL (1.6-2.4); PT Prothrombin Time 10.9 SECONDS (9.4-12.5); PTT, Activated Partial Thromb 31.1 SECONDS (24.3-36.9); Potassium 3.8 mEq/L (3.5-5.1); Protein, Total 6.9 g/dL (6.4-8.2); Protime INR 0.97
--- NOTE | 2023-10-19 18:08 | RAD REPORT ---
EXAM DESCRIPTION: CT - Abdomen Pelvis W Contrast - 10/19/2023 5:17 pm CLINICAL HISTORY: ABD PAIN COMPARISON: Abdomen Pelvis W Contrast dated 12/04/2017 TECHNIQUE: Thin cut axial CT imaging of the abdomen and pelvis was performed following intravenous a dministration of iodinated contrast. Multiplanar reformats were generated and reviewed. All CT scans are performed using dose optimization technique as appropriate and may include automated exposure control or mA/KV adjustment according to patient size. FINDINGS: No suspicious findings in the lung bases. The liver, spleen, adrenal glands, and pancreas show no suspicious findings. Gallbladder and biliary tree are also without suspicious finding. Symmetric renal function is seen with no hydronephrosis or suspicious renal mass. Urothelial enhancem ent along the nondilated right renal collecting system to the level of the distal ureter which mild a ssociated perinephric fat stranding. Minimal urothelial enhancement along the left renal pelvis. No dilated bowel loops or bowel wall thickening. No free air, free fluid or inflammatory stranding. D istal colonic diverticulosis. Subcentimeter calcific focus within the right aspect of the right fundu s may represent a small calcified fibroid. No hernia, mass or bulky lymphadenopathy. The urinary blad neisha is without significant finding. No suspicious bony findings. IMPRESSION: Asymmetric urothelial enhancement along the right renal collecting system with mild asso ciated right perinephric fat stranding. Findings raise concern for bilateral pyelitis. Clinical Corre lation, and correlation with urinalysis results are recommended. Other incidental findings as above.
--- NOTE | 2023-10-19 18:49 | ER ---
Nurse's Notes [facility] Name: Ally Valdivia Age: 73 yrs Sex: Female : 1950 Arrival Date: 10/19/2023 Time: 14:42 Bed 5 Private MD: Diagnosis: Pyelitis cystica;Nausea with vomiting, unspecified Presentation: 10/18 15:16 Chief complaint: Patient states: burning with urination x 2-3 days ago, reports today aa5 feels weak and with "no energy". Coronavirus screen: At this time, the client does not indicate any symptoms associated with coronavirus-19. Ebola Screen: Patient denies travel to an Ebola-affected area in the 21 days before illness onset. Risk Assessment: Do you want to hurt yourself or someone else? Patient reports no desire to harm self or others. Onset of symptoms was September 2023. 15:16 Method Of Arrival: Ambulatory aa5 15:16 Initial Sepsis Screen: Does the patient meet any 2 criteria? No. Patient's initial aa5 sepsis screen is negative. Does the patient have a suspected source of infection? No. Patient's initial sepsis screen is negative. 15:16 Acuity: SANTHOSH 2 aa5 Historical: - Allergies: 15:18 Codeine; aa5 15:18 Sulfa (Sulfonamide Antibiotics); aa5 15:18 Talwin; aa5 - PMHx: 15:18 Asthma; Crohn's Disease; Hypertension; Migraines; RA (Migraines); Anemia; aa5 - Immunization history:: Adult Immunizations unknown. - Infectious Disease History:: Denies. - Social history:: Smoking status: Patient denies any tobacco usage or history of. Screenin:45 [facility] ED Fall Risk Assessment (Adult) History of falling in the last 3 months, kc6 including since admission No falls in past 3 months (0 pts) Confusion or Disorientation No (0 pts) Intoxicated or Sedated No (0 pts) Impaired Gait No (0 pts) Mobility Assist Device Used No (0 pt) Altered Elimination No (0 pt) Score/Fall Risk Level 0 - 2 = Low Risk. Abuse screen: Denies threats or abuse. Denies injuries from another. Nutritional screening: No deficits noted. Tuberculosis screening: No symptoms or risk factors identified. Assessment: 15:45 General: Appears in no apparent distress. comfortable, well groomed, well developed, kc6 Behavior is calm, cooperative, appropriate for age, Reports chills for 1-2 days, fever for 1-2 days, feeling ill for 1-2 days, fatigue for 1-2 days. Pain: Denies pain. Neuro: Level of Consciousness is awake, alert, obeys commands, Oriented to person, place, time, situation, Appropriate for age Reports weakness. Cardiovascular: Capillary refill < 3 seconds. Respiratory: Airway is patent Trachea midline Respiratory effort is even, unlabored, Respiratory pattern is regular, symmetrical. GI: No signs and/or symptoms were reported involving the gastrointestinal system. : Reports burning with urination. EENT: No signs and/or symptoms were reported regarding the EENT system. Derm: No signs and/or symptoms reported regarding the dermatologic system. Skin is intact, is healthy with good turgor, Skin is dry, Skin is pale, Skin temperature is warm. Musculoskeletal: No signs and/or symptoms reported regarding the musculoskeletal system. Circulation, motion, and sensation intact. Capillary refill < 3 seconds, Range of motion: intact in all extremities. 16:45 Reassessment: Patient appears in no apparent distress at this time. No changes from kc6 previously documented assessment. Patient and/or family updated on plan of care and expected duration. Pain level reassessed. Patient is alert, oriented x 3, equal unlabored respirations, skin warm/dry/pink. 17:39 Reassessment: Patient appears in no apparent distress at this time. No changes from kc6 previously documented assessment. Patient and/or family updated on plan of care and expected duration. Pain level reassessed. Patient is alert, oriented x 3, equal unlabored respirations, skin warm/dry/pink. 18:39 Reassessment: Patient appears in no apparent distress at this time. No changes from kc6 previously documented assessment. Patient and/or family updated on plan of care and expected duration. Pain level reassessed. Patient is alert, oriented x 3, equal unlabored respirations, skin warm/dry/pink. 19:34 General: Appears in no apparent distress. comfortable, Behavior is calm, cooperative. al5 Pain: Denies pain. Neuro: Level of Consciousness is awake, alert, obeys commands, Oriented to person, place, time, situation, Appropriate for age. Cardiovascular: Patient's skin is warm and dry. Respiratory: Airway is patent Respiratory effort is even, unlabored, Respiratory pattern is regular, symmetrical. GI: No signs and/or symptoms were reported involving the gastrointestinal system. : Reports burning with urination. EENT: No signs and/or symptoms were reported regarding the EENT system. Derm: Skin is intact, Skin is pink, warm \\T\\ dry. Musculoskeletal: No signs and/or symptoms reported regarding the musculoskeletal system. Vital Signs: 15:16 BP 109 / 64; Pulse 90; Resp 16 S; Temp 97.5(TE); Pulse Ox 94% on R/A; Weight 81.65 kg aa5 (R); Height 5 ft. 5 in. (R); 16:16 BP 126 / 72; Pulse 81; Resp 16 S; Pulse Ox 98% on R/A; kc6 19:00 BP 160 / 84; Pulse 79; Resp 18; Pulse Ox 100% on R/A; al5 15:16 Body Mass Index 29.95 (81.65 kg, 165.1 cm) aa5 ED Course: 14:46 Patient arrived in ED. ra3 15:16 Arm band placed on. aa5 15:17 Triage completed. aa5 15:26 Pia Lucas, RHIANNA is Primary Nurse. kc6 15:31 Tamela Kellogg MD is Attending Physician. sd2 15:45 Patient has correct armband on for positive identification. Bed in low position. Call kc6 light in reach. Side rails up X 1. Adult w/ patient. director of product management on. Pulse ox on. NIBP on. Door closed. Noise minimized. Lights dimmed. Warm blanket given. Pillow given. 16:08 Inserted saline lock: 20 gauge in right antecubital area, using aseptic technique. kc6 Blood collected. Flushed with 10 mL NS. 17:19 CT Abd/Pelvis - IV Contrast Only In Process Unspecified. EDMS 18:48 Dominick Chavez MD is Hospitalizing Provider. sd2 19:00 Report given to Keren Alonzo RN. kc6 20:43 No provider procedures requiring assistance completed. Patient admitted, IV remains in al5 place. 20:44 Provided Education on: need for admission. al5 Administered Medications: 16:08 Drug: NS 0.9% IV 500 ml IV at bolus once Route: IV; Rate: bolus; Site: right kc6 antecubital; 17:39 Follow up: Response: No adverse reaction; IV Status: Completed infusion; IV Intake: kc6 500ml 19:14 Drug: Rocephin IV 1 grams IV at bolus once; Given slow IV push per pharmacy al5 instructions Route: IV; Rate: bolus; Site: right antecubital; 19:31 Follow up: Response: No adverse reaction; IV Status: Completed infusion; IV Intake: [id number] Medication: 20:44 VIS not applicable for this client. al5 Intake: 17:39 IV: 500ml; Total: 500ml. kc6 19:31 IV: 10ml; Total: 510ml. al5 Outcome: 18:49 Decision to Hospitalize by Provider. sd2 20:44 Admitted to Med/surg accompanied by tech, via stretcher, room 411, with chart, al5 20:44 Condition: good 20:44 Instructed on the need for admit, 20:44 Patient left the ED. al5 Signatures: Dispatcher [employer] EDMS Cecily Huntley RN RN aa5 Tamela Kellogg MD MD sd2 Pia Lucas RN RN [id number] Sonam Philippe ra3 Keren Hong RN RN al5 Corrections: (The following items were deleted from the chart) 15:18 15:16 Acuity: SANTHOSH 3 aa5 aa5
--- NOTE | 2023-10-19 18:49 | EDPHYS ---
Physician Documentation [facility] Name: Ally Valdivia Age: 73 yrs Sex: Female : 1950 Arrival Date: 10/19/2023 Time: 14:42 Bed 5 Private MD: ED Physician Tamela Kellogg HPI: 10/18 17:07 This 73 yrs old Female presents to ER via Ambulatory with complaints of Weakness, sd2 Urinary Problem. 17:07 73 yo F presents with CC of UTI symptoms since Friday. Reports trying Azo and OTC sd2 remedies without relief and then began to get chills, lower abdominal pain and generalized weakness. Also has hx of anemia requiring blood transfusions. Denies any blood in her stool but has had vomiting also that is non-bloody. . Historical: - Allergies: 15:18 Codeine; aa5 15:18 Sulfa (Sulfonamide Antibiotics); aa5 15:18 Talwin; aa5 - PMHx: 15:18 Asthma; Crohn's Disease; Hypertension; Migraines; RA (Migraines); Anemia; aa5 - Immunization history:: Adult Immunizations unknown. - Infectious Disease History:: Denies. - Social history:: Smoking status: Patient denies any tobacco usage or history of. ROS: 17:07 Constitutional: Negative for fever and weight loss, positive for chills Eyes: Negative sd2 for injury, pain, redness, and discharge, Cardiovascular: Negative for chest pain, palpitations, and edema, Respiratory: Negative for shortness of breath, cough, wheezing. 17:07 Back: Negative for injury and pain, 17:07 MS/Extremity: Negative for injury and deformity, Skin: Negative for injury, rash, and discoloration, Neuro: Negative for headache, numbness and tingling. 17:07 Abdomen/GI: Positive for abdominal pain, nausea and vomiting, diarrhea, Negative for hematemesis, rectal bleeding, 17:07 : Positive for urinary symptoms, urinary frequency, burning with urination, foul smelling urine, Exam: 17:07 Constitutional: This is a well developed, well nourished patient who is awake, alert, sd2 and in no acute distress. Head/Face: Normocephalic, atraumatic. Eyes: EOMI, normal conjunctiva bilaterally Chest/axilla: Normal chest wall appearance and motion. Nontender with no deformity. Cardiovascular: Regular rate and rhythm with a normal S1 and S2. No gallops, murmurs, or rubs. 2+ distal pulses. Respiratory: Lungs have equal breath sounds bilaterally, clear to auscultation and percussion. No rales, rhonchi or wheezes noted. No increased work of breathing, no retractions or nasal flaring. Abdomen/GI: Soft, ND, mild lower abdominal TTP, no rebound or guarding Skin: Warm, dry with normal turgor. Normal color with no rashes, no lesions, and no evidence of cellulitis. MS/ Extremity: Pulses equal, no cyanosis. Neurovascular intact. Full, normal range of motion. Psych: Awake, alert, with orientation to person, place and time. Behavior, mood, and affect are within normal limits. 17:07 ECG was reviewed by the Attending Physician. NSR, rate 84, no STEMI criteria sd2 Vital Signs: 15:16 BP 109 / 64; Pulse 90; Resp 16 S; Temp 97.5(TE); Pulse Ox 94% on R/A; Weight 81.65 kg aa5 (R); Height 5 ft. 5 in. (R); 16:16 BP 126 / 72; Pulse 81; Resp 16 S; Pulse Ox 98% on R/A; kc6 19:00 BP 160 / 84; Pulse 79; Resp 18; Pulse Ox 100% on R/A; al5 15:16 Body Mass Index 29.95 (81.65 kg, 165.1 cm) aa5 MDM: 15:31 Patient medically screened. sd2 17:07 Data reviewed: vital signs, nurses notes, lab test result(s), EKG, radiologic studies. sd2 Historians other than the Patient: Spouse/Significant Other: at . Care significantly affected by the following chronic conditions: Hypertension, Crohn's disease, anemia. 18:48 Management of patient was discussed with the following: Hospitalist: Dr. Chavez. sd2 Counseling: I had a detailed discussion with the patient and/or guardian regarding the historical points, exam findings, and any diagnostic results supporting the discharge/admit diagnosis, lab results, radiology results, the need for further work-up and treatment in the hospital. 10/18 15:46 Order name: CBC with Diff; Complete Time: 16:44 sd2 10/18 15:46 Order name: CMP; Complete Time: 18:38 sd2 10/18 15:46 Order name: Magnesium; Complete Time: 18:38 sd2 10/18 15:46 Order name: Troponin High Sensitivity; Complete Time: 18:38 sd2 10/18 15:46 Order name: Urinalysis w/ reflexes; Complete Time: 18:38 sd2 10/18 15:46 Order name: PT-INR; Complete Time: 16:44 sd2 10/18 15:46 Order name: Ptt, Activated; Complete Time: 16:44 sd2 10/18 15:46 Order name: Type And Screen; Complete Time: 18:38 sd2 10/18 16:51 Order name: Urine Culture EDMN 10/18 17:11 Order name: Lipase; Complete Time: 18:38 EDMS 10/18 19:20 Order name: Urinalysis w/ reflexes EDMN 10/18 19:20 Order name: CBC with Automated Diff EDMN 10/18 19:20 Order name: CBC with Automated Diff EDMN 10/18 19:20 Order name: Comprehensive Metabolic Panel EDMN 10/18 19:20 Order name: Comprehensive Metabolic Panel [facility] 10/18 16:45 Order name: CT Abd/Pelvis - IV Contrast Only; Complete Time: 18:38 sd2 10/18 15:46 Order name: EKG - Nurse/Tech; Complete Time: 15:46 sd2 Administered Medications: 16:08 Drug: NS 0.9% IV 500 ml IV at bolus once Route: IV; Rate: bolus; Site: right kc6 antecubital; 17:39 Follow up: Response: No adverse reaction; IV Status: Completed infusion; IV Intake: kc6 500ml 19:14 Drug: Rocephin IV 1 grams IV at bolus once; Given slow IV push per pharmacy al5 instructions Route: IV; Rate: bolus; Site: right antecubital; 19:31 Follow up: Response: No adverse reaction; IV Status: Completed infusion; IV Intake: [id number] Disposition Summary: 10/19/23 18:49 Hospitalization Ordered Notes: Hospitalization Status: Inpatient Admission sd2 Provider: Dominick Chavez Location: Telemetry/MedSur (Inpatient) sd2 Condition: Stable sd2 Problem: new sd2 Symptoms: have improved sd2 Bed/Room Type: [place] sd2 Room Assignment: 411(10/19/23 19:22) sp Diagnosis - Pyelitis cystica sd2 - Nausea with vomiting, unspecified sd2 Forms: - Medication Reconciliation Form sd2 - SBAR form sd2 - Leadership Thank You Letter sd2 Signatures: Dispatcher [employer] EDMS Sarina MaryCecily Vickers, RN RN aa5 Tamela Kellogg MD MD sd2 Pia Lucas RN RN kc6 Keren Hong RN RN al5 Corrections: (The following items were deleted from the chart) 15:47 15:47 CBC+H.LAB.BRZ ordered. EDMS EDMS 15:47 15:47 COMPREHENSIVE METABOLIC PANEL+C.LAB.BRZ ordered. EDMS EDMS 15:47 15:47 MAGNESIUM+C.LAB.BRZ ordered. EDMS EDMS 15:47 15:47 Troponin High Sensitivity+C.LAB.BRZ ordered. EDMS EDMS 15:47 15:47 Urinalysis+U.LAB.BRZ ordered. EDMS EDMS 15:47 15:47 PROTIME (+INR)+COAG.LAB.BRZ ordered. EDMS EDMS 15:47 15:47 PTT, ACTIVATED+COAG.LAB.BRZ ordered. EDMS EDMS 15:47 15:47 TYPE AND SCREEN+BB.LAB.BRZ ordered. EDMS EDMS 17:11 16:45 LIPASE+C.LAB.BRZ ordered. EDMS EDMS 19:22 18:49 sd2 sp
[2023-10-19] MEDS ORDERED: CEFTRIAXONE 1000 MG/VIAL ONE (19:08)
--- NOTE | 2023-10-19 19:16 | P.HP ---
Certification for Inpatient Patient admitted to: Inpatient With expected LOS: >2 Midnights Practitioner: I am a practitioner with admitting privileges, knowledge of patient current condition, hospital course, and medical plan of care. Services: Services provided to patient in accordance with Admission requirements found in Title 42 Section 412.3 of the Code of Federal Regulations Patient History Date of Service: 10/19/23 Reason for admission: Nausea, Vomiting, Dysuria History of Present Illness: 73 yrs old Female with past medical history of anemia, Crohn's disease, hypertension, migraines, came to ER with generalized weakness and dysuria which has been going on for the last few days. Patient states that symptoms started Friday and has been trying [id number] Azo and other medications without much relief. Started having fever subjective and chills. Hide was brought to ER. Denies any chest pain or shortness of breath. Complains of nausea and 1 episode of vomiting. Patient was assessed in the ER and is admitted for further management of pyelonephritis Allergies codeine Allergy (Verified 04/05/22 12:12) Hives, nausea, vomiting pentazocine [From Talwin] Allergy (Verified 04/05/22 12:12) Nausea/Vomiting tramadol Allergy (Verified 04/05/22 12:12) [place] sleepy Sulfa (Sulfonam Allergy (Uncoded 04/05/22 12:12) hives, nausea, vomiting Sulfa (Sulfonamide Antibi Allergy (Uncoded 04/05/22 12:12) hives, nausea, vomiting Home medications list reviewed: Yes Home Medications: Atorvastatin Calcium [Lipitor] 40 mg PO BEDTIME 04/05/22 Duloxetine HCl [Cymbalta] 60 mg PO BEDTIME 04/05/22 Ezetimibe [Zetia] 10 mg PO DAILY 04/05/22 Fluticasone/Umeclidin/Vilanter [Trelegy Ellipta 100-62.5-25] 1 each IH BID 04/05/22 Furosemide [Lasix] 20 mg PO DAILY 04/05/22 Leflunomide [Arava] 10 mg PO DAILY 04/05/22 Levothyroxine Sodium [Levothyroxine] 25 mcg PO 0600 04/05/22 Metoprolol Succinate [Toprol Xl] 25 mg PO DAILY 04/05/22 Montelukast [Singulair] 10 mg PO DAILY 04/05/22 Cholecalciferol (Vitamin D3) [Vitamin D3] 250 mcg PO DAILY 10/19/23 Omeprazole 20 mg PO DAILY 10/19/23 Pregabalin [Lyrica] 75 mg PO TID 10/19/23 lisinopriL [Lisinopril] 10 mg PO DAILY 10/19/23 - Past Medical/Surgical History Past Medical History: Reviewed- Non-Contributory -: Hypertension, hypothyroidism Past Surgical History: Reviewed- Non-Contributory - Social History Smoking Status: Never smoker Physical Examination - Vital Signs Temperature: 97.2 F Blood Pressure: 126/72 Pulse: 82 Respirations: 18 Pulse Ox (%): 94 - Physical Exam General: Alert, In no apparent distress, Oriented x3 HEENT: Atraumatic, Normocephalic Neck: Supple, JVD not distended Respiratory: Clear to auscultation bilaterally, Normal air movement Cardiovascular: Normal pulses, Regular rate/rhythm Capillary refill: <2 Seconds Gastrointestinal: Soft and benign, W/out hepatosplenomegaly Musculoskeletal: No clubbing, No swelling Integumentary: No rashes, No breakdown Neurological: Normal speech, Normal strength at 5/5 x4 extr, Cranial nerves 3-12 intact, Normal reflexes 2+ Lymphatics: No axilla or inguinal lymphadenopathy - Studies Laboratory Data (last 24 hrs) 10/19/23 10/19/23 10/19/23 16:45 16:04 16:04 WBC Hgb Hct Plt Count PT 10.9 INR 0.97 APTT 31.1 Sodium 137 Potassium 3.8 BUN 21 H Creatinine 0.92 Glucose 96 Magnesium 2.3 Total Bilirubin 0.7 AST 24 ALT 15 Alkaline Phosphatase 77 Lipase Cancelled 10/19/23 16:04 WBC 4.40 Hgb 9.6 L Hct 31.0 L Plt Count 329 PT INR APTT Sodium Potassium BUN Creatinine Glucose Magnesium Total Bilirubin AST ALT Alkaline Phosphatase Lipase Assessment and Plan - Plan Pyelonephritis Started on IV antibiotic Will obtain urine culture Blood cultures noted IV hydration Monitor closely on telemetry Change antibiotic as per sensitivity Hypertension Antihypertensives titrated Continue home medications and titrate as needed Hyperlipidemia Continue statin Acute renal insufficiency Possibly due to dehydration Monitor renal parameters Electrolytes monitor and replace accordingly Anemia of chronic disease Monitor H&H closely No overt bleeding at this time GI/DVT prophylaxis Advanced directive full code Discharge Plan: Home Plan to discharge in: 48 Hours - Advance Directives Does patient have a Living Will: No Does patient have a Durable POA for Healthcare: No - Code Status/Comfort Care Code Status: Full Code Time Spent Managing Pts Care (In Minutes): 48
[2023-10-19] MEDS: NA CHLORIDE 0.9% 1,000 ML IV SCH (22:37)
[2023-10-19] MEDS: DULOXETINE 30 MG CAP PO SCH (22:41)
[2023-10-19] MEDS: PREGABALIN 75 MG CAP PO SCH (22:41)
[2023-10-19 23:19] VITALS: BMI 29.9
[2023-10-19] MEDS: PIPER TAZO 3.375 GM in NA CHLORIDE 0.9% 100 ML IV SCH (23:47)
[2023-10-20 06:15] LABS: Absolute Eosinophils 0.1 K/uL (0-0.5); Absolute Monocytes 0.6 K/uL (0.1-1.3); Absolute Neutrophil 2.3 K/uL (1.8-8.0); Basophils % 0.5 % (0-1.3); Eosinophils % 1.9 % (0-4.4); Hematocrit 25.8 % (36.0-45.0); Hemoglobin 7.9 g/dL (12.0-15.0); Lymphocytes % 24.4 % (15.3-44.8); MCH 29.4 pg (27.0-35.0); MCHC 30.7 g/dL (32.0-36.0); MCV 95.8 fL (80-100); MPV 7.4 fL (7.6-11.3); Monocytes % 14.3 % (3.3-12.3); Neutrophils % 58.9 % (41.7-73.7); Platelets 272 thou/uL (152-406); RBC Red Blood Cell Count 2.69 M/uL (3.86-4.86); Red Cell Distribution Width 14.6 % (12.1-15.2)
[2023-10-20] MEDS: PANTOPRAZOLE 40MG TABLET PO SCH (06:28)
[2023-10-20] MEDS: LEVOTHYROXINE SOD 0.025 MG TAB PO SCH (06:28)
[2023-10-20 06:33] LABS: ALT/SGPT < 14 U/L (13-56); AST/SGOT 17 U/L (15-37); Albumin 2.4 g/dL (3.4-5.0); Albumin/Globulin Ratio 0.8 (1.1-1.8); Alkaline Phosphatase 61 U/L (45-117); Anion Gap 5.2 mEq/L (5.0-15.0); BUN Blood Urea Nitrogen 18 mg/dL (7-18); Bicarbonate 28 mEq/L (21-32); Bilirubin Total 0.5 mg/dL (0.2-1.0); Glomerular Filtration Rate 90 ml/min (=/>90); Glucose Level 106 mg/dL (74-106); Magnesium 2.3 mg/dL (1.6-2.4); Phosphorus 3.6 mg/dL (2.5-4.9); Potassium 4.2 mEq/L (3.5-5.1); Protein, Total 5.4 g/dL (6.4-8.2); Sodium Level 141 mEq/L (136-145)
[2023-10-20] MEDS: METOPROLOL XL 25 MG TAB PO SCH (09:04)
[2023-10-20] MEDS: VITAMIN D 5,000 UNIT CAP PO SCH (10:01)
[2023-10-20] MEDS: VILANTER IH SCH (12:35)
[2023-10-20] MEDS: UMECLIDIN IH SCH (12:35)
[2023-10-20] MEDS: FLUTICASONE IH SCH (12:35)
--- NOTE | 2023-10-20 16:37 | P.PN ---
Subjective Date of Service: 10/20/23 Chief Complaint: Nausea, Vomiting, Dysuria States she feels better. She reports improvement in her abdominal pain. No recorded fever. Physical Examination - Vital Signs Temperature: 96.0 F Blood Pressure: 130/62 Pulse: 77 Respirations: 12 Pulse Ox (%): 96 - Studies Laboratory Data (last 24 hrs) 10/19/23 10/19/23 10/19/23 16:45 16:04 16:04 WBC Hgb Hct Plt Count PT 10.9 INR 0.97 APTT 31.1 Sodium 137 Potassium 3.8 BUN 21 H Creatinine 0.92 Glucose 96 Magnesium 2.3 Total Bilirubin 0.7 AST 24 ALT 15 Alkaline Phosphatase 77 Lipase Cancelled 10/19/23 16:04 WBC 4.40 Hgb 9.6 L Hct 31.0 L Plt Count 329 PT INR APTT Sodium Potassium BUN Creatinine Glucose Magnesium Total Bilirubin AST ALT Alkaline Phosphatase Lipase Assessment And Plan - Plan Physical Examination General: Alert and oriented x 3, not in acute distress. HEENT: Anicteric sclera, conjunctiva not pale. Neck: Supple, no elevated JVD, no thyromegaly. Lungs: Clear to auscultation bilaterally. No rhonchi, no rales, no crackles. Heart: S1-S2 heard, no murmur no gallop no rub. Normal capillary refill. Abdomen: Soft, nontender, nondistended, no hepatosplenomegaly. Extremities: No pedal edema. No deformity. Neuro: No cranial nerve deficit, no focal motor deficit. Psychiatry: Awake, normal behavior, normal affect. Skin: Warm and dry, no rashes. Assessment and plan Acute pyelonephritis Urine culture is pending. Continue IV Zosyn Obtain blood cultures Continue IV hydration Diet as tolerated Hypertension Patient is currently normotensive. Hold antihypertensives for now Hyperlipidemia Continue statin Acute on chronic anemia No active bleed Monitor H&H closely GI/DVT prophylaxis: SCD Advanced directive full code
[2023-10-20] MEDS: ATORVASTATIN 40 MG TAB PO SCH (20:41)
[2023-10-21 07:03] LABS: Absolute Eosinophils 0.1 K/uL (0-0.5); Absolute Monocytes 0.4 K/uL (0.1-1.3); Absolute Neutrophil 2.2 K/uL (1.8-8.0); Basophils % 0.4 % (0-1.3); Eosinophils % 2.1 % (0-4.4); Hematocrit 23.7 % (36.0-45.0); Hemoglobin 7.5 g/dL (12.0-15.0); Lymphocytes % 26.7 % (15.3-44.8); MCH 30.3 pg (27.0-35.0); MCHC 31.7 g/dL (32.0-36.0); MCV 95.6 fL (80-100); MPV 7.3 fL (7.6-11.3); Monocytes % 11.7 % (3.3-12.3); Neutrophils % 59.1 % (41.7-73.7); Nucleated Red Blood Cells % 0.2 % (0-0); Platelets 252 thou/uL (152-406); RBC Red Blood Cell Count 2.48 M/uL (3.86-4.86); Red Cell Distribution Width 14.9 % (12.1-15.2)
[2023-10-21 07:24] LABS: Anion Gap 5.5 mEq/L (5.0-15.0); Potassium 4.5 mEq/L (3.5-5.1)
--- NOTE | 2023-10-21 09:55 | P.PN ---
Date of Service: 10/21/23 Subjective: 2 episodes of diarrhea that started overnight denies any bloody bowel movement or obvious bleeds. Denies bloody urine. abdominal/flank pain slowly improving last crohns flare up was 4-5 days ago per patient. Reports dealing with multiple episodes of diarrhea at the time. reports she occasionally deals with black stool; last episode ~1 month ago ROS: 10 point ROS as noted above, otherwise negative Physical Exam: GEN: Alert, oriented, NAD HEENT: Normal conjunctiva, sclera anicteric, CV: Regular rate and rhythm, no edema Pulm: Nonlabored respirations on room air, clear bilaterally ABD: soft, mild tenderness Problem List: Acute pyelonephritis acute on chronic anemia; hx iron deficiency Crohn's disease Diarrhea Hypertension Hyperlipidemia hx CAD s/p stents hx RA/OA Acute pyelonephritis on admission, presents with fatigue, weakness, abdominal/flank pain, dysuria for last few days CT abdomen (10/18): Asymmetric urothelial enhancement along the right renal collecting system with mild associated right perinephric fat stranding. Minimal urothelial enhancement along the left renal pelvis. Findings raise concern for bilateral pyelitis. Incidentally noted: Subcentimeter calcific focus within the right aspect of the right fundus may represent a small calcified fibroid Urine cx (10/18): preliminary 4+ GNR, 4+ beta hemolytic strep grp B blood cx (10/18): NGTD Continue empiric IV Zosyn (10/18-) afebrile, no leukocytosis dc ivf 10/20 Diet as tolerated acute on chronic anemia; hx iron deficiency Has history of anemia. Reports getting IV iron infusions in the past. Takes oral iron at home. reports she occasionally deals with black stool; last episode ~1 month ago denies any recent bloody bowel movement or obvious bleeds. Denies bloody urine. per outside recs on 08/15/23: hgb was 11.2, iron 62, tsat% 22% hgb down to 7.5 (10/20) 1 uPRBC ordered 10/20 check iron studies daily labs Crohn's disease last flare up was 4-5 days ago per patient. Reports dealing with multiple episodes of diarrhea at the time. continue home meds Diarrhea reports 2 episodes of diarrhea started overnight/this morning. possibly secondary to infection / antibiotics / crohn's Hypertension Patient is currently normotensive. Hold antihypertensives for now confirm home meds. Hyperlipidemia Continue statin VTE: SCD for now Code: Full Dispo: Home, 1-2 days Pending culture results / hgb stable Time Spent Managing Pts Care (In Minutes): 39
[2023-10-21] MEDS: EZETIMIBE 10 MG TAB PO SCH (10:00)
[2023-10-21] MEDS: MONTELUKAST 10 MG TAB PO SCH (10:00)
[2023-10-21] MEDS ORDERED: NA CHLORIDE 0.9% 250 ML IV SCH (11:00)
--- NOTE | 2023-10-21 12:44 | EKG ---
Test Date: 2023-10-19 Test Time: 15:38:19 [employer] Teacher: MICHAEL MEASUREMENT RESULTS: Intervals: Rate: 84 VA: 204 QRSD: 78 QT: 380 QTc: 449 [place]: P: 44 VA: 204 QRS: -9 T: 35 INTERPRETIVE STATEMENTS: Normal sinus rhythm Normal ECG Compared to ECG 01/03/2023 11:31:41 Myocardial infarct finding no longer present Electronically Signed On 10-21-23 12:41:47 CDT by Abraham Preciado
[2023-10-21] MEDS ORDERED: NA CHLORIDE 0.9% 500 ML IV SCH (13:00)
[2023-10-22] MEDS: LOPERAMIDE HCL 2 MG CAPSULE PO ONE (00:05)
[2023-10-22 06:58] LABS: Absolute Eosinophils 0.1 K/uL (0-0.5); Absolute Lymphocytes (CBC) 1.1 K/uL (0.7-4.9); Absolute Monocytes 0.5 K/uL (0.1-1.3); Absolute Neutrophil 3.6 K/uL (1.8-8.0); Basophils % 0.4 % (0-1.3); Hematocrit 28.9 % (36.0-45.0); Hemoglobin 9.5 g/dL (12.0-15.0); Lymphocytes % 20.7 % (15.3-44.8); MCH 30.5 pg (27.0-35.0); MCV 92.5 fL (80-100); MPV 7.6 fL (7.6-11.3); Monocytes % 9.4 % (3.3-12.3); Neutrophils % 67.5 % (41.7-73.7); Platelets 259 thou/uL (152-406); RBC Red Blood Cell Count 3.12 M/uL (3.86-4.86)
[2023-10-22 07:13] LABS: Anion Gap 5.1 mEq/L (5.0-15.0); Magnesium 2.1 mg/dL (1.6-2.4); Potassium 4.1 mEq/L (3.5-5.1)
[2023-10-22 09:03] VITALS: BP 132/60; TEMP 97.1
--- NOTE | 2023-10-22 10:17 | P.DS ---
Admission Date: 10/19/23 Discharge Date: 10/22/23 Reason for Admission: Nausea, Vomiting, Dysuria Brief History of Present Illness: 73yo F, PMH: anemia, Crohn's disease, hypertension, migraines, Patient came to ER with generalized weakness and dysuria which has been going on for the last few days. Patient states that symptoms started Friday and has been trying [id number] Azo and other medications without much relief. Started having fever subjective and chills. Hide was brought to ER. Denies any chest pain or shortness of breath. Complains of nausea and 1 episode of vomiting. Patient was assessed in the ER and is admitted for further management of pyelonephritis Hospital Course: Problem List: Acute pyelonephritis acute on chronic anemia; hx iron deficiency Crohn's disease Diarrhea, improved Hypertension Hyperlipidemia hx CAD s/p stents hx RA/OA Physician discharge instructions: Patient presents with fatigue, weakness, abdominal/flank pain, dysuria, seconda ry to to acute pyelonephritis, seen on CT imaging. Patient received empiric zosyn while hospitalized and had improvement of her symptoms. Urine culture grew E. coli and Streptococcus Agalactiae grp B, sensitive to Levaquin. Blood cultures have been without growth since 10/19. Patient was feeling better, flank pain improved, afebrile > 24 hours, dysuria resolved, and was deemed stable for discharge. Patient is to complete 10 more days of levaquin on discharge for total of ~2 weeks antibiotics. During her hospitalization, patients hgb dropped from 9.6 to 7.9, then to 7.5 on 10/20 and was given 1 blood transfusion. She reports history of iron deficiency anemia, requiring iron infusions in the past. She denied any recent bloody bowel movement or obvious bleeds but did say she occasionally deals with black stools at home (last episode ~1 month ago). Follow up with PCP for further discussion, consider outpatient GI evaluation/ follow up for possible c.scope to further evaluate black stools. Iron studies this hospitalization: iron 64, tsat% 28.7. Hgb on discharge: 9.5. She did report some diarrhea initially which improved and was somewhat formed. She reported similar diarrhea / bowel issues chronically. Medications: Levaquin x10 days can take over the counter probiotic while on antibiotics Follow up: PCP 3-5 days Please call to schedule / confirm appointments Physical Exam: GEN: Alert, oriented, NAD HEENT: Normal conjunctiva, sclera anicteric, CV: Regular rate and rhythm, no edema Pulm: Nonlabored respirations on room air, clear bilaterally ABD: soft, nontender, nondistended Vital Signs/Physical Exam: Temp Pulse Resp BP Pulse Ox 97.1 F 74 17 132/60 93 10/22/23 08:00 10/22/23 09:47 10/22/23 08:00 10/22/23 09:47 10/22/23 08:00 Laboratory Data at Discharge: WBC 5.30 thou/uL (4.3-10.9) 10/22/23 06:08 Hgb 9.5 g/dL (12.0-15.0) L D 10/22/23 06:08 Hct 28.9 % (36.0-45.0) L 10/22/23 06:08 Plt Count 259 thou/uL (152-406) 10/22/23 06:08 PT 10.9 SECONDS (9.4-12.5) 10/19/23 16:04 INR 0.97 10/19/23 16:04 APTT 31.1 SECONDS (24.3-36.9) 10/19/23 16:04 Sodium 142 mEq/L (136-145) 10/22/23 06:08 Potassium 4.1 mEq/L (3.5-5.1) 10/22/23 06:08 BUN 10 mg/dL (7-18) 10/22/23 06:08 Creatinine 0.60 mg/dL (0.55-1.02) 10/22/23 06:08 Glucose 94 mg/dL (74-106) 10/22/23 06:08 Phosphorus 3.6 mg/dL (2.5-4.9) 10/20/23 05:52 Magnesium 2.1 mg/dL (1.6-2.4) 10/22/23 06:08 Total Bilirubin 0.5 mg/dL (0.2-1.0) 10/20/23 05:52 AST 17 U/L (15-37) 10/20/23 05:52 ALT < 14 U/L (13-56) 10/20/23 05:52 Alkaline Phosphatase 61 U/L (45-117) D 10/20/23 05:52 Lipase Cancelled 10/19/23 16:45 Home Medications: Atorvastatin Calcium [Lipitor] 40 mg PO BEDTIME 04/05/22 Duloxetine HCl [Cymbalta] 60 mg PO BEDTIME 04/05/22 Ezetimibe [Zetia*] 10 mg PO DAILY 04/05/22 Fluticasone/Umeclidin/Vilanter [Trelegy Ellipta 100-62.5-25] 1 each IH BID 04/05/22 Furosemide [Lasix*] 20 mg PO DAILY 04/05/22 Leflunomide [Arava] 10 mg PO DAILY 04/05/22 Levothyroxine Sodium 25 mcg PO 0600 04/05/22 Metoprolol Succinate [Toprol Xl*] 25 mg PO DAILY 04/05/22 Montelukast [Singulair*] 10 mg PO DAILY 04/05/22 Cholecalciferol (Vitamin D3) [Vitamin D3] 5,000 units PO DAILY 10/19/23 Omeprazole 20 mg PO DAILY 10/19/23 Pregabalin [Lyrica*] 75 mg PO TID 10/19/23 lisinopriL [Lisinopril] 10 mg PO DAILY 10/19/23 levoFLOXacin [Levaquin] 750 mg PO DAILY 10 Days #10 tab 10/22/23 New Medications: levoFLOXacin [Levaquin] 750 mg PO DAILY 10 Days #10 tab Physician Discharge Instructions: Physician discharge instructions: Patient presents with fatigue, weakness, abdominal/flank pain, dysuria, secondary to to acute pyelonephritis, seen on CT imaging. Patient received empiric zosyn while hospitalized and had improvement of her symptoms. Urine culture grew E. coli and Streptococcus Agalactiae grp B, sensitive to Levaquin. Blood cultures have been without growth since 10/19. Patient was feeling better, flank pain improved, afebrile > 24 hours, dysuria resolved, and was deemed stable for discharge. Patient is to complete 10 more days of levaquin on discharge for total of ~2 weeks antibiotics. During her hospitalization, patients hgb dropped from 9.6 to 7.9, then to 7.5 on 10/20 and was given 1 blood transfusion. She reports history of iron deficiency anemia, requiring iron infusions in the past. She denied any recent bloody bowel movement or obvious bleeds but did say she occasionally deals with black stools at home (last episode ~1 month ago). Follow up with PCP for further discussion, consider outpatient GI evaluation/ follow up for possible c.scope to further evaluate black stools. Iron studies this hospitalization: iron 64, tsat% 28.7. Hgb on discharge: 9.5. She did report some diarrhea initially which improved and was somewhat formed. She reported similar diarrhea / bowel issues chronically. Medications: Levaquin x10 days can take over the counter probiotic while on antibiotics Follow up: PCP 3-5 days Please call to schedule / confirm appointments Followup: Myra Ireland NP [Primary Care Provider] -
[2023-10-22 10:31] VITALS: O2SAT 94
[2023-10-22] MEDS: levoFLOXacin 750 MG TAB PO ONE (10:58)
== END 2023-10-22 11:59 | disposition home or self-care (01) | DRG 690 ==
LOC: ER 14:42 → 4TH 19:16
PROVIDERS: ADMIT Family Medicine; ATTEND Hospitalist
PROC: 30233N1 Transfusion of Nonautologous Red Blood Cells into Peripheral Vein, Percutaneous Approach (ICD-10-PCS; principal; 2023-10-21)
DX: N10 Acute pyelonephritis (principal); K50.90 Crohn's disease, unspecified, without complications; D63.8 Anemia in other chronic diseases classified elsewhere; D50.9 Iron deficiency anemia, unspecified; M06.9 Rheumatoid arthritis, unspecified; I10 Essential (primary) hypertension; E78.5 Hyperlipidemia, unspecified; E86.0 Dehydration; R53.1 Weakness; N28.9 Disorder of kidney and ureter, unspecified; B96.20 Unspecified Escherichia coli [E. coli] as the cause of diseases classified elsewhere; B95.1 Streptococcus, group B, as the cause of diseases classified elsewhere
CPT/HCPCS: 36415; 36430; 74177; 80048; 80053; 81001; 83540; 83690; 83735; 84100; 84466; 84484; 85025; 85610; 85730; 86850; 86900; 86901; 86920; 87040; 87077; 87086; 87088; 87186; 93005; 94760; 96361; 96365; 99285; J0696; J2543; J7030; J7040; P9016; Q9967

== ENCOUNTER 2024-05-19 10:32 | Day surgery (SDC) | payer OTHER, BC ==
--- NOTE | 2024-05-12 15:12 | RAD REPORT ---
EXAM: Chest Pa And Lat (2 Views) HISTORY: 73 years Female pre op pending knee surgery COMPARISON: 08/08/2023 FINDINGS: LUNGS/PLEURA: The lungs are clear. No pleural effusions or pneumothorax. No pulmonary edema. Calcifie d right lower lobe nodule. CARDIAC/MEDIASTINUM: The cardiac silhouette is within normal limits. UPPER ABDOMEN: No significant abnormality. BONES: No acute abnormality. LINES/TUBES/OTHER: N/A IMPRESSION: No evidence of acute cardiopulmonary disease.
[2024-05-12 15:43] LABS: Absolute Lymphocytes (CBC) 0.4 K/uL (0.7-4.9); Absolute Monocytes 0.6 K/uL (0.1-1.3); Absolute Neutrophil 5.3 K/uL (1.8-8.0); Basophils % 0.2 % (0-1.3); Eosinophils % 0.1 % (0-4.4); Hematocrit 35.5 % (36.0-45.0); Hemoglobin 11.9 g/dL (12.0-15.0); Lymphocytes % 6.5 % (15.3-44.8); MCH 29.8 pg (27.0-35.0); MCHC 33.5 g/dL (32.0-36.0); MCV 88.8 fL (80-100); MPV 8.2 fL (7.6-11.3); Monocytes % 9.2 % (3.3-12.3); Nucleated Red Blood Cells % 0.1 % (0-0); Platelets 245 thou/uL (152-406); Red Cell Distribution Width 15.6 % (12.1-15.2)
[2024-05-12 15:47] LABS: PT Prothrombin Time 12.6 SECONDS (10-13.0); PTT, Activated Partial Thromb 26.9 SECONDS (27.2-37.4); Protime INR 1.11
[2024-05-12 15:52] LABS: Anion Gap 8.5 mEq/L (5.0-15.0); Potassium 3.5 mEq/L (3.5-5.1)
--- NOTE | 2024-05-17 12:18 | EKG ---
Test Date: 2024-05-12 Test Time: 14:34:23 Instructional Systems Designer: JEREMÍAS MEASUREMENT RESULTS: Intervals: Rate: 99 CT: 204 QRSD: 78 QT: 332 QTc: 426 [place]: P: 55 CT: 204 QRS: -14 T: 66 INTERPRETIVE STATEMENTS: Normal sinus rhythm Possible Left atrial enlargement Borderline ECG Compared to ECG 10/19/2023 15:38:19 No significant changes Electronically Signed On 05-17-24 12:07:29 CDT by Abraham Preciado
[2024-05-19] MEDS: LIDOCAINE 1% MPF 5 ML VIAL ONE (11:20)
[2024-05-19] MEDS: EPINEPHRINE 1 MG/ML VIAL ONE (11:20)
[2024-05-19] MEDS: ROPLVACAINE HCL 40 ML ONE (11:20)
[2024-05-19] MEDS: FENTANYL CITR 100 MCG/2 ML ONE (11:20)
[2024-05-19] MEDS: dexAMETHasone 10 MG/ML VIAL ONE (11:20)
[2024-05-19] MEDS: ONDANSETRON 4 MG/2 ML VIAL ONE (11:53)
[2024-05-19] MEDS ORDERED: MIDAZOLAM HCL 2 MG/2 ML INJ ONE (12:12)
[2024-05-19] MEDS: TRANEXAMIC ACID 1,000 MG/10 ML VIAL IV ONE (13:17)
[2024-05-19] MEDS ORDERED: propofoL 200 MG/20 ML VIAL IV ONE (13:51)
[2024-05-19] MEDS ORDERED: LIDOCAINE 1% MPF 5 ML VIAL ONE (13:51)
[2024-05-19] MEDS: Ringers Lactate 1,000 ML IV ONE ×2 (14:41→16:00)
[2024-05-19] MEDS: CEFAZOLIN SODIUM 2 GM/VIAL ONE (15:10)
[2024-05-19] MEDS ORDERED: ONDANSETRON 4 MG/2 ML VIAL ONE (15:13)
--- NOTE | 2024-05-19 16:31 | P.BOP ---
Preoperative diagnosis: Right knee quadriceps tear Postoperative diagnosis: Same Primary procedure: Right knee quadriceps tendon repair Interface Designer: NONE,NONE Estimated blood loss: 10 cc Specimen: Right knee synovium and culture x 2 Findings: See dictation Anesthesia: General Complications: None Implants: None Fluids & blood products: Per anesthesia record Transferred to: Recovery Room Condition: Good
[2024-05-19] MEDS ORDERED: DOCUSATE NA 100 MG CAP PO PRN (16:40)
[2024-05-19 17:00] VITALS: O2SAT 97
[2024-05-19] MEDS: CEFAZOLIN SODIUM 2 GM in NA CHLORIDE 0.9% 100 ML IVPB SCH (17:40)
[2024-05-19 17:53] VITALS: BMI 29.1
[2024-05-19] MEDS: DULOXETINE 30 MG CAP PO SCH (20:43)
[2024-05-19] MEDS: ATORVASTATIN 40 MG TAB PO SCH (20:43)
[2024-05-19] MEDS: METOPROLOL XL 25 MG TAB PO SCH (20:44)
[2024-05-19] MEDS: PREGABALIN 75 MG CAP PO SCH (20:44)
[2024-05-19] MEDS ORDERED: HOME MED 1 EA UNK (Duloxetine Hcl [Cymbalta] 60 MG Capsule.Dr) PO SCH (21:00)
[2024-05-20] MEDS: HYDROCODONE/APAP 7.5/325 MG TAB PO PRN (01:13)
[2024-05-20] MEDS: LEVOTHYROXINE SOD 0.025 MG TAB PO SCH (05:45)
[2024-05-20] MEDS: ENOXAPARIN 30 MG/0.3 ML SQ SCH (05:45)
[2024-05-20] MEDS ORDERED: HOME MED 1 EA UNK (Levothyroxine Sodium [Levothyroxine Sodium] 25 MCG Capsule) PO SCH (06:00)
[2024-05-20 06:04] LABS: Hemoglobin 10.5 g/dL (12.0-15.0)
[2024-05-20 08:46] VITALS: BP 142/63; TEMP 98
[2024-05-20] MEDS: CELECOXIB 100 MG CAPSULE PO SCH (08:52)
[2024-05-20] MEDS: Fluticasone/Umeclidin/Vilanter [Trelegy Ellipta 100-62.5-25] Blst.W.Dev *PT OWN MED IH SCH (08:53)
[2024-05-20] MEDS: VITAMIN D 5,000 UNIT CAP PO SCH (08:54)
[2024-05-20] MEDS: FUROSEMIDE 20 MG TABLET PO SCH (08:54)
[2024-05-20] MEDS: lisinopriL 10 MG TAB PO SCH (08:55)
[2024-05-20] MEDS: EZETIMIBE 10 MG TAB PO SCH (08:55)
[2024-05-20] MEDS: MONTELUKAST 10 MG TAB PO SCH (08:55)
[2024-05-20] MEDS: PANTOPRAZOLE 40MG TABLET PO SCH (08:55)
[2024-05-20] MEDS: ACETAMINOPHEN 325 MG TABLET PO PRN (08:57)
[2024-05-20] MEDS: ONDANSETRON 4 MG/2 ML VIAL IV PRN (08:58)
[2024-05-20] MEDS ORDERED: HOME MED 1 EA UNK (Omeprazole [Omeprazole] 20 MG Capsule.Dr) PO SCH (09:00)
--- NOTE | 2024-05-20 22:20 | OP ---
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 Procedure Performed: Right knee quadriceps tendon repair. Anesthesia: General. Estimated Blood Loss: 10 cc. Complications: None. Implants: None. Specimens: Right knee synovium cultures x2. Indication For Procedure: Ally is a 73-year-old female who is approximately 4 months out from tot al knee arthroplasty. The patient had multiple falls with subsequent pain and weakness to her right knee. Physical exam findings and MRI findings were consistent with the VMO tear. I discussed with t olga patient at length risks and benefits associated with operative and nonoperative treatment measures . She expressed understanding and elected to proceed with operative treatment. Description Of Procedure: After informed consent was obtained, the patient was identified in the pre operative holding area. The right lower extremity was marked. The patient was then brought back to the operating room, transferred to the operating table in the supine fashion, placed under general an esthesia. The right lower extremity was then prepped and draped in usual sterile fashion. A time-ou t was initiated. Correct patient and procedure were confirmed and identified. The patient did recei ve her preoperative prophylactic antibiotics. The right lower extremity was exsanguinated and tourni quet was inflated to 300 mmHg. Prior incision for the total knee was used. Dissection was then take n down to the extensor mechanism. There were no obvious defects within the extensor mechanism; howev er, there appeared to be some insufficiency here near the VMO insertion. A median parapatellar arthr otomy was performed. There was some synovial fluid that was within the knee joint. Cultures were ta mario from the fluid. The knee joint was then irrigated thoroughly with normal saline. The patellar i mplant was evaluated. There was no loosening of the implant and it was stable. The scar tissue at t he prior VMO repair site was then excised as there was not very healthy-appearing tissue. The patien t did have a pretty good tendon near the VMO insertion, which was then approximated, helping to tight en the tissues medially that were prior loose. The distal quadriceps tendon as well as the VMO near 3 o'clock position on the patella was then repaired using #5 Ethibond suture in interrupted fashion f ollowed by running fashion of #1 Vicryl. The knee was then ranged and there was overall good alignme nt and tracking of the patella. The wound was then irrigated thoroughly with normal saline. The fas uma was approximated using 0 Vicryl. Subcutaneous tissue was approximated using 2-0 Vicryl. Skin wa s approximated using ana. Sterile dressing was applied. Tourniquet was let down. The patient w as awakened and transferred to the PACU in stable condition. Postoperative Plan: The patient may be weightbearing as tolerated with the knee held in extension fo r the next 6 weeks. She will be in the hospital overnight and work with physical therapy and be disc harged. KATARZYNA/MODL Voice ID: [id number] Report ID: [id number]
== END 2024-05-20 10:24 | disposition home health service (06) ==
LOC: OR 10:32 → 2ND 16:40 → OR 05-20 10:24
PROVIDERS: ATTEND Orthopaedic Surgery Sports Medicine
PROC: 0S9C0ZZ Drainage of Right Knee Joint, Open Approach (ICD-10-PCS; 2024-05-19)
PROC: 0LQL0ZZ Repair Right Upper Leg Tendon, Open Approach (ICD-10-PCS; principal; 2024-05-19 14:00)
DX: S76.111A Strain of right quadriceps muscle, fascia and tendon, initial encounter (principal); Z96.651 Presence of right artificial knee joint
CPT/HCPCS: 36415; 71046; 80048; 85014; 85018; 85025; 85610; 85730; 87070; 87075; 87205; 88304; 88305; 93005; 94010; 97116; 97161; J0171; J1100; J1650; J2003; J2250; J2405; J2704; J3010; J7120